=== PATIENT | female | born 1990 | race Caucasian/White ===

== ENCOUNTER → 2017-03-27 16:26 | Outpatient (CLI) | payer OTHER, SELFPAY ==
[2017-03-27] MEDS: Lactated Ringers 1,000 ML 1000 ML IV (16:25)
[2017-03-27 16:32] VITALS: BP 133/79; PULSE 86; RESP 18; TEMP 36.8; O2SAT 95; BMI 36.8
== END ==
PROVIDERS: Family Provider Family Medicine; PCP Family Medicine; Visit Provider Obstetrics & Gynecology
DX: O26.899 Other specified pregnancy related conditions, unspecified trimester (principal); R11.0 Nausea; R19.7 Diarrhea, unspecified; Z3A.00 Weeks of gestation of pregnancy not specified
CPT/HCPCS: 96360; J7120; A4216

== ENCOUNTER → 2017-04-29 11:11 | Outpatient (CLI) | payer OTHER, SELFPAY ==
[2017-04-29 11:36] LABS: ROM Internal Control Test YES-OK TO RESULT pt. (Internal QC); ROM Patient Test Negative (Negative)
== END ==
PROVIDERS: Family Provider Family Medicine; PCP Family Medicine; Visit Provider Nurse Practitioner Women's Health
DX: O42.90 Premature rupture of membranes, unspecified as to length of time between rupture and onset of labor, unspecified weeks of gestation (principal)
CPT/HCPCS: 84112

== ENCOUNTER → 2017-05-04 08:39 | Outpatient (CLI) | payer OTHER, SELFPAY ==
[2017-05-04 09:40] LABS: Absolute Lymphocyte Count 1.62 X10^3/ul (0.83-4.51); Absolute Neutrophil Count 6.4 X10^3/uL (2.0-7.7); Basophil# 0.02 X10^3/uL; Basophil% 0.2 % (0-1); Eosinophil# 0.06 X10^3/uL; Eosinophils% 0.7 % (0-5); Hematocrit 32.1 % (37-47); Hemoglobin 10.4 g/dl (12.0-15.0); Lymphocyte # 1.62 X10^3/ul (4.0); Lymphocyte % 18.4 % (19-41); Mean Corp Hgb Conc 32.4 g/gl (32-36); Mean Corpuscular Hgb 28.3 pg (27.0-32.0); Mean Corpuscular Volume 87.2 fL (81-99); Mean Platelet Vol. 12.2 fl (6.2-12.0); Monocyte# 0.69 X10^3/uL; Monocyte% 7.8 % (0-10); Neutrophil # 6.39 X10^3/uL (2.7-7.7); Neutrophil % 72.4 % (47-70); Platelet Count 175 K/mm3 (150-450); RBC Distribution Width CV 14.7 % (11.6-14.6); RBC Distribution Width SD 45.2 fl (35.1-43.9); Red Blood Count 3.68 M/mm3 (4.2-5.4); White Blood Count 8.8 K/mm3 (4.4-11.0)
[2017-05-04 09:41] LABS: POSITIVE COUNT NO; POSITIVE DIFFERENTIAL NO; POSITIVE MORPHOLOGY NO
[2017-05-04 10:04] LABS: Glucose Challenge Gest 1H 50g 93 mg/dL (70-140)
== END ==
PROVIDERS: Family Provider Family Medicine; PCP Family Medicine; Visit Provider Obstetrics & Gynecology
DX: Z34.01 Encounter for supervision of normal first pregnancy, first trimester (principal)
CPT/HCPCS: 36415; 82950; 85025

== ENCOUNTER → 2017-06-15 09:05 | Outpatient (CLI) | payer OTHER, SELFPAY ==
[2017-06-15 13:39] LABS: Absolute Lymphocyte Count 1.38 X10^3/ul (0.83-4.51); Absolute Neutrophil Count 6.6 X10^3/uL (2.0-7.7); Basophil# 0.01 X10^3/uL; Basophil% 0.1 % (0-1); Eosinophil# 0.08 X10^3/uL; Eosinophils% 0.9 % (0-5); Hematocrit 33.7 % (37-47); Hemoglobin 10.8 g/dl (12.0-15.0); Lymphocyte # 1.38 X10^3/ul (4.0); Lymphocyte % 15.9 % (19-41); Mean Corpuscular Hgb 27.7 pg (27.0-32.0); Mean Corpuscular Volume 86.4 fL (81-99); Monocyte% 6.9 % (0-10); Neutrophil # 6.56 X10^3/uL (2.7-7.7); Neutrophil % 75.5 % (47-70); Platelet Count 147 K/mm3 (150-450); RBC Distribution Width CV 15.9 % (11.6-14.6); RBC Distribution Width SD 49.3 fl (35.1-43.9); White Blood Count 8.7 K/mm3 (4.4-11.0)
[2017-06-15 14:03] LABS: Differential Indicated SCAN CRITERIA MET; POSITIVE COUNT NO; POSITIVE DIFFERENTIAL NO; POSITIVE MORPHOLOGY YES
== END ==
PROVIDERS: Nurse Practitioner Women's Health; Family Provider Family Medicine; PCP Family Medicine; Visit Provider Obstetrics & Gynecology
DX: O99.013 Anemia complicating pregnancy, third trimester (principal); Z3A.00 Weeks of gestation of pregnancy not specified
CPT/HCPCS: 36415; 85025

== ENCOUNTER → 2017-06-30 14:19 | Outpatient (CLI) | payer OTHER, SELFPAY ==
[2017-06-30 16:03] LABS: Group B Strep DNA By PCR POSITIVE (Negative); Probe Check PASS
== END ==
PROVIDERS: Visit Provider Obstetrics & Gynecology
DX: Z34.01 Encounter for supervision of normal first pregnancy, first trimester (principal)
CPT/HCPCS: 87653

== ENCOUNTER 2017-07-15 09:47 | Outpatient (CLI) | payer OTHER, SELFPAY ==
--- NOTE | 2017-07-15 10:00 | US_ITS ---
STUDY: OBSTETRICAL ULTRASOUND - BIOPHYSICAL PROFILE REASON FOR EXAM: Female, 27 years old. Decreased movement. LMP: October 21, 2016. PRIOR ULTRASOUND: Comparison is made with prior study dated March 09, 2017. TECHNIQUE: Transabdominal ultrasound evaluation was performed. FINDINGS: There is a single intrauterine fetus. The fetus is in a cephalic presentation. There is demonstrated cardiac activity with a heart rate of 123 bpm. There is a normal amniotic fluid volume. The largest amniotic fluid pocket measures 4.3 cm. The amniotic fluid index (RADHA) is 15.1 cm. The placenta is posterior in location and is not low lying. There are Grade 1 placental changes. Age by LMP: 38 weeks, 1 days. EDUARDO by LMP: July 28, 2017. age by prior US: 37 weeks, 6 days. EDUARDO by prior US: July 30, 2017. age by current US: 38 weeks, 1 days. EDUARDO by current US: July 28, 2017. Gender: Female BIOPHYSICAL PROFILE: Breathing Movements (FBM): 2 Gross Body Movements (GBM): 2 Tone (FT): 2 Amniotic Fluid Volume (AFV): 2 TOTAL SCORE: 8 / 8 US/Biophysical Profile IMPRESSION: Normal biophysical profile of 8/8. Electronically Signed: Moises Owens MD at 12:33 EDT Tel [phone], Service support ,
--- NOTE | 2017-07-15 14:59 | OB.TRI.NOTE ---
- Problem List (1) Decreased movement Status: Acute (2) Variable deceleration Status: Acute History of Present Illness Reason For Visit: DECREASED MOVEMENT Allergies No Known Allergies Allergy (Verified 07/15/17 09:17) - Pertinent Past Medical History Medical History: Past Medical History (Last Reviewed 07/15/17 @ 09:16 by Keysha Deal) PCOS (polycystic ovarian syndrome) NST - FHR Rate Baby A Baseline: 130 Variability:: Moderate Accelerations:: 15 x 15 Decelerations:: None NST Reactive:: Yes FHR Category:: Category I Uterine Activity:: no regular Impression/Plan decreased movement and variable decel in the office bpp 8/ reactive nst no decels reassuring dc home kick counts
== END 2017-07-15 12:00 | disposition home or self-care (01) ==
LOC: WPOUT 09:51 → WP 09:52
PROVIDERS: Family Provider Family Medicine; PCP Family Medicine; Visit Provider Obstetrics & Gynecology
DX: O36.8190 Decreased fetal movements, unspecified trimester, not applicable or unspecified (principal); Z3A.00 Weeks of gestation of pregnancy not specified
CPT/HCPCS: 59025; 59050; 76818; 99218; G0378

== ENCOUNTER 2017-08-03 18:45 | Inpatient (IN) | payer OTHER, SELFPAY ==
[2017-08-03 19:44] VITALS: BMI 42.0
[2017-08-03] MEDS: miSOPROStol 25 MCG TABLET VAGINAL ×2 (19:47→23:54)
[2017-08-03 20:37] LABS: Hematocrit 31.5 % (37-47); Mean Corp Hgb Conc 31.7 g/gl (32-36); Mean Corpuscular Hgb 26.5 pg (27.0-32.0); Mean Corpuscular Volume 83.6 fL (81-99); Platelet Count 131 K/mm3 (150-450); RBC Distribution Width CV 17.1 % (11.6-14.6); Red Blood Count 3.77 M/mm3 (4.2-5.4); White Blood Count 9.1 K/mm3 (4.4-11.0)
[2017-08-03 20:46] LABS: Scan Indicated on CBC? Y/N YES- FLAGS NOTED
[2017-08-03 20:58] LABS: Differential Comment SCANNED
--- NOTE | 2017-08-03 21:07 | HP.PCM_ITS ---
- Problem List (1) Post-dates Status: Acute (2) GBS (group B Streptococcus carrier), +RV culture, currently Status: Acute Comment: pcn in labor (3) Anemia during in third trimester Status: Acute Comment: iron, cbc monthly (4) Supervision of normal Status: Acute Qualifiers: Comment: PRR EDUARDO girl jono 07/28/17 Spencer History Date of Admission: 08/03/17 Final EDUARDO: 07/28/17 Gestational age: 40 Weeks and 6 Days History of this : This is a 27 year-old, at 40 weeks 6 days gestational age prsents for IOL secondary to postdates Medical History: Medical History (Last Reviewed 08/03/17 @ 08:15 by Carin Del Rosario) PCOS (polycystic ovarian syndrome) E28.2 Allergies No Known Allergies Allergy (Verified 07/15/17 09:17) Home Medications: Home Medications vitamin,calcium,fzmkccum-nyzt-aoybm acid tablet 1 tab PO QDAY 01/22/17 Smoking Status: Never smoker Alcohol: None Number of Fetus(es): 1 Heart Tracin moderate variability reactive cat I TOCO Analysis: irregular History Past Pregnancies: Past Pregnancies Delivery Date Name GA/Weeks Outcome Route Weight Gender Labor Length Anesthesia Delivery Location Provider FOB Labs: All Active Problems (Last Reviewed 08/03/17 @ 08:15 by Carin Del Rosario) GBS (group B Streptococcus carrier), +RV culture, currently (Acute) Anemia during in third trimester (Acute) Supervision of normal (Acute) screening encounter (Resolved) Decreased movement (Resolved) Segmental and somatic dysfunction of lumbar region (Resolved) Segmental and somatic dysfunction of pelvic region (Resolved) Segmental and somatic dysfunction of sacral region (Resolved) Variable deceleration (Resolved) Mom's Labs & Results 08/03/17 08/03/17 19:35 19:35 WBC 9.1 RBC 3.77 L Hgb 10.0 L Hct 31.5 L MCV 83.6 MCH 26.5 L MCHC 31.7 L RDW 17.1 H RDW Differential 52.0 H Plt Count 131 L MPV TNP Differential Comment SCANNED Blood Type A POSITIVE Antibody Screen NEGATIVE Course Did the patient receive Yes care? Labs RPR/VDRL/Syphilis Nonreactive Rubella status Immune HbSAg Negative Date Done: 02/23/17 Chlamydia Negative Gonorrhea Negative HIV/AIDS Non-Reactive Group B Strep: Positive Current Obstetrical History Gestational Diabetes No Incompetent Cervix No Infertility Yes: had IUI but not for this , pt with PCOS IUGR No Macrosomia No Hypertension/Pre-eclampsia No Placenta Previa/Abruption No PTL/PROM No Uterine anomaly No Oligohydramnios No Polyhydramnios No Multiple gestation No Past Medical History Asthma No Diabetes No Hypertension No Heart disease No Mitral valve prolapse No Neurologic/Seizure disorder/ No Migraines Kidney disease No Liver disease No Varicosities No Clotting disorders/Hx of DVT No Thyroid Dysfunction No Other medical diseases No Psychiatric disorders No Major trauma No Abnormal PAP smear No Sleep apnea No Mammogram in the last 2 years No Social History Marital Status: Alleged father Spencer Cesar Hx Smoking No Smoking Status Never smoker How long have you used pt denies substances (years)? Expected Delivery Method: Spontaneous Vaginal Review of Systems Constitutional: Denies: Fever, Malaise Eyes: Denies: Blurred vision, Vision Change HEENT: Denies: Head Aches, Visual Changes Cardiovascular: Denies: Chest Pain, Palpitations Respiratory: Denies: Cough, Shortness of Breath, Wheezing Gastrointestinal: Denies: Abdominal Pain, Diarrhea, Nausea, Vomiting Genitourinary: Denies: Dysuria, Hematuria Musculoskeletal: Denies: Joint Pain, Muscle pain Skin: Denies: Lesions, Rash Neurological: Denies: Blurred vision, Focal weakness, Headaches Psychiatric: Denies: Anxiety, Depression Endocrine: Denies: Heat/ Cold Intolerance Hematologic/ Lymphatic: Denies: Easy Bruising, Easy Bleeding Physical Exam General: Alert, Cooperative, No apparent distress HEENT: Atraumatic, Normocephalic. Negative for: Thyromegaly, Lymphadenopathy Cardiovascular: Regular rate Lungs: Normal air movement Abdomen: Soft, Non Tender, Gravid Neurological: Deep Tendon Reflexes 2+/4 and Symmetrical, Neuro grossly intact. Negative for: Clonus [employer]OR: Normal external genitalia. Negative for: Vulvar lesions Estimated gestational size: Appropriate for gestational size Presentation: Cephalic Assessment/Plan All Active Problems (Last Reviewed 08/03/17 @ 08:15 by Carin Del Rosario) Post-dates (Acute) GBS (group B Streptococcus carrier), +RV culture, currently (Acute) Anemia during in third trimester (Acute) Supervision of normal (Acute) screening encounter (Resolved) Decreased movement (Resolved) Segmental and somatic dysfunction of lumbar region (Resolved) Segmental and somatic dysfunction of pelvic region (Resolved) Segmental and somatic dysfunction of sacral region (Resolved) Variable deceleration (Resolved) This is a 27 year-old, at 40 weeks 6d gestational age prsents for IOL due to postdates plan cytotec then pitocin gbs positive give pcn epi PRN
[2017-08-03] MEDS: DiphenhydrAMINE 25 MG Capsule 50 MG PO (21:22)
[2017-08-04] VITALS (14 sets, daily range): BP systolic 99–138; BP diastolic 56–86; PULSE 67–94; RESP 16–18; TEMP 36–37.2; O2SAT 96–100
[2017-08-04] MEDS: Nalbuphine 10 MG/ML Ampul IV ×3 (00:10→12:46)
[2017-08-04] MEDS: 0.9% Saline Lock 10 ML Syringe IV ×2 (00:10→04:55)
[2017-08-04] MEDS: miSOPROStol 25 MCG TABLET VAGINAL ×2 (03:48→08:31)
--- NOTE | 2017-08-04 10:59 | PCM.PN.BLA ---
Progress Note patient doing wel overnight cytotec, category I tracing. epi PRN.
[2017-08-04] MEDS: Lactated Ringers 1,000 ML 50 ML IV (13:00)
[2017-08-04] MEDS: fentaNYL-bupivacaine (epidural) 100 ML BAG EPIDURAL (14:05)
[2017-08-04] MEDS: Ondansetron 4 MG/2 ML Vial IV (14:18)
[2017-08-04] MEDS: Amnioinfusion- 0.9% NS 1,000 ML IV.SOLN. 500 ML INTRA-UTER (14:30)
[2017-08-04] MEDS: Terbutaline 1 MG/ML Vial 0.25 MG SC (14:43)
[2017-08-04] MEDS: Oxytocin 30 units/NS 500 ml 30 UNITS/500 ML IV.SOLN 167 UNITS IV (15:03)
[2017-08-04] MEDS: Lactated Ringers 1,000 ML 100 ML IV (20:20)
[2017-08-04] MEDS: Ketorolac 30 MG/ML Syringe IV (21:32)
[2017-08-04] MEDS: Cefazolin 1 GM/50 ML BAG IV (22:31)
[2017-08-05] VITALS (13 sets, daily range): BP systolic 120–139; BP diastolic 73–83; PULSE 81–102; RESP 16–18; TEMP 36.6–37.4; O2SAT 94–98
[2017-08-05] MEDS: Ketorolac 30 MG/ML Syringe IV ×4 (04:17→22:10)
[2017-08-05 04:51] LABS: Hematocrit 28.4 % (37-47); Hemoglobin 8.9 g/dl (12.0-15.0); Mean Corp Hgb Conc 31.3 g/gl (32-36); Mean Corpuscular Hgb 26.3 pg (27.0-32.0); Platelet Count 115 K/mm3 (150-450); RBC Distribution Width CV 17.4 % (11.6-14.6); RBC Distribution Width SD 53.4 fl (35.1-43.9); Red Blood Count 3.38 M/mm3 (4.2-5.4); White Blood Count 11.4 K/mm3 (4.4-11.0)
[2017-08-05 05:10] LABS: Differential Comment SCAN; Scan Indicated on CBC? Y/N YES- FLAGS NOTED
--- NOTE | 2017-08-05 05:29 | NURSING ---
At 0430 Patient up to bathroom with assistance from this RN and Felipe RN, performed giovanna care and changed pads. Pt tolerated this activity well and went back to bed.
[2017-08-05] MEDS: Cefazolin 1 GM/50 ML BAG IV (06:49)
--- NOTE | 2017-08-05 06:56 | PCM.OPRPT ---
Problem List (1) Post-dates Status: Acute (2) GBS (group B Streptococcus carrier), +RV culture, currently Status: Acute Comment: pcn in labor (3) Anemia during in third trimester Status: Acute Comment: iron, cbc monthly (4) Supervision of normal Status: Acute Qualifiers: Comment: PRR EDUARDO girl jono 07/28/17 Spencer (5) bradycardia Status: Acute (6) Failed vacuum extraction delivery Status: Acute Report of Operation Date of Procedure: 08/04/17 Pre-Operative Diagnosis: bradycardia, failed vacuum delivery Post-Operative Diagnosis: same Surgery/Procedure Performed:: ltcs stat Description of Surgical Findings:: vertex female Type of Anesthesia:: Epidural Special Medications: terbutaline Specimen's removed: vertex female Estimated Blood Loss (mL): 900 Fluids Replaced: crystalloid Description of Procedure: Patient presented for induction of labor secondary to postdates. Patient underwent Cytotec induction of labor and made change to 2 cm 80% effaced and -2 station. Patient proceeded to make dilation on her own and therefore Pitocin was not started. Patient developed mild recurrent periodic variables and resuscitative maneuvers were employed with IV fluids, oxygen, position changes, and an amnioinfusion was started. She then developed a prolonged deceleration and was transported to the OR for possible immediate . Terbutaline was given during this time. Patient was rechecked and noted to be completely dilated and +2 station. Lovelace catheter was in place. Anesthesia was present and back up was in place for an emergent if necessary. Epidural anesthesia was in place. It was felt that there was an adequate pelvis and the size was approximately 8 pounds. heart rate initially recovered for a minute to a normal baseline with marked variability but then again showed showed minimal to moderate variability but persistent bradycardia into the 70s-80s was noted pulls were made the patient was placed in the dorsal supine position with leftward tilt. Patient was prepped and draped the splash Betadine prep. Patient was checked and noted to have an adequate epidural anesthesia so anesthesia dosed her IV with medication and prepared for general anesthesia if needed. The patient was again checked and was communicated with anesthesia that they would continue giving her anesthesia and the initial incision was made and the patient checked and gave permission to proceed. Incision was carried through to the underlying layer of fascia with the scalpel. Fascia was nicked in the midline and the incision extended laterally and the peritoneum was entered digitally. The incision was stretched and a low transverse uterine incision was made with the scalpel. With aid from a hand from below the infant's head was delivered atraumatically followed by the anterior and posterior shoulders without complication the rest of the infant delivered. The cord was clamped and cut and the infant was handed off to awaiting nurse. The placenta was delivered spontaneously immediately following and was noted to be intact and have a three-vessel cord. The uterus was exteriorized cleared of all clots and debris, and the incision was closed in a double layer closure using #1 Monocryl. The uterus was returned to the maternal abdomen and gutters were cleared of all clots and debris. The ovaries and fallopian tubes were noted to be within normal limits. The peritoneum was closed with 3-0 Monocryl in a running fashion. Fascia was closed with 0 PDS in a running fashion. Subcutaneous tissue was copiously irrigated and the subcutaneous space and the skin was closed with 3-0 Monocryl. Mepilex dressing applied. Patient was taken to recovery in stable condition. Grafts/Implants Used: none - Complications none
--- NOTE | 2017-08-05 07:11 | OP.PCM_ITS ---
Problem List (1) Post-dates Status: Acute (2) GBS (group B Streptococcus carrier), +RV culture, currently Status: Acute Comment: pcn in labor (3) Anemia during in third trimester Status: Acute Comment: iron, cbc monthly (4) Supervision of normal Status: Acute Qualifiers: Comment: PRR EDUARDO girl jono 07/28/17 Spencer (5) bradycardia Status: Acute (6) Failed vacuum extraction delivery Status: Acute Report of Operation Date of Procedure: 08/04/17 Pre-Operative Diagnosis: bradycardia, failed vacuum delivery Post-Operative Diagnosis: same Surgery/Procedure Performed:: ltcs stat Description of Surgical Findings:: vertex female Type of Anesthesia:: Epidural Special Medications: terbutaline Specimen's removed: vertex female Estimated Blood Loss (mL): 900 Fluids Replaced: crystalloid Description of Procedure: Patient presented for induction of labor secondary to postdates. Patient underwent Cytotec induction of labor and made change to 2 cm 80% effaced and -2 station. Patient proceeded to make dilation on her own and therefore Pitocin was not started. Patient developed mild recurrent periodic variables and resuscitative maneuvers were employed with IV fluids, oxygen, position changes, and an amnioinfusion was started. She then developed a prolonged deceleration and was transported to the OR for possible immediate . Terbutaline was given during this time. Patient was rechecked and noted to be completely dilated and +2 station. Lovelace catheter was in place. Anesthesia was present and back up was in place for an emergent if necessary. Epidural anesthesia was in place. It was felt that there was an adequate pelvis and the size was approximately 8 pounds. heart rate initially recovered for a minute to a normal baseline with marked variability but then again showed showed minimal to moderate variability but persistent bradycardia into the 70s- 80s was noted pulls were made the patient was placed in the dorsal supine position with leftward tilt. Patient was prepped and draped the splash Betadine prep. Patient was checked and noted to have an adequate epidural anesthesia so anesthesia dosed her IV with medication and prepared for general anesthesia if needed. The patient was again checked and was communicated with anesthesia that they would continue giving her anesthesia and the initial incision was made and the patient checked and gave permission to proceed. Incision was carried through to the underlying layer of fascia with the scalpel. Fascia was nicked in the midline and the incision extended laterally and the peritoneum was entered digitally. The incision was stretched and a low transverse uterine incision was made with the scalpel. With aid from a hand from below the 's head was delivered atraumatically followed by the anterior and posterior shoulders without complication the rest of the delivered. The cord was clamped and cut and the was handed off to awaiting nurse. The placenta was delivered spontaneously immediately following and was noted to be intact and have a three-vessel cord. The uterus was exteriorized cleared of all clots and debris, and the incision was closed in a double layer closure using #1 Monocryl. The uterus was returned to the maternal abdomen and gutters were cleared of all clots and debris. The ovaries and fallopian tubes were noted to be within normal limits. The peritoneum was closed with 3-0 Monocryl in a running fashion. Fascia was closed with 0 PDS in a running fashion. Subcutaneous tissue was copiously irrigated and the subcutaneous space and the skin was closed with 3-0 Monocryl. Mepilex dressing applied. Patient was taken to recovery in stable condition. Grafts/Implants Used: none - Complications none
[2017-08-05] MEDS: Lactated Ringers 1,000 ML 100 ML IV (07:43)
[2017-08-05] MEDS: Acetaminophen 500 MG Tablet 1000 MG PO (07:47)
[2017-08-05] MEDS: Senna/Docusate Sodium 1 Tablet PO (07:47)
[2017-08-05] MEDS: Prenatal Vits Tablet 1 TABLET PO (09:29)
[2017-08-05] MEDS: 0.9% Saline Lock 10 ML Syringe IV ×2 (09:30→22:10)
[2017-08-05] MEDS: oxyCODONE 5 MG Tablet PO ×2 (15:10→19:47)
[2017-08-05] MEDS: Albuterol 2.5 MG/3 ML VIAL.NEB. INHALATION (17:32)
--- NOTE | 2017-08-05 20:22 | PCM.PN.OB ---
Patient Problems: Active and Suspected Problems (Last Reviewed 08/03/17 @ 08:15 by Carin Del Rosario) Post-dates (Acute) bradycardia (Acute) Failed vacuum extraction delivery (Acute) Subjective: late entry- patient seen at 7:45 am no cp sob n v doing well ambulating - Physical Exam General: Alert, Oriented x3 Vital Signs Temp Pulse Resp BP Pulse Ox 99.1 F 102 H 18 139/82 H 94 08/05/17 19:45 08/05/17 19:45 08/05/17 19:45 08/05/17 19:45 08/05/17 16:16 Oxygen Delivery Method Room Air Weight: 260 lb 2.327 oz Body Mass Index (BMI) 42.0 Intake and Output for Last 24 Hours 08/03/17 08/04/17 08/05/17 23:59 23:59 23:59 Intake Total 2800 / 2800 1556 / 1556 Output Total 150 / 150 1600 / 1600 Balance 2650 / 2650 -44 / -44 Laboratory Tests Past 24 Hrs 08/05/17 04:25 WBC 11.4 H RBC 3.38 L Hgb 8.9 L Hct 28.4 L MCV 84.0 MCH 26.3 L MCHC 31.3 L RDW 17.4 H RDW Differential 53.4 H Plt Count 115 L Differential Comment SCAN Medical Necessity - Tobacco Use Smoking Status: Never smoker Assessment/Plan All Active Problems (Last Reviewed 08/03/17 @ 08:15 by Carin Del Rosario) Post-dates (Acute) bradycardia (Acute) Failed vacuum extraction delivery (Acute) GBS (group B Streptococcus carrier), +RV culture, currently (Acute) Anemia during in third trimester (Acute) Supervision of normal (Acute) screening encounter (Resolved) Decreased movement (Resolved) Segmental and somatic dysfunction of lumbar region (Resolved) Segmental and somatic dysfunction of pelvic region (Resolved) Segmental and somatic dysfunction of sacral region (Resolved) Variable deceleration (Resolved) s/p LTCS routine care bam sumner
[2017-08-06 02:50] VITALS: BP 137/83; PULSE 94; RESP 17; TEMP 36.1
[2017-08-06] MEDS: Albuterol 2.5 MG/3 ML VIAL.NEB. INHALATION ×2 (03:09→23:00)
[2017-08-06 03:10] VITALS: PULSE 94; RESP 18
[2017-08-06] MEDS: 0.9% Saline Lock 10 ML Syringe IV (04:03)
[2017-08-06] MEDS: Ketorolac 30 MG/ML Syringe IV (04:03)
[2017-08-06] MEDS: oxyCODONE 5 MG Tablet PO ×6 (04:03→23:22)
[2017-08-06 08:00] VITALS: BP 133/80; PULSE 96; RESP 16; TEMP 37.1
[2017-08-06] MEDS: Senna/Docusate Sodium 1 Tablet PO (08:34)
[2017-08-06] MEDS: Prenatal Vits Tablet 1 TABLET PO (08:35)
[2017-08-06] MEDS: Naproxen 250 MG Tablet PO ×2 (10:06→20:52)
[2017-08-06 13:30] VITALS: BP 148/86; PULSE 98; RESP 18; TEMP 37.2
[2017-08-06] MEDS: Pantoprazole Sodium 20 MG Tablet PO ×2 (13:36→23:22)
[2017-08-06 20:20] VITALS: BP 134/77; PULSE 94; RESP 16; TEMP 37.3
[2017-08-06 23:00] VITALS: PULSE 86; RESP 16
[2017-08-07 02:00] VITALS: BP 137/89; PULSE 99; RESP 16; TEMP 37.1
[2017-08-07 08:30] VITALS: BP 133/73; PULSE 89; RESP 18; TEMP 36.7; O2SAT 97
[2017-08-07] MEDS: oxyCODONE 5 MG Tablet PO ×3 (08:39→20:31)
[2017-08-07] MEDS: Prenatal Vits Tablet 1 TABLET PO (08:41)
[2017-08-07] MEDS: Pantoprazole Sodium 20 MG Tablet PO ×2 (09:40→22:02)
--- NOTE | 2017-08-07 12:52 | PCM.PN.OB ---
Patient Problems: Active and Suspected Problems (Last Reviewed 08/03/17 @ 08:15 by Carin Del Rosario) Post-dates (Acute) bradycardia (Acute) Failed vacuum extraction delivery (Acute) Subjective: doing well but having some pain control issues, some SOB at times, better with breathing treatments - Physical Exam General: Alert, Oriented x3 Lungs: Clear to auscultation Cardiovascular: Regular rate Abdomen: Soft, Non Tender Vital Signs Temp Pulse Resp BP Pulse Ox 98.1 F 89 18 133/73 H 97 08/07/17 08:30 08/07/17 08:30 08/07/17 08:30 08/07/17 08:30 08/07/17 08:30 Oxygen Delivery Method Room Air Weight: 260 lb 2.327 oz Body Mass Index (BMI) 42.0 Intake and Output for Last 24 Hours 08/05/17 08/06/17 08/07/17 23:59 23:59 23:59 Intake Total 1556 / 1556 Output Total 1600 / 1600 Balance -44 / -44 Medical Necessity - Tobacco Use Smoking Status: Never smoker Assessment/Plan All Active Problems (Last Reviewed 08/03/17 @ 08:15 by Carin Del Rosario) Post-dates (Acute) bradycardia (Acute) Failed vacuum extraction delivery (Acute) GBS (group B Streptococcus carrier), +RV culture, currently (Acute) Anemia during in third trimester (Acute) Supervision of normal (Acute) screening encounter (Resolved) Decreased movement (Resolved) Segmental and somatic dysfunction of lumbar region (Resolved) Segmental and somatic dysfunction of pelvic region (Resolved) Segmental and somatic dysfunction of sacral region (Resolved) Variable deceleration (Resolved) s/p LTCS routine care dc home tomorrow
[2017-08-07] MEDS: Naproxen 250 MG Tablet PO (13:19)
[2017-08-07 13:22] VITALS: PULSE 88; RESP 16
[2017-08-07] MEDS: Albuterol 2.5 MG/3 ML VIAL.NEB. INHALATION (13:22)
[2017-08-07 14:30] VITALS: BP 148/85; PULSE 109; RESP 18; TEMP 36.9; O2SAT 95
[2017-08-07 20:20] VITALS: BP 130/73; PULSE 100; RESP 18; TEMP 36.7
[2017-08-07] MEDS: Senna/Docusate Sodium 1 Tablet PO (20:30)
[2017-08-08] MEDS: Naproxen 250 MG Tablet PO (03:17)
[2017-08-08] MEDS: oxyCODONE 5 MG Tablet PO ×2 (03:18→11:01)
[2017-08-08 03:35] VITALS: BP 140/92; PULSE 78; RESP 18; TEMP 36.8
[2017-08-08] MEDS: Albuterol 2.5 MG/3 ML VIAL.NEB. INHALATION (04:34)
[2017-08-08 04:35] VITALS: PULSE 89; RESP 18
--- NOTE | 2017-08-08 05:25 | PCM.DC.SUM ---
Discharge Date and Diagnosis - Problem List Patient Problems: Active and Suspected Problems (Last Reviewed 08/03/17 @ 08:15 by Carin Del Rosario) Post-dates (Acute) bradycardia (Acute) Failed vacuum extraction delivery (Acute) Date of Admission: 08/03/17 Date of Discharge: 08/08/17 - Primary Discharge Diagnosis Active and Suspected Problems (Last Reviewed 08/03/17 @ 08:15 by Carin Del Rosario) Post-dates (Acute) bradycardia (Acute) Failed vacuum extraction delivery (Acute) Hospital Course and Treatment Consultations 08/03/17 18:55 Consult: Anesthesia Routine Comment: Reason For Exam: labor Operations: - - LTCS Summary of Care Provided: The patient is a 27 year old F presents IOL postdates and then proceeded to dilate and developed a bradycardia and she underwent a failed vacuum delivery followed by a primary csection. she had a routine recovery with a return of bowel and bladder function, stable for dc to home on pod 4 Discharge Diet: No Restrictions Discharge Activity: Return to Normal Activity Home Medications: Medications to take at Discharge vitamin,calcium,xcdqzdzh-yicf-rjkzf acid tablet 1 tab PO QDAY 01/22/17 Primary Care Physician: Care Physician,No Primary [Primary Care Provider] - Medical Necessity - Tobacco Use Smoking Status: Never smoker Meaningful Use Info Meaningful Use Diagnoses (Choose all that apply): None applicable
--- NOTE | 2017-08-08 05:30 | DCINST_ITS ---
Discharge Diet: No Restrictions Discharge Activity: Return to Normal Activity May resume sexual activity in: 4-6 weeks Lifting Restrictions: 20 pounds Additional Activity Instructions:: Nothing in the vagina for 4-6 weeks. You may return to work/school in 6 weeks. Call your doctor if your incision/area has: Continuous Slow Oozing, Sudden Increased Bleeding, Increased Pain/ Swelling, Increased Redness, Foul Smelling Discharge Call your doctor if you observe: Fever of 101 or Higher, Using more than one pad per hour - for 2 hours Suture Line Care: Avoid Pulling/Pushing, Avoid Pinching/Bending Cleanse incision/area with: Keep Dressing Clean & Dry Additional Instructions: If you experience any of the following, contact your healthcare provider. * Bleeding that soaks a pad every hour for 2 hours * Fever 100.4 or higher * Unrelieved incision or abdominal pain * Swelling, redness, discharge or bleeding from your incision or episiotomy site * Your incision begins to separate * Problems urinating (including inability to urinate or burning while urinating) . * Visual changes * Severe headache * Flu-like symptoms * Pain or redness in one of both of your breasts * Pain, warmth, tenderness or swelling in your legs, especially the calf area * Frequent nausea and vomiting * Symptoms of depression or anxiety If you experience any of the following, call 911 or go to the nearest Emergency Room. * Chest pain * Problems breathing * Seizure activity * Partial or complete paralysis of a body part, slurred speech, weakness or drooping of the face, or a sudden inability to walk or hold your balance Allergies/Adverse Reactions: Allergies No Known Allergies Allergy (Verified 07/15/17 09:17) Medications to take at Discharge vitamin,calcium,kvhoyuxw-ywuk-vfrwz acid tablet 1 tab PO QDAY 01/22/17 Naproxen [Naprosyn] 250 - 500 mg PO Q8H PRN PRN #30 tab 08/08/17 Oxycodone HCl/Acetaminophen [Percocet 5-325] 1 - 2 tablet PO Q4H PRN PRN 7 Days #28 tablet 08/08/17 The following prescriptions were given: Oxycodone HCl/Acetaminophen [Percocet 5-325] 1 - 2 tablet PO Q4H PRN PRN 7 Days #28 tablet PRN Reason: Moderate-Severe pain Naproxen [Naprosyn] 250 - 500 mg PO Q8H PRN PRN #30 tab PRN Reason: MILD PAIN Follow-Up: Call to make an appointment with your doctor for an incision check in 1-2 weeks. You will also need a 6 week post- follow up appointment. Please Follow Up With: Viki Lopez MD - Call to make an appointment for an incision check in 1-2 [phone] When: You will need a post- check in 6 weeks. Primary Care Physician: Care Physician,No Primary [Primary Care Provider] -
[2017-08-08 08:10] VITALS: BP 140/60; PULSE 78; RESP 16; TEMP 36.8; O2SAT 98
--- NOTE | 2017-08-08 10:12 | NURSING ---
This nurse went into to do 2 hour check on patient. Patient showed this nurse a cup with mucus that was blood tinged. This nurse contacted Dr. Lopez and is awaiting orders.
[2017-08-08] MEDS: Pantoprazole Sodium 20 MG Tablet PO (10:34)
[2017-08-08] MEDS: Prenatal Vits Tablet 1 TABLET PO (10:34)
--- NOTE | 2017-08-08 10:55 | RAD_ITS ---
STUDY: X-RAY CHEST REASON FOR EXAM: Female, 27 years old. Productive cough, bloody sputum TECHNIQUE: PA and lateral views of the chest. COMPARISON: None. FINDINGS: The lungs are clear and expanded. There is no demonstrated pleural abnormality. Normal size heart. Normal mediastinum and toribio. Normal visualized pulmonary arteries. Normal visualized aortic arch and descending thoracic aorta. Normal visualized thoracic spine. Normal visualized ribs, clavicles, and shoulders. There is no demonstrated abnormality of the visualized soft tissue structures of the upper abdomen. RAD/Chest PA and Lateral IMPRESSION: Normal x-ray examination of the chest. Electronically Signed: Juanpablo Puentes DO at 11:40 EDT Tel , Service support ,
[2017-08-08 11:32] LABS: Absolute Lymphocyte Count 1.26 X10^3/ul (0.83-4.51); Absolute Neutrophil Count 5.1 X10^3/uL (2.0-7.7); Basophil# 0.02 X10^3/uL; Basophil% 0.3 % (0-1); Eosinophil# 0.17 X10^3/uL; Eosinophils% 2.4 % (0-5); Hematocrit 25.6 % (37-47); Hemoglobin 8.1 g/dl (12.0-15.0); Lymphocyte # 1.26 X10^3/ul (4.0); Lymphocyte % 18.1 % (19-41); Mean Corp Hgb Conc 31.6 g/gl (32-36); Mean Corpuscular Hgb 27.5 pg (27.0-32.0); Mean Corpuscular Volume 86.8 fL (81-99); Mean Platelet Vol. 11.7 fl (6.2-12.0); Monocyte# 0.35 X10^3/uL; Neutrophil # 5.11 X10^3/uL (2.7-7.7); Neutrophil % 73.5 % (47-70); Platelet Count 190 K/mm3 (150-450); RBC Distribution Width CV 17.1 % (11.6-14.6); RBC Distribution Width SD 53.2 fl (35.1-43.9); Red Blood Count 2.95 M/mm3 (4.2-5.4)
[2017-08-08 11:33] LABS: POSITIVE COUNT NO; POSITIVE DIFFERENTIAL NO; POSITIVE MORPHOLOGY NO
[2017-08-08 14:00] VITALS: BP 125/80; PULSE 78; RESP 16; TEMP 36.8; O2SAT 99
== END 2017-08-08 15:35 | disposition home or self-care (01) | DRG 765 ==
PROVIDERS: Admitting Provider Obstetrics & Gynecology; Visit Provider Obstetrics & Gynecology
DX: O76 Abnormality in fetal heart rate and rhythm complicating labor and delivery (principal); O98.82 Other maternal infectious and parasitic diseases complicating childbirth; O48.0 Post-term pregnancy; Z3A.40 40 weeks gestation of pregnancy; O66.5 Attempted application of vacuum extractor and forceps; O99.02 Anemia complicating childbirth; B95.1 Streptococcus, group B, as the cause of diseases classified elsewhere; Z37.0 Single live birth
CPT/HCPCS: 59025; 59050; 71046; 85025; 85027; 86850; 86900; 94640; 99218; J7030; J7120; A4216; G0378; J2405

== ENCOUNTER 2017-08-09 14:00 | Outpatient (CLI) | payer OTHER, SELFPAY | END 2017-08-09 15:35 | disposition home or self-care (01) | LOC: WPOUT 14:09 → WP 14:10 | PROVIDERS: Visit Provider Obstetrics & Gynecology | DX: O92.79 Other disorders of lactation (principal) | CPT/HCPCS: 96152 ==

== ENCOUNTER 2017-08-11 18:30 | Outpatient (CLI) | payer OTHER, SELFPAY | END 2017-08-11 19:20 | disposition home or self-care (01) | LOC: WPOUT 19:00 → WP 19:01 | PROVIDERS: Visit Provider Obstetrics & Gynecology | DX: Z39.1 Encounter for care and examination of lactating mother (principal) | CPT/HCPCS: 96152 ==

== ENCOUNTER 2017-08-27 09:04 | Outpatient (CLI) | payer OTHER, SELFPAY | END 2017-08-27 10:05 | disposition home or self-care (01) | LOC: WPOUT 09:05 → WP 09:06 | PROVIDERS: Visit Provider Obstetrics & Gynecology | DX: O92.70 Unspecified disorders of lactation (principal) | CPT/HCPCS: 96152 ==

== ENCOUNTER 2017-09-28 15:15 | Outpatient (CLI) | payer OTHER, SELFPAY | END 2017-09-28 15:45 | disposition home or self-care (01) | LOC: WPOUT 15:15 → WP 15:17 | PROVIDERS: Visit Provider Obstetrics & Gynecology | DX: O92.79 Other disorders of lactation (principal) | CPT/HCPCS: 96152 ==

== ENCOUNTER → 2018-02-03 08:34 | Outpatient (CLI) | payer OTHER, SELFPAY ==
[2018-01-28 14:45] VITALS: BMI 37.5
[2018-02-03 12:50] LABS: Absolute Lymphocyte Count 1.25 X10^3/ul (0.83-4.51); Absolute Neutrophil Count 2.9 X10^3/uL (2.0-7.7); Basophil# 0.03 X10^3/uL; Basophil% 0.6 % (0-1); Eosinophil# 0.07 X10^3/uL; Eosinophils% 1.5 % (0-5); Hematocrit 36.2 % (37-47); Lymphocyte # 1.25 X10^3/ul (4.0); Lymphocyte % 26.8 % (19-41); Mean Corp Hgb Conc 30.4 g/gl (32-36); Mean Corpuscular Hgb 23.7 pg (27.0-32.0); Monocyte# 0.36 X10^3/uL; Monocyte% 7.7 % (0-10); Neutrophil # 2.94 X10^3/uL (2.7-7.7); Neutrophil % 63.2 % (47-70); Platelet Count 186 K/mm3 (150-450); RBC Distribution Width CV 16.2 % (11.6-14.6); RBC Distribution Width SD 46.3 fl (35.1-43.9); Red Blood Count 4.64 M/mm3 (4.2-5.4); White Blood Count 4.7 K/mm3 (4.4-11.0)
[2018-02-03 12:51] LABS: Differential Indicated SCAN CRITERIA MET; POSITIVE COUNT NO; POSITIVE DIFFERENTIAL NO; POSITIVE MORPHOLOGY YES
[2018-02-03 13:06] LABS: ALB/GLOB Ratio 0.9 RATIO (0.9-2.4); AST(SGOT) 14 U/L (15-37); Alanine Aminotransfer ALT/SGPT 27 U/L (13-56); Albumin, Serum 3.4 g/dL (3.2-5.0); Alkaline Phosphatase 43 U/L (45-117); Anion Gap 11 (5-15); BUN 12 mg/dL (7-18); BUN/Creat Ratio 13.5 RATIO (10-20); Calcium,Total 8.6 mg/dL (8.5-10.1); Chloride 108 mmol/L (98-107); Cholesterol 140 mg/dL (200); Creatinine, Serum 0.89 mg/dL (0.55-1.02); EST Glomerular Filtration Rate 80 mL/min (>60); Est Glom Filt Rate - Afr Amer 97 mL/min (>60); Globulin 3.8 g/dL (2.2-4.2); Glucose 81 mg/dL (74-106); High Density Lipoprotein 61 mg/dL; Potassium 4.2 mmol/L (3.5-5.1); Protein, Total 7.2 g/dL (6.4-8.2); Sodium Level 140 mmol/L (136-145); T4 Free Direct 1.17 ng/dL (0.76-1.46); Thyroid Stim Hormone (TSH) 1.53 uIU/mL (0.358-3.74); Triglycerides 83 mg/dL; Very Low Density Lipoprotein 17 mg/dL (5-40)
--- OUTSIDE RECORDS SUMMARY | 2018-05-07 09:09 | XMS RPT_ITS ---
:1990 Author Organization OHIP Support Name Relationship Address Phone JANAY SPENCER Unavailable [address] + [place] [address] UE Unavailable Unavailable Unavailable HAY, SPENCER Unavailable [address] + [place] [address] UE Unavailable Unavailable Unavailable HAY, SPENCER Unavailable [address] + [place] [address] UE Unavailable Unavailable Unavailable HAY, SPENCER Unavailable [address] + [place] [address] UE Unavailable Unavailable Unavailable HAY, SPENCER Unavailable [address] + [place] [address] UE Unavailable Unavailable Unavailable HAY, SPENCER Unavailable [address] + [place] [address] UE Unavailable Unavailable Unavailable HAY, SPENCER Unavailable [address] + [place] [address] UE Unavailable Unavailable Unavailable HAY, SPENCER Unavailable [address] + [place] [address] UE Unavailable Unavailable Unavailable HAY, SPENCER Unavailable [address] + [place] [address] UE Unavailable Unavailable Unavailable HAY, SPENCER Unavailable [address] + [place] [address] UE Unavailable Unavailable Unavailable HAY, SPENCER Unavailable [address] + [place] [address] UE Unavailable Unavailable Unavailable HAY, SPENCER Unavailable [address] + [place] [address] UE Unavailable Unavailable Unavailable HAY, SPENCER Unavailable [address] + [place] [address] UE Unavailable Unavailable Unavailable HAY, SPENCRE Unavailable [address] + [place] [address] UE Unavailable Unavailable Unavailable HAY, SPENCER Unavailable [address] + [place] [address] UE Unavailable Unavailable Unavailable HAY, SPENCER Unavailable [address] + [place] [address] UE Unavailable Unavailable Unavailable HAY, SPENCER Unavailable [address] + [place] [address] UE Unavailable Unavailable Unavailable HAY, SPENCER Unavailable [address] + [place] [address] UE Unavailable Unavailable Unavailable HAY, SPENCER Unavailable [address] + [place] [address] UE Unavailable Unavailable Unavailable HAY, SPENCER Unavailable [address] + [place] [address] UE Unavailable Unavailable Unavailable HAY, SPENCER Unavailable [address] + [place] [address] UE Unavailable Unavailable Unavailable HAY, SPENCER Unavailable [address] + [place] [address] UE Unavailable Unavailable Unavailable HAY, SPENCER Unavailable [address] + [place] [address] UE Unavailable Unavailable Unavailable HAY, SPENCER Unavailable [address] + [place] [address] UE Unavailable Unavailable Unavailable HAY, SPENCER Unavailable [address] + [place] [address] UE Unavailable Unavailable Unavailable HAY, SPENCER Unavailable [address] + [place] [address] UE Unavailable Unavailable Unavailable HAY, SPENCER Unavailable [address] + [place] [address] UE Unavailable Unavailable Unavailable HAY, SPENCER Unavailable [address] + [place] [address] UE Unavailable Unavailable Unavailable HAY, SPENCER Unavailable [address] + [place] [address] UE Unavailable Unavailable Unavailable HAY, SPENCER Unavailable [address] + [place] [address] UE Unavailable Unavailable Unavailable HAY, SPENCER Unavailable [address] + [place] [address] UE Unavailable Unavailable Unavailable HAY, SPENCER Unavailable [address] + [place] [address] UE Unavailable Unavailable Unavailable HAY, SPENCER Unavailable [address] + [place] [address] UE Unavailable Unavailable Unavailable HAY, SPENCER Unavailable [address] + [place] [address] UE Unavailable Unavailable Unavailable HAY, SPENCER Unavailable [address] + [place] [address] UE Unavailable Unavailable Unavailable HAY, SPENCER Unavailable [address] + [place] [address] UE Unavailable Unavailable Unavailable HAY, SPENCER Unavailable [address] + [place] [address] UE Unavailable Unavailable Unavailable HAY, SPENCER Unavailable [address] + [place] [address] UE Unavailable Unavailable Unavailable HAY, SPENCER Unavailable [address] + [place] [address] UE Unavailable Unavailable Unavailable HAY, SPENCER Unavailable [address] + [place] [address] UE Unavailable Unavailable Unavailable HAY, SPENCER Unavailable [address] + [place] [address] UE Unavailable Unavailable Unavailable HAY, SPENCER Unavailable [address] + [place] [address] UE Unavailable Unavailable Unavailable HAY, SPENCER Unavailable [address] + [place] [address] UE Unavailable Unavailable Unavailable HAY, SPENCER Unavailable [address] + [place] [address] UE Unavailable Unavailable Unavailable HAY, SPENCER Unavailable [address] + [place] [address] UE Unavailable Unavailable Unavailable HAY, SPENCER Unavailable [address] + [place] [address] UE Unavailable Unavailable Unavailable HAY, SPENCER Unavailable [address] + [place] [address] UE Unavailable Unavailable Unavailable HAY, SPENCER Unavailable [address] + [place] [address] UE Unavailable Unavailable Unavailable HAY, SPENCER Unavailable [address] + [place] [address] UE Unavailable Unavailable Unavailable HAY, SPENCER Unavailable [address] + [place] [address] UE Unavailable Unavailable Unavailable HAY, SPENCER Unavailable [address] + [place] [address] UE Unavailable Unavailable Unavailable HAY, SPENCER Unavailable [address] + [place] [address] UE Unavailable Unavailable Unavailable HAY, SPENCER Unavailable [address] + [place] [address] UE Unavailable Unavailable Unavailable Care Team Providers Name Role Phone Viki Lopez Attending Unavailable Brendon, Meng Referring Unavailable Brendon, Meng Primary Care Unavailable Viki Lopez Attending Unavailable Brendon, Meng Referring Unavailable Brendon, Meng Primary Care Unavailable Abebe Squires Attending Unavailable Shaw, Abebe Primary Care Unavailable Viik Lopez Attending Unavailable AmyonyViki Referring Unavailable Brendon, Meng Primary Care Unavailable Brendon, Meng Primary Care Unavailable Referred, Self Attending Unavailable Viki Lopez Attending Unavailable Brendon, Meng Referring Unavailable Brendon, Meng Primary Care Unavailable DossieTerriCJacob Attending Unavailable Brendon, Meng Referring Unavailable Brendon, Meng Primary Care Unavailable RobinPattiey Attending Unavailable Brendon, Meng Referring Unavailable Brendon, Meng Primary Care Unavailable Jordan Fior Attending Unavailable Brendon, Meng Primary Care Unavailable Robin Fior Referring Unavailable Dossie, Terri MaC. Attending Unavailable Brenodn, Meng Referring Unavailable Brendon, Meng Primary Care Unavailable Viki Lopez Attending Unavailable Santyanthony Viki Referring Unavailable Brendon, Meng Primary Care Unavailable Robin, Fior Attending Unavailable Brendon, Meng Referring Unavailable Brendon, Meng Primary Care Unavailable DossieTerriC. Attending Unavailable Brendon, Meng Referring Unavailable Brendon, Meng Primary Care Unavailable Dossie, Terri MaC. Attending Unavailable Brendon, Meng Referring Unavailable Brendon, Meng Primary Care Unavailable Dossie, Terri Menendez Attending Unavailable Brendon, Meng Referring Unavailable Brendon, Meng Primary Care Unavailable DossieTerriC. Attending Unavailable Brendon, Meng Referring Unavailable Brendon, Meng Primary Care Unavailable Dossie, Terri MaCJacob Attending Unavailable Brendon, Meng Referring Unavailable Brendon, Meng Primary Care Unavailable Marcanthony Viki Attending Unavailable Brendon, Meng Referring Unavailable Brendon, Meng Primary Care Unavailable Dossie, Terri Wolf.CJacob Attending Unavailable Brendon, Meng Referring Unavailable Brendon, Meng Primary Care Unavailable Fior Kelly Attending Unavailable Brendon, Meng Referring Unavailable Marcanthony, Viki Attending Unavailable Brendon, Meng Referring Unavailable Brendon, Meng Primary Care Unavailable Dossie, Terri Wolf.CJacob Attending Unavailable Brendon, Meng Referring Unavailable Brendon, Meng Primary Care Unavailable JordanFior Attending Unavailable Brendon, Meng Referring Unavailable Brendon, Meng Primary Care Unavailable Marcanthony Viki Attending Unavailable Brendon, Meng Primary Care Unavailable Dossie, Terri Wolf.CJacob Attending Unavailable Brendon, Meng Referring Unavailable Marcanthony, Viki Attending Unavailable Brendon, Meng Referring Unavailable Brendon, Meng Primary Care Unavailable Dossie, Terri Wolf.CJacob Attending Unavailable Brendon, Meng Referring Unavailable Dossie, Terri Wolf.CJacob Attending Unavailable Brendon, Meng Referring Unavailable Brendon, Meng Primary Care Unavailable Marcanthony, Viki Attending Unavailable Marcanthony, Viki Attending Unavailable Brendon, Meng Referring Unavailable Brendon, Meng Primary Care Unavailable Dossie, Terri Wolf.C. Attending Unavailable Brendon, Meng Referring Unavailable Brendon, Meng Primary Care Unavailable Marcanthony Viki Attending Unavailable Brendon, Meng Referring Unavailable Brendon, Meng Primary Care Unavailable Marcanthony, Viki Attending Unavailable Marcanthony, Viki Referring Unavailable Brendon, Meng Primary Care Unavailable Dossie, Terri D.C. Attending Unavailable Brendon, Meng Referring Unavailable Marcanthony, Viki Admitting Unavailable Marcanthony Viki Attending Unavailable Primay Care Physicia, No Primary Care Unavailable Marcanthony, Viki Referring Unavailable Marcanthony, Viki Attending Unavailable Marcanthony, Viki Referring Unavailable Brendon, Meng Primary Care Unavailable AmyonyAlexon Consulting Unavailable Dossie, Terri D.C. Attending Unavailable Brendon, Meng Referring Unavailable Primay Care Physicia, No Primary Care Unavailable Marcanthony, Viki Attending Unavailable BrendonMeng banda Referring Unavailable Primay Care Physicia, No Primary Care Unavailable Terri Su D.C. Attending Unavailable Brendon, Meng Referring Unavailable Primay Care Physicia, No Primary Care Unavailable Marcanthony, Viki Attending Unavailable Primay Care Physicia, No Referring Unavailable Primay Care Physicia, No Primary Care Unavailable Marcanthony, Viki Attending Unavailable BrendonMeng banda Referring Unavailable Primay Care Physicia, No Primary Care Unavailable Marcanthony, Viki Admitting Unavailable Marcanthony, Viki Attending Unavailable Marcanthony, Viki Referring Unavailable Primay Care Physicia, No Primary Care Unavailable Marcanthony, Viki Consulting Unavailable Marcanthony, Viki Admitting Unavailable Marcanthony, Viki Attending Unavailable Marcanthony, Viki Referring Unavailable Primay Care Physicia, No Primary Care Unavailable Marcanthony, Viki Consulting Unavailable Marcanthony, Viki Admitting Unavailable Marcanthony, Viki Attending Unavailable Marcanthony, Viki Referring Unavailable Primay Care Physicia, No Primary Care Unavailable Marcanthony, Viki Consulting Unavailable Marcanthony, Viki Admitting Unavailable Marcanthony, Viki Attending Unavailable Marcanthony, Viki Referring Unavailable Primay Care Physicia, No Primary Care Unavailable Marcanthony, Viki Consulting Unavailable Marcanthony, Viki Admitting Unavailable Marcanthony, Viki Attending Unavailable Marcanthony, Viki Referring Unavailable Primay Care Physicia, No Primary Care Unavailable Marcanthony, Viki Consulting Unavailable Marcanthony, Viki Attending Unavailable Primay Care Physicia, No Primary Care Unavailable Marcanthony, Viki Attending Unavailable Primay Care Physicia, No Referring Unavailable Marcanthony, Viki Attending Unavailable Primay Care Physicia, No Primary Care Unavailable Marcanthony, Viki Attending Unavailable Primay Care Physicia, No Referring Unavailable Marcanthony, Viki Attending Unavailable Marcanthony, Viki Referring Unavailable Primay Care Physicia, No Primary Care Unavailable Marcanthony, Viki Attending Unavailable Primay Care Physicia, No Referring Unavailable Primay Care Physicia, No Primary Care Unavailable Marcanthony, Viki Attending Unavailable Marcanthony, Viki Referring Unavailable Primay Care Physicia, No Primary Care Unavailable AHMEDALEISHAED Attending Unavailable AHMED, ALEISHA QUIJANOED Referring Unavailable AHMED, SHAMEEM MOHAMMED Referring Unavailable ALEISHA FLOWERS M Referring Unavailable IMCA Primary Care Unavailable TIGRE FLOWERSM M Referring Unavailable IMCA Primary Care Unavailable PROBLEMS PROBLEMS DATE TYPE CONDITION / CODE ATTENDING STATUS SOURCE 02/03/2018 Unknown Z00.01 - Encounter Abebe Squires Active [facility] for general adult Community medical examination Hospital with abnormal Repository findings / Z00.01(ICD-10) 02/03/2018 Unknown 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 / Repository E01.0(ICD-10) 11/14/2016 Active Dysphagia, NA Active [place] oroph[facility] Other / R13.12(ICD-10) [place] Repository 11/14/2016 Admitting Unknown / NA Active [place] General diagnosis [facility](Unknown[facility] Health System Repository 09/21/2017 Unknown Z39.1 - Encounter John, Active [facility] for care and [facility] examination of [facility] lactating mother / Repository Z39.1(ICD-10) 08/13/2017 Unknown O92.79 - Other Marcanthony, Active [facility] disorders of [facility] / Hospital O92.79(ICD-10) Repository 08/08/2017 Unknown G89.18 - Other acute Marcanthony, Active [facility] postprocedural pain [facility] / G89.18(ICD-10) Hospital Repository 07/10/2017 Unknown M99.05 - Segmental Dossie, Terri Active [facility] [place] and somatic [facility] Community dysfunction of Hospital pelvic region / Repository M99.05(ICD-10) 07/10/2017 Unknown M99.03 - Segmental Dossie, Terri Active [place] and somatic [facility] Community dysfunction of Hospital lumbar region / Repository M99.03(ICD-10) 07/10/2017 Unknown M99.04 - Segmental Dossie, Terri Active [facility] and somatic [facility] Community dysfunction of Hospital sacral region / Repository M99.04(ICD-10) 07/01/2017 Unknown Z34.01 - Encounter John, Active [facility] for supervision of [facility] normal first Hospital , first Repository trimester / Z34.01(ICD-10) 06/30/2017 Unknown O99.013 - Anemia Marcsergo, Active [facility] complicating [facility] , third Hospital trimester / Repository O99.013(ICD-10) 06/30/2017 Unknown Z3A.36 - 36 weeks Marcanthony, Active [facility] [place] gestation of [facility] / Hospital Z3A.36(ICD-10) Repository 05/18/2017 Unknown Z3A.29 - 29 weeks [facility] gestation of [facility] / Hospital Z3A.29(ICD-10) Repository 05/05/2017 Unknown Z34.90 - Encounter Terri Su Active [facility] for supervision of [facility] normal , [facility] unspecified, Repository unspecified trimester / Z34.90(ICD-10) 05/05/2017 Unknown Z23 - Encounter for Jordan, Active [facility] immunization / [facility] Z23(ICD-10) Hospital Repository 05/05/2017 Unknown Z3A.27 - 27 weeks Jordan, Active [facility] gestation of [facility] / Hospital Z3A.27(ICD-10) Repository 05/05/2017 Unknown O42.90 - Premature Jordan, Active [facility] rupture of [facility] membranes, Hospital unspecified as to Repository length of time between rupture and onset of labor, unspecified weeks of gestation / O42.90(ICD-10) 05/05/2017 Unknown O26.892 - Other Robin, Active [facility] specified [facility] related conditions, Hospital second trimester / Repository O26.892(ICD-10) 05/05/2017 Unknown N89.8 - Other Robin, Active [facility] specified [facility] noninflammatory Hospital disorders of vagina Repository / N89.8(ICD-10) 04/20/2017 Unknown Z3A.25 - [facility] gestation of [facility] / Hospital Z3A.25(ICD-10) Repository 03/23/2017 Unknown Z3A.21 - 21 weeks Mar[place], Active [facility] gestation of [facility] / Hospital Z3A.21(ICD-10) Repository PROCEDURES PROCEDURES No Procedure Records FoundRESULTS RESULTS CBC W/DIFF, AUTOMATED Collected: 02/03/2018 Status: F Source: [place] 8:35 AM [facility] REPOSITORY TYPE CODE TESTS RESULT OUT OF RANGE REFERENCE UNITS LAB L100.1000 4.4-11.0 K/mm3 Normal WBC 4.7 LAB L100.1200 4.2-5.4 M/mm3 Normal RBC 4.64 LAB L100.1300 12.0-15.0 g/dl Low HGB 11.0 LAB L100.1400 37-47 % Low HCT 36.2 LAB L100.1500 81-99 fL Low MCV 78.0 LAB L100.1600 27.0-32.0 pg Low MCH 23.7 LAB L100.1700 32-36 g/gl Low MCHC 30.4 LAB L100.1810 11.6-14.6 % High RDW CV 16.2 LAB L100.1820 35.1-43.9 fl High RDW SD 46.3 LAB L100.1900 150-450 K/mm3 Normal PLT 186 LAB L100.2100 47-70 % Normal NEUT% 63.2 LAB L100.2200 19-41 % Normal LY% 26.8 LAB L100.2300 0-10 % Normal MONO% 7.7 LAB L100.2400 0-5 % Normal EO% 1.5 LAB L100.2500 0-1 % Normal BASO% 0.6 LAB L100.2550 0.0-0.9 % Normal IM GRAN % 0.200 Result Comment: IG% - Immature Granulocytes (promyelocytes, myelocytes and metamyelocytes) > 1% indicates that a LEFT SHIFT is Present. LAB L100.2620 2.0-7.7 X10 3/uL Normal Absolute Neut 2.9 LAB L100.2720 0.83-4.51 X10 3/ul Normal Absolute Lymph 1.25 LAB L100.4500 Normal SMEAR COMMENT COMMENT Result Comment: SLIDE SCANNED - 1+ LARGE PLT. Performed By: #### L100.0100 #### [facility] [address] [place], [address] COMPREHENSIVE METABOLIC Collected: 02/03/2018 Status: F Source: [facility] 8:35 AM [facility] REPOSITORY TYPE CODE TESTS RESULT OUT OF RANGE REFERENCE UNITS LAB L501.0100 74-106 mg/dL Normal GLU 81 Result Comment: Please note revised GLUCOSE reference range effective 2017. LAB L501.1000 7-18 mg/dL Normal BUN 12 LAB L501.1100 0.55-1.02 mg/dL Normal CREAT,SERUM 0.89 Result Comment: The validity of the calculated GFR AND GFRAA in patients over 70 years has not been determined. Clinical correlation is essential. LAB L501.1110 >60 mL/min Normal EST GFR 80 Result Comment: Non- GFR Calc LAB L501.1115 >60 mL/min Normal EST GFR - AA 97 Result Comment: GFR Calc LAB L501.1300 10-20 RATIO Normal BUN/CRE 13.5 LAB L501.1500 6.4-8.2 g/dL T Normal PROT 7.2 LAB L501.1800 3.2-5.0 g/dL Normal ALB 3.4 LAB L501.1950 2.2-4.2 g/dL Normal GLOB 3.8 LAB L501.2000 0.9-2.4 RATIO Normal A/G 0.9 LAB L501.2200 8.5-10.1 mg/dL CA Normal 8.6 LAB L501.4100 15-37 U/L Low AST 14 LAB L501.4305 45-117 U/L Low ALK P 43 LAB L501.4405 13-56 U/L Normal ALT 27 LAB L501.4600 0.20-1.00 mg/dL T Normal BILI 0.30 LAB L501.5300 136-145 mmol/L NA Normal 140 LAB L501.5600 3.5-5.1 mmol/L K Normal 4.2 LAB L501.5900 98-107 mmol/L High CL 108 LAB L501.6100 21.0-32.0 mmol/L Normal CO2 21.0 LAB L501.6200 5-15 Normal GAP 11 Performed By: #### L500.4050, L500.4100, L501.9520, L506.0400 #### [facility] [address] [place], [place], [address] LIPID PROFILE Collected: 02/03/2018 Status: F Source: [place] 8:35 AM [facility] REPOSITORY TYPE CODE TESTS RESULT OUT OF RANGE REFERENCE UNITS LAB L501.4900 200 mg/dL Normal CHOL 140 Result Comment: <200 mg/dL Desirable 200-240 mg/dL Borderline >240 mg/dL High Risk LAB L501.5000 mg/dL Normal TRIG 83 Result Comment: The drugs N-Acetylcysteine and Metamizole may falsely depress this assay. Serum Triglycerides Reference Interval Normal <150 mg/dL Borderline high 150 - 199 mg/dL High 200 - 499 mg/dL Very High > or = 500 mg/dL LAB L501.6400 mg/dL Normal HDL 61 Result Comment: The drugs N-Acetylcysteine and Metamizole may falsely depress this assay. Reference Range HDL <40 mg/dL Low HDL Cholesterol HDL >or= 60 mg/dL High HDL Cholesterol LAB L501.6500 0-130 mg/dL Normal LDL 62 LAB L501.6600 5-40 mg/dL Normal VLDL 17 Performed By: #### L500.4050, L500.4100, L501.9520, L506.0400 #### [facility] [address] [place], [address] THYROID STIM HORMONE Collected: 02/03/2018 Status: F Source: [facility] [facility]) 8:35 AM [facility] REPOSITORY TYPE CODE TESTS RESULT OUT OF RANGE REFERENCE UNITS LAB L501.9520 0.358-3.74 uIU/mL Normal TSH 1.53 Performed By: #### L500.4050, L500.4100, L501.9520, L506.0400 #### [facility] [address] [place], [place], [address] T4 FREE DIRECT Collected: 02/03/2018 Status: F Source: [place] 8:35 AM [facility] REPOSITORY TYPE CODE TESTS RESULT OUT OF RANGE REFERENCE UNITS LAB L506.0400 0.76-1.46 ng/dL Normal T4 FREE 1.17 DIRECT Performed By: #### L500.4050, L500.4100, L501.9520, L506.0400 #### [facility] [address] [place], [address] ESOPHAGUS [id number] Observed: 12/17/2017 Status: F Source: [facility] 2:02 PM HEALTH SYSTEM REPOSITORY Performed at [facility] APPROVED BY: Ramiro Lindsay MD EXAM TITLE: ESOPHAGUS [id number] DATE: 12/17/2017 13:08 COMPARISON: None. CLINICAL INDICATION/HISTORY: Dysphagia, achalasia TECHNIQUE: Single contrast esophagram was performed by a orthodontic assistant. 80 images are submitted for interpretation. 2 minutes and 54 seconds of fluoroscopy time was utilized. FINDINGS: There is severe dilatation of the mid and distal segments of the esophagus with gradually tapered, smooth conical narrowing distally giving a parrot-beak appearance, compatible with the given clinical history of achalasia. There is retained ingested material within the distal esophagus. There is also retention of the contrast material within the esophagus over an extended period. No obvious mass or extrinsic mass effect. No ulceration is present. IMPRESSION: Findings compatible with achalasia. HISTORY PHYSICAL Observed: 11/25/2017 Status: COMPLETED Source: [place] 10:08 AM [facility] REPOSITORY HNO ID: [id number] Author: Aleisha Flowers Service: (none) Author Type: Physician Type: HANDP Filed: 11/25/2017 10:42 AM Note Text: HISTORY AND PHYSICAL Carin Gustafson, 27 year old female here for EGD to evaluate GERD and dysphagia Current history and physical on file: Yes Is a new History and Physical required for today's visit? No Indication for procedure: GERD PROCEDURE(S) SCHEDULED FOR: EGD (Esophagogastroduodenoscopy) with or without biopsies, removal of polyps or lesions, dilation ( any means), treatment of bleeding ( any means), Barrx treatment of Jairo's Esophagus, image tube placement or cryo therapy treatment based on clinical findings. BASELINE BEHAVIOR: Calm BASELINE ORIENTATION: A AND O x3 All medications and allergies reviewed: Yes Skin Assessment: Warm dry muscus membranes pink Airway/Respiratory Assessment: Airway: visualization of the uvula- Yes Mouth: opening greater than 2 fingerbreadths- Yes Neck: full range of motion- Yes Breath sounds clear/equal- Yes Cardiac Assessment: Regular rate and rhythm without murmur Abdominal Assessment: Abdomen soft, non-tender, no masses or organomegaly. Sedation Plan: Deep Additional Comments: None Aleisha Flowers MD [facility] Observed: 11/05/2017 Status: COMPLETED Source: [place] 12:00 AM [facility] REPOSITORY Letter Text UPPER ENDOSCOPY (EGD) You are scheduled at: [place] [address] You are scheduled for an EGD on 11/25/17 at 9:30 AM. YOU MUST have a responsible adult to drive you home and to assist you at home while you finish recovering from your sedation. Please limit the number of people that come with you to 1-2 people due to the limited waiting area. Bring your [employer] Tester's license, insurance card(s) and a list of your medications with you. Arrive 45 minutes before your scheduled exam time at 8:45 AM Do not eat or drink anything after midnight the night before, including gum and hard candy. If you take any heart, blood pressure or breathing medications, you can take these before 6:00am on the day of your exam with a little sip of water. 5 DAYS BEFORE THE EXAM STOP TAKING ASPIRIN OR ASPIRIN CONTAINING PRODUCTS, VITAMIN E, BLOOD THINNERS SUCH COUMADIN, WARFARIN, PLAVIX, AGGRENOX (Please consult with the prescribing doctor of your blood thinner). DAY OF THE EXAM Diabetics: Please do not take any of your diabetic medications on the morning of the procedure; you may take them after the procedure. Any questions, please call our office at [phone]. There will be a $50.00 charge for any no show appointments or same day cancels. [employer] OFFICE VISIT Observed: 09/21/2017 Status: F Source: [place] REPORT 2:44 PM [facility] [address] [place] [address] OFFICE VISIT Date of Service: 09/21/17 MR#: [id number] Acct: [id number] Name: CARIN GUSTAFSON Rep #: [id number] : 1990 Provider: Viki Lopez MD Age/Sex: 27/F Location: [facility] Status: Signed Intake Vital Signs09/21/17 Height 5 ft 6 in 09/21/17 Weight: 227 lb 4 oz 09/21/17 Body Mass Index (BMI) 36.6 09/21/17 Blood Pressure 131/78 Intake Visit Reasons: 6w PP Delivered 08/04/2018 Candle Wrapper Required: No Is patient in pain?: No Allergies No Known Allergies Allergy (Verified 09/21/17 14:16) Medications NK [NK] 09/21/17 [History Confirmed 09/21/17] : Yes PFSH Medical History PCOS (polycystic ovarian syndrome) (Acute) Family History Father Diabetes Mother Cancer skin Social History Smoking Status: Never smoker alcohol intake: never substance use type: does not use caffeine: Yes Type: carbonated beverages Number of servings: 2 seatbelt use: always additional social history: [employer] Pregancy History 2 Elective abortions Hx Para 1 Spontaneous abortions Past Pregnancies Del. DateName GA/Weeks Outcome Route Bth WeighInfant GeLabor LgtAnesthesiDel LocatProvider FOB t n h a n Delivery Date: 08/03/17 On 09/21/17 @ 14:18 Keysha Deal bradycardia- failed vacuum- can consider TOLAC next MANAGER ANALYTICAL assisted Depression Screen PHQ-2/9 PHQ-2 Over the last 2 weeks, how often have you been bothered by any of the following problems? 1. Little interest or pleasure in doing things: not at all 2. Feeling down, depressed, or hopeless: not at all Total score: 0 If score is 2 or greater, continue Source: Developed by Drs. Steve Lara, Cynthia Enriquez, Mohit Eller and colleagues, with an educational leigha from [employer]. Scoring: Total Score Depression Severity Action 1-4 Minimal depression No action needed 5-9 Mild depression Repeat PHQ-9 at follow up 10-14 Moderate depression Make tx plan,consider counseling, fup, prescription Post HPI 6w PP Delivered 08/04/2018: Details: CARIN GUSTAFSON is a 27 year old who presents for her post visit. Infant Feeding: Breast Menses resumed: No [place] since delivery: Yes Emotional Support: Yes Last Pap:: 2017 ROS Const Reports system reviewed and no additional complaints, except as docu GI Reports system reviewed and no additional complaints, except as docu, Denies bloating, Denies nausea, Denies vomiting, Denies constipation Reports system reviewed and no additional complaints, except as docu, Denies abnormal vaginal bleeding, Denies pelvic pain, Denies sexual problems, Denies urinary urgency, Denies vaginal discharge, Denies urinary hesitancy, Denies urinary incontinence Skin/Breast Reports system reviewed and no additional complaints, except as docu, Reports as per HPI Psych Reports as per HPI Exam Const General: cooperative, healthy appearing, comfortable, no acute distress HENMT Head: normal to inspection Neck Neck: normal visual inspection, no lymphadenopathy Thyroid: thyroid normal Chest Breast inspection: normal inspection of the breasts, normal inspection of the axillae Breast palpation: normal palpation of the breasts, normal palpation of the axillae Resp Effort AND Inspection: normal respiratory effort GI Inspection: normal to inspection Palpation: soft, no hepatosplenomegaly, nontender Other: Incision: C/D/I General: bladder normal to palpation External Female Exam: normal external appearance, normal appearance of the urethra Urethra: normal appearance of the urethra Speculum Exam - Vagina: normal appearance of the vagina, normal vaginal discharge Speculum Exam - Cervix: normal appearance of the cervix Bimanual Exam- Vagina AND Uterus: bladder normal to palpation, normal bimanual exam, uterine shape normal, uterine size normal, uterus non-tender Bimanual Exam- Adnexa, other: normal adnexae, pelvic support normal Pelvic Support: normal Skin General: no rashes or lesions noted Assessment AND Plan Problems 1. care and examination of lactating mother Z39.1 Plan Cervical cancer screenin Contraceptive plans: discussed and plan iud Complications: none Follow up for annual exams or sooner if indicated. Plan Detail Goals Decrease pain in PS and low back Increase ability to stand and walk Barriers Coding Level of Care Code No Charge Diagnoses care and examination of lactating mother Z39.1 09/21/17 1444 <Electronically signed by Viki Lopez MD> Date Viki Lopez MD Cosigner Signature: Date (if applicable) CC: [employer] OFFICE VISIT Observed: 08/10/2017 Status: F Source: [place] REPORT 10:35 AM [facility] [address] [place] [place] [address] OFFICE VISIT Date of Service: 08/10/17 MR#: [id number] Acct: [id number] Name: CARIN GUSTAFSON Rep #: [id number] : 1990 Provider: Viki Lopez MD Age/Sex: 27/F Location: [facility] Status: Signed Intake Vital Signs08/10/17 Height 5 ft 6 in 08/10/17 Weight: 246 lb 08/10/17 Body Mass Index (BMI) 39.6 08/10/17 Blood Pressure 135/86 Intake Visit Reasons: MASTITIS? CRACKED NIPPLES Chief Complaint: Possible Mastitis Candle Wrapper Required: No Is patient in pain?: Yes Allergies No Known Allergies Allergy (Verified 08/10/17 10:03) Medications vitamin,calcium,ejsskhgi-cndj-kkxfo acid tablet 1 tab PO QDAY 01/22/17 [History Confirmed 08/03/17] Naproxen [Naprosyn] 250 - 500 mg PO Q8H PRN PRN #30 tab 08/08/17 [Rx] Oxycodone HCl/Acetaminophen [Percocet 5-325] 1 - 2 tab PO Q4H PRN PRN 7 Days #28 tab 08/08/17 [Rx] Is last menstrual period known: No Post menopausal: No Patient : No : No PFSH Medical History PCOS (polycystic ovarian syndrome) (Acute) Family History Father Diabetes Mother Cancer skin Social History Smoking Status: Never smoker alcohol intake: never substance use type: does not use caffeine: Yes Type: carbonated beverages Number of servings: 2 seatbelt use: always additional social history: [employer] HPI MASTITIS? CRACKED NIPPLES: Details: CARIN GUSTAFSON is a 27 year old who presents for suspected mastitis. she was seen over the weekend by and having left sided redness. she has nipple pain and scabs but she is starting to get better with a shield. she deneis any fevers and the redness has resolved. Pregancy History 2 Elective abortions Hx Para 1 Spontaneous abortions Past Pregnancies Del. DatName GA/WeeksOut[facility] live birC-[id number] 4ozFemale epiduralWCH FELIPE th - fuln l term Delivery Date: 08/03/17 On 08/06/17 @ 16:58 Petra Zarate bradycardia- failed vacuum- can consider TOLAC next MANAGER ANALYT[employer] assisted Exam Const General: cooperative, healthy appearing, comfortable, no acute distress, well developed Nutritional Appearance: average body habitus Orientation: alert HENMT Head: normal to inspection, normocephalic Ears: hearing grossly normal bilaterally, external ears normal Nose: external nose normal, nares normal Face and sinus: normal facial exam Neck Neck: normal visual inspection, trachea midline, no lymphadenopathy Thyroid: thyroid normal Chest Chest palpation AND inspection: normal inspection of the chest Breast inspection: normal inspection of the breasts, normal inspection of the axillae, abnormal inspection of the breast (cracked nipples bilaterally) Breast palpation: normal palpation of the axillae, normal palpation of the breasts, no axillary lymphadenopathy Resp Effort AND Inspection: normal respiratory effort GI Inspection: normal to inspection, non-distended Palpation: soft, no hepatosplenomegaly Musc Other: gross motor intact no deficits, full bilateral strength Skin General: no rashes or lesions noted Neuro General: alert, awake, no focal motor deficits, moves all extremities Motor: muscle tone normal throughout Extrem General: normal to inspection, no pedal edema Psych Appearance: grossly normal Mental Status: mental status grossly normal Affect: normal affect Speech and Movement: speech and movement normal Assessment AND Plan Problems 1. care and examination of lactating mother Z39.1 Plan follow up, supportive measures no antibiotics unless febrile Plan Detail Goals Decrease pain in PS and low back Increase ability to stand and walk Barriers Coding Level of Care Code No Charge Diagnoses care and examination of lactating mother Z39.1 08/10/17 1035 <Electronically signed by Viki Lopez MD> Date Viki Lopez MD Cosigner Signature: Date (if applicable) CC: CBC W/DIFF, AUTOMATED Collected: 08/08/2017 Status: F Source: [place] 11:20 AM [facility] REPOSITORY TYPE CODE TESTS RESULT OUT OF RANGE REFERENCE UNITS LAB L100.1000 4.4-11.0 K/mm3 Normal WBC 7.0 LAB L100.1200 4.2-5.4 M/mm3 Low RBC 2.95 LAB L100.1300 12.0-15.0 g/dl Low HGB 8.1 LAB L100.1400 37-47 % Low HCT 25.6 LAB L100.1500 81-99 fL Normal MCV 86.8 LAB L100.1600 27.0-32.0 pg Normal MCH 27.5 LAB L100.1700 32-36 g/gl Low MCHC 31.6 LAB L100.1810 11.6-14.6 % High RDW CV 17.1 LAB L100.1820 35.1-43.9 fl High RDW SD 53.2 LAB L100.1900 150-450 K/mm3 Normal PLT 190 LAB L100.2000 6.2-12.0 fl Normal MPV 11.7 LAB L100.2100 47-70 % High NEUT% 73.5 LAB L100.2200 19-41 % Low LY% 18.1 LAB L100.2300 0-10 % Normal MONO% 5.0 LAB L100.2400 0-5 % Normal EO% 2.4 LAB L100.2500 0-1 % Normal BASO% 0.3 LAB L100.2550 0.0-0.9 % Normal IM GRAN % 0.700 Result Comment: IG% - Immature Granulocytes (promyelocytes, myelocytes and metamyelocytes) > 1% indicates that a LEFT SHIFT is Present. LAB L100.2620 2.0-7.7 X10 3/uL Normal Absolute Neut 5.1 LAB L100.2720 0.83-4.51 X10 3/ul Normal Absolute Lymph 1.26 Performed By: #### L100.0100 #### [place] [facility] [address] [place], [address] CHEST PA AND LATERAL Observed: 08/08/2017 Status: F Source: [place] 10:56 AM [facility] REPOSITORY [facility] Imaging Services [address] [place] [address] Chest PA and Lateral MR#: [id number] Acct: [id number] Name: CARIN GUSTAFSON Rep #: [id number] : 1990 F 27 From: Juanpablo Puentes DO PCP: Care Physician, No Primary Status: ADM IN Study: Chest PA and Lateral Date of Exam: 08/08/17 Exam# [id number] Ordering Dr: Viki Lopez MD STUDY: X-RAY CHEST REASON FOR EXAM: Female, 27 years old. Productive cough, bloody sputum TECHNIQUE: PA and lateral views of the chest. COMPARISON: None. FINDINGS: The lungs are clear and expanded. There is no demonstrated pleural abnormality. Normal size heart. Normal mediastinum and toribio. Normal visualized pulmonary arteries. Normal visualized aortic arch and descending thoracic aorta. Normal visualized thoracic spine. Normal visualized ribs, clavicles, and shoulders. There is no demonstrated abnormality of the visualized soft tissue structures of the upper abdomen. RAD/Chest PA and Lateral IMPRESSION: Normal x-ray examination of the chest. Electronically Signed: Juanpablo Puentes DO at 11:40 EDT Tel , Service support , CC: No Primary Care Physician; Viki Lopez MD Student Records Coordinator: Signed DISCHARGE INSTRUCTION Observed: 08/08/2017 Status: F Source: [place] 5:30 AM [facility] REPOSITORY [facility] Medical Records Department [address] [place] [address] Instructions for Home/Discharge Instructions 08/08/17 0530 MR#: [id number] Acct: [id number] Name: JANAYNYDIACARIN M Rep #: [id number] : 1990 27 From: Viki Lopez MD PCP: Care Physician, No Primary Status: ADM IN Discharge Diet: No Restrictions Discharge Activity: Return to Normal Activity May resume sexual activity in: 4-6 weeks Lifting Restrictions: 20 pounds Additional Activity Instructions:: Nothing in the vagina for 4-6 weeks. You may return to work/school in 6 weeks. Call your doctor if your incision/area has: Continuous Slow Oozing, Sudden Increased Bleeding, Increased Pain/ Swelling, Increased Redness, Foul Smelling Discharge Call your doctor if you observe: Fever of 101 or Higher, Using more than one pad per hour - for 2 hours Suture Line Care: Avoid Pulling/Pushing, Avoid Pinching/Bending Cleanse incision/area with: Keep Dressing Clean AND Dry Additional Instructions: If you experience any of the following, contact your healthcare provider. * Bleeding that soaks a pad every hour for 2 hours * Fever 100.4 or higher * Unrelieved incision or abdominal pain * Swelling, redness, discharge or bleeding from your incision or episiotomy site * Your incision begins to separate * Problems urinating (including inability to urinate or burning while urinating). * Visual changes * Severe headache * Flu-like symptoms * Pain or redness in one of both of your breasts * Pain, warmth, tenderness or swelling in your legs, especially the calf area * Frequent nausea and vomiting * Symptoms of depression or anxiety If you experience any of the following, call 911 or go to the nearest Emergency Room. * Chest pain * Problems breathing * Seizure activity * Partial or complete paralysis of a body part, slurred speech, weakness or drooping of the face, or a sudden inability to walk or hold your balance Allergies/Adverse Reactions: Allergies No Known Allergies Allergy (Verified 07/15/17 09:17) Medications to take at Discharge vitamin,calcium,ufsjxhcu-vsjq-rqwbu acid tablet 1 tab PO QDAY 01/22/17 Naproxen [Naprosyn] 250 - 500 mg PO Q8H PRN PRN #30 tab 08/08/17 Oxycodone HCl/Acetaminophen [Percocet 5-325] 1 - 2 tablet PO Q4H PRN PRN 7 Days #28 tablet 08/08/17 The following prescriptions were given: Oxycodone HCl/Acetaminophen [Percocet 5-325] 1 - 2 tablet PO Q4H PRN PRN 7 Days #28 tablet PRN Reason: Moderate-Severe pain Naproxen [Naprosyn] 250 - 500 mg PO Q8H PRN PRN #30 tab PRN Reason: MILD PAIN Follow-Up: Call to make an appointment with your doctor for an incision check in 1-2 weeks. You will also need a 6 week post- follow up appointment. Please Follow Up With: Viki Lopez MD - Call to make an appointment for an incision check in 1-2 [phone] When: You will need a post- check in 6 weeks. Primary Care Physician: Care Physician,No Primary [Primary Care Provider] - 08/08/17 0530 <Electronically signed by Viki Lopez MD> Date Viki Lopez MD CC: No Primary Care Physician DISCHARGE SUMMARY Observed: 08/08/2017 Status: F Source: [place] 5:27 AM [facility] REPOSITORY [facility] Medical Records Department [address] [place] [address] Discharge Summary 08/08/17 0525 MR#: [id number] Acct: [id number] Name: CARIN GUSTAFSON Rep #: [id number] : 1990 27 From: Viki Lopez MD PCP: Care Physician, No Primary Status: ADM IN Location: [place] [address] Discharge Date and Diagnosis - Problem List Patient Problems: Active and Suspected Problems (Last Reviewed 08/03/17 @ 08:15 by Carin Del Rosario) Post-dates (Acute) bradycardia (Acute) Failed vacuum extraction delivery (Acute) Date of Admission: 08/03/17 Date of Discharge: 08/08/17 - Primary Discharge Diagnosis Active and Suspected Problems (Last Reviewed 08/03/17 @ 08:15 by Carin Del Rosario) Post-dates (Acute) bradycardia (Acute) Failed vacuum extraction delivery (Acute) Hospital Course and Treatment Consultations 08/03/17 18:55 Consult: Anesthesia Routine Comment: Reason For Exam: labor Operations: - - LTCS Summary of Care Provided: The patient is a 27 year old F presents IOL postdates and then proceeded to dilate and developed a bradycardia and she underwent a failed vacuum delivery followed by a primary csection. she had a routine recovery with a return of bowel and bladder function, stable for dc to home on pod 4 Discharge Diet: No Restrictions Discharge Activity: Return to Normal Activity Home Medications: Medications to take at Discharge vitamin,calcium,pqeviiku-odew-wkteg acid tablet 1 tab PO QDAY 01/22/17 Primary Care Physician: Care Physician,No Primary [Primary Care Provider] - Medical Necessity - Tobacco Use Smoking Status: Never smoker Meaningful Use Info Meaningful Use Diagnoses (Choose all that apply): None applicable 08/08/17526 <Electronically signed by Viki Lopez MD> Date Viki Lopez MD Cosigner Signature (if applicable): Date CC: No Primary Care Physician; Viki Lopez MD Signed OPERATIVE REPORT Observed: 08/05/2017 Status: F Source: [place] 7:12 AM [facility] REPOSITORY [facility] Medical Records Department [address] [place] [address] Operative Report 08/05/17 0656 MR#: [id number] Acct: [id number] Name: JANAYCARIN M Rep #: [id number] : 1990 27 From: Viki Lopez MD PCP: Michelle Physician, No Primary Status: ADM IN Y Location: DP013-1 Problem List (1) Post-dates Status: Acute (2) GBS (group B Streptococcus carrier), +RV culture, currently Status: Acute Comment: pcn in labor (3) Anemia during in third trimester Status: Acute Comment: iron, cbc monthly (4) Supervision of normal Status: Acute Qualifiers: Comment: PRR EDAURDO girl jono 07/28/17 [place] (5) bradycardia Status: Acute (6) Failed vacuum extraction delivery Status: Acute Report of Operation Date of Procedure: 08/04/17 Pre-Operative Diagnosis: bradycardia, failed vacuum delivery Post-Operative Diagnosis: same Surgery/Procedure Performed:: lt stat Description of Surgical Findings:: vertex female Type of Anesthesia:: Epidural Special Medications: terbutaline Specimen's removed: vertex female Estimated Blood Loss (mL): 900 Fluids Replaced: crystalloid Description of Procedure: Patient presented for induction of labor secondary to postdates. Patient underwent Cytotec induction of labor and made change to 2 cm 80% effaced and -2 station. Patient proceeded to make dilation on her own and therefore Pitocin was not started. Patient developed mild recurrent periodic variables and resuscitative maneuvers were employed with IV fluids, oxygen, position changes, and an amnioinfusion was started. She then developed a prolonged deceleration and was transported to the OR for possible immediate . Terbutaline was given during this time. Patient was rechecked and noted to be completely dilated and +2 station. Lovelace catheter was in place. Anesthesia was present and back up was in place for an emergent if necessary. Epidural anesthesia was in place. It was felt that there was an adequate pelvis and the size was approximately 8 pounds. heart rate initially recovered for a minute to a normal baseline with marked variability but then again showed showed minimal to moderate variability but persistent bradycardia into the 70s-80s was noted pulls were made the patient was placed in the dorsal supine position with leftward tilt. Patient was prepped and draped the splash Betadine prep. Patient was checked and noted to have an adequate epidural anesthesia so anesthesia dosed her IV with medication and prepared for general anesthesia if needed. The patient was again checked and was communicated with anesthesia that they would continue giving her anesthesia and the initial incision was made and the patient checked and gave permission to proceed. Incision was carried through to the underlying layer of fascia with the scalpel. Fascia was nicked in the midline and the incision extended laterally and the peritoneum was entered digitally. The incision was stretched and a low transverse uterine incision was made with the scalpel. With aid from a hand from below the infant's head was delivered atraumatically followed by the anterior and posterior shoulders without complication the rest of the infant delivered. The cord was clamped and cut and the infant was handed off to awaiting nurse. The placenta was delivered spontaneously immediately following and was noted to be intact and have a three-vessel cord. The uterus was exteriorized cleared of all clots and debris, and the incision was closed in a double layer closure using #1 Monocryl. The uterus was returned to the maternal abdomen and gutters were cleared of all clots and debris. The ovaries and fallopian tubes were noted to be within normal limits. The peritoneum was closed with 3-0 Monocryl in a running fashion. Fascia was closed with 0 PDS in a running fashion. Subcutaneous tissue was copiously irrigated and the subcutaneous space and the skin was closed with 3-0 Monocryl. Mepilex dressing applied. Patient was taken to recovery in stable condition. Grafts/Implants Used: none - Complications none 08/05/1712 <Electronically signed by Viki Lopez MD> Date Viki Lopez MD CC: No Primary Care Physician; Viki Lopez MD Signed CBC-COMPLETE BLOOD CNT Collected: 08/05/2017 Status: F Source: [place] NO DIFF 4:25 AM [facility] REPOSITORY Order Comment: Comments: Day #1 Reason for Laboratory Test TYPE CODE TESTS RESULT OUT OF RANGE REFERENCE UNITS LAB L100.1000 4.4-11.0 K/mm3 High WBC 11.4 LAB L100.1200 4.2-5.4 M/mm3 Low RBC 3.38 LAB L100.1300 12.0-15.0 g/dl Low HGB 8.9 LAB L100.1400 37-47 % Low HCT 28.4 LAB L100.1500 81-99 fL Normal MCV 84.0 LAB L100.1600 27.0-32.0 pg Low MCH 26.3 LAB L100.1700 32-36 g/gl Low MCHC 31.3 LAB L100.1810 11.6-14.6 % High RDW CV 17.4 LAB L100.1820 35.1-43.9 fl High RDW SD 53.4 LAB L100.1900 150-450 K/mm3 Low PLT 115 Performed By: #### L100.0500, L100.4500 #### [facility] [address] [place], [address] DIFFERENTIAL COMMENT Collected: 08/05/2017 Status: F Source: [place] 4:25 AM [facility] REPOSITORY Order Comment: Comments: Day #1 Reason for Laboratory Test TYPE CODE TESTS RESULT OUT OF RANGE REFERENCE UNITS LAB L100.4500 Normal SMEAR COMMENT SCAN Result Comment: LARGE PLATELETS OBSERVED. Performed By: #### L100.0500, L100.4500 #### [facility] [address] [place], [address] HISTORY AND PHYSICAL Observed: 08/03/2017 Status: F Source: [place] EXAM 9:07 PM [facility] REPOSITORY [facility] Medical Records Department [address] [place] [address] History and Physical 08/03/172103 MR#: [id number] Acct: [id number] Name: CARIN GUSTAFSON Rep #: [id number] : 1990 27 From: Viki Lopez MD PCP: Care Physician, No Primary Status: ADM IN Location: [place] 388216-1 - Problem List (1) Post-dates Status: Acute (2) GBS (group B Streptococcus carrier), +RV culture, currently Status: Acute Comment: pcn in labor (3) Anemia during in third trimester Status: Acute Comment: iron, cbc monthly (4) Supervision of normal Status: Acute Qualifiers: Comment: PRR EDUARDO girl jono 07/28/17 [place] History Date of Admission: 08/03/17 Final EDUARDO: 07/28/17 Gestational age: 40 Weeks and 6 Days History of this : This is a 27 year-old, at 40 weeks 6 days gestational age prsents for IOL secondary to postdates Medical History: Medical History (Last Reviewed 08/03/17 @ 08:15 by Carin Del Rosario) PCOS (polycystic ovarian syndrome) E28.2 Allergies No Known Allergies Allergy (Verified 07/15/17 09:17) Home Medications: Home Medications vitamin,calcium,olqkcnvy-bpcv-rolwd acid tablet 1 tab PO QDAY 01/22/17 Smoking Status: Never smoker Alcohol: None Number of Fetus(es): 1 Heart Tracin moderate variability reactive cat I TOCO Analysis: irregular History Past Pregnancies: Past Pregnancies Delivery Name GA/Weeks Outcome Route WeiInfant GeLrayo LenAnesthesiDelivery Provider FOB Date ght [facility] Location Labs: All Active Problems (Last Reviewed 08/03/17 @ 08:15 by Carin Del Rosario) GBS (group B Streptococcus carrier), +RV culture, currently (Acute) Anemia during in third trimester (Acute) Supervision of normal (Acute) screening encounter (Resolved) Decreased movement (Resolved) Segmental and somatic dysfunction of lumbar region (Resolved) Segmental and somatic dysfunction of pelvic region (Resolved) Segmental and somatic dysfunction of sacral region (Resolved) Variable deceleration (Resolved) Mom's Labs AND Results WBC 9.1 RBC 3.77 L Hgb 10.0 L Hct 31.5 L MCV 83.6 Course Did the patient receive Yes care? Labs RPR/VDRL/Syphilis Nonreactive Rubella status Immune HbSAg Negative Date Done: 02/23/17 Current Obstetrical History Gestational Diabetes No Incompetent Cervix No Infertility Yes: had IUI but not for this , pt with PCOS IUGR No Macrosomia No Hypertension/Pre-eclampsia No Placenta Previa/Abruption No PTL/PROM No Uterine anomaly No Oligohydramnios No Polyhydramnios No Multiple gestation No Past Medical History Asthma No Diabetes No Hypertension No Heart disease No Mitral valve prolapse No Neurologic/Seizure disorder/ No Migraines Kidney disease No Liver disease No Varicosities No Clotting disorders/Hx of DVT No Thyroid Dysfunction No Other medical diseases No Psychiatric disorders No Major trauma No Abnormal PAP smear No Sleep apnea No Mammogram in the last 2 years No Social History Marital Status: Alleged father Spencer Gustafson Hx Smoking No Smoking Status Never smoker How long have you used pt denies substances (years)? Expected Delivery Method: Spontaneous Vaginal Review of Systems Constitutional: Denies: Fever, Malaise Eyes: Denies: Blurred vision, Vision Change HEENT: Denies: Head Aches, Visual Changes Cardiovascular: Denies: Chest Pain, Palpitations Respiratory: Denies: Cough, Shortness of Breath, Wheezing Gastrointestinal: Denies: Abdominal Pain, Diarrhea, Nausea, Vomiting Genitourinary: Denies: Dysuria, Hematuria Musculoskeletal: Denies: Joint Pain, Muscle pain Skin: Denies: Lesions, Rash Neurological: Denies: Blurred vision, Focal weakness, Headaches Psychiatric: Denies: Anxiety, Depression Endocrine: Denies: Heat/ Cold Intolerance Hematologic/ Lymphatic: Denies: Easy Bruising, Easy Bleeding Physical Exam General: Alert, Cooperative, No apparent distress HEENT: Atraumatic, Normocephalic. Negative for: Thyromegaly, Lymphadenopathy Cardiovascular: Regular rate Lungs: Normal air movement Abdomen: Soft, Non Tender, Gravid Neurological: Deep Tendon Reflexes 2+/4 and Symmetrical, Neuro grossly intact. 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 Negative for: Vulvar lesions Estimated gestational size: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 11:03) Medications vitamin,calcium,zhhtqpmf-vywk-hurvw acid tablet 1 tab PO QDAY 01/22/17 [History Confirmed 04/29/17] PFSH Medical History PCOS (polycystic ovarian syndrome) (Acute) Family History Father Diabetes Mother Cancer skin Social History Smoking Status: Never smoker alcohol intake: never substance use type: does not use caffeine: Yes Type: carbonated beverages Number of servings: 2 seatbelt use: always additional social history: [employer] HPI pelvic pain : Chief Complaint: Pelvic pain Visit Number: 4 Details: CARIN GUSTAFSON is a 27 year old F who presents with decreased pelvic pain. She states that on Thursday she was on her feet all day with no increased pain. On Thursday the patient did a lot of prolonged waking with no increased pain. Today Carin rates her pain a 3/10 and describes it as a dull ache that comes and goes. but is still worse on the L side. Frequent bending is the only thing that seems to cause increased pain, although Carin denies any numbness or tingling. Location: pelvic area Duration: occasional Aggravating or associated factors: frequent bending, standing Relieving factors: chiro Pain Quality: aching, dull Exam Musc General: Yes normal posture, normal gait and joint tenderness (L4, L5, bilateral PS) Thoracic/Lumbar Spine: thor and lumb spine abnorm to inspection (L short leg (.25in)), thoraco-lumbar ROM normal, Lasegue's sign positive (L>R), thoraco-lumbar spasm (slightly improved) bilaterally in the lower lumbar, paraspinal tenderness (L4, L5 (slightly improved)) Sacroiliac joints: on the left tender to palpation Sacrum: tenderness (and restriction on R) on the right Other: L>R PS tenderness. R superior PS. Office Procedures Chiropractic Treatments Procedures Manipulation: 1-2 regions (L4, LIL) Assessment AND Plan 1. Segmental and somatic dysfunction of lumbar region M99.03 Orders Orders: 2. Segmental and somatic dysfunction of pelvic region M99.05 Orders Orders: Plan Detail Additional Comments Patient is showing positive improvement. Goals Decrease pain in PS and low back Increase ability to stand and walk Barriers Follow Up 1 x week Coding Level of Care Code No Charge Diagnoses Segmental and somatic dysfunction of lumbar region M99.03 Segmental and somatic dysfunction of pelvic region M99.05 Additional Codes Procedures - Manipulation: 1-2 regions ([id number]) 05/12/17 0842 <Electronically signed by Terri Thomson D.C.> Date Terri Thomson D.C. Cosigner Signature: Date (if applicable) CC: CHIROPRACTIC REPORT Observed: 05/07/2017 Status: F Source: [place]URL[place] 4:40 PM [facility] [address] [place] [address] OFFICE VISIT Date of Service: 05/07/17 MR#: [id number] Acct: [id number] Name: CARIN GUSTAFSON Rep #: [id number] : 1990 Provider: Terri Thomson D.C. Age/Sex: 27/F Location: [facility] Status: Signed Intake Intake Visit Reasons: back pain Chief Complaint: est ob Allergies No Known Allergies Allergy (Verified 04/29/17 11:03) Medications vitamin,calcium,qxreqnpy-fqlb-qgrta acid tablet 1 tab PO QDAY 01/22/17 [History Confirmed 04/29/17] [facility] Medical History PCOS (polycystic ovarian syndrome) (Acute) Family History Father Diabetes Mother Cancer skin Social History Smoking Status: Never smoker alcohol intake: never substance use type: does not use caffeine: Yes Type: carbonated beverages Number of servings: 2 seatbelt use: always additional social history: [employer] HPI back pain : Chief Complaint: back pain Visit Number: 4 Details: CARIN GUSTAFSON is a 27 year old F who presents with decreased pelvic pain, mainly L sided. after her treatment the pain decreases for the rest of the day, but returns after prolonged standing and walking. Today she rates her pain a 4/10 and describes it as a tight and sharp ache that is constant. Bending, lifting and prolonged sitting/standing greatly increases the pain, Carin denies any numbness, or tingling the pain is staying localized to the pelvic region. Location: pelvic Duration: intermittant Aggravating or associated factors: bending, lifting and prolonged sitting/standing Relieving factors: adjustment and pool Pain Quality: aching, dull, sharp Exam Musc General: Yes normal posture, normal gait and joint tenderness (L4, L5, bilateral PS) Thoracic/Lumbar Spine: thor and lumb spine abnorm to inspection (L short leg (.25in)), thoraco-lumbar ROM normal, Lasegue's sign positive (L>R), thoraco-lumbar spasm bilaterally in the lower lumbar, paraspinal tenderness (L4, L5) Sacroiliac joints: on the left tender to palpation Sacrum: tenderness (and restriction on R) on the right Other: L>R PS tenderness. R superior PS. Office Procedures Chiropractic Treatments Procedures Manipulation: 1-2 regions (L4, L Sacrum) Assessment AND Plan Problems 1. Segmental and somatic dysfunction of lumbar region M99.03 2. Segmental and somatic dysfunction of pelvic region M99.05 Plan Continue with acute treatment plan and recommend continued swimming. Orders Orders: Plan Detail Goals Decrease pain in PS and low back Increase ability to stand and walk Barriers Follow Up 2x/wk Coding Level of Care Code No Charge Diagnoses Segmental and somatic dysfunction of lumbar region M99.03 Segmental and somatic dysfunction of pelvic region M99.05 Additional Codes Procedures - Manipulation: 1-2 regions ([id number]) 05/07/17 1640 <Electronically signed by eTrri Thomson D.C.> Date Terri Thomson D.C. Cosigner Signature: Date (if applicable) CC: CHIROPRACTIC REPORT Observed: 05/04/2017 Status: F Source: FURLONG 2:01 PM [facility] [address] [place] [address] OFFICE VISIT Date of Service: 05/04/17 MR#: [id number] Acct: [id number] Name: CARIN GUSTAFSON Rep #: [id number] : 1990 Provider: Terri Thomson D.C. Age/Sex: 27/F Location: [facility] Status: Signed Intake Vital Signs05/04/17 Height 5 ft 6 in 05/04/17 Weight: 240 lb 05/04/17 Body Mass Index (BMI) 38.7 Intake Visit Reasons: pelvic pain Chief Complaint: est ob Is patient in pain?: Yes Allergies No Known Allergies Allergy (Verified 04/29/17 11:03) Medications vitamin,calcium,rucsuokw-cjsu-xaaaz acid tablet 1 tab PO QDAY 01/22/17 [History Confirmed 04/29/17] [facility] Medical History PCOS (polycystic ovarian syndrome) (Acute) Family History Father Diabetes Mother Cancer skin Social History Smoking Status: Never smoker alcohol intake: never substance use type: does not use caffeine: Yes Type: carbonated beverages Number of servings: 2 seatbelt use: always additional social history: [employer] HPI pelvic pain : Chief Complaint: pelvic pain Visit Number: 3 Details: CARIN GUSTAFSON is a 27 year old F who presents with slightly decreased pelvic pain. Carin states that over the weekend she did a lot of walking causing increased pain, specifically on the L side. While at the hotel the patient did get in the pool which relieved all her pain and pressure in the pelvic area, this lasted for roughly 24 hours. Today the pain has returned on the L side and is described as a tight and sharp prickling sensation that is constant. Prolonged walking, bending, and lifting causes increased pain although she denies any numbness or tingling. Location: bilateral pelvic area Duration: constant to intermittant Aggravating or associated factors: bending, lifting, and prolonged walking and bending Relieving factors: chiro, pool Pain Quality: aching, dull, sharp, radiating Exam Musc General: Yes normal posture, normal gait and joint tenderness (L4, L5, bilateral PS) Thoracic/Lumbar Spine: thor and lumb spine abnorm to inspection (L short leg (.25in)), thoraco-lumbar ROM normal, Lasegue's sign positive (L>R), thoraco-lumbar spasm bilaterally in the lower lumbar, paraspinal tenderness (L4, L5) Sacroiliac joints: on the left tender to palpation Sacrum: tenderness (and restriction on R) on the right Other: L>R PS tenderness. R superior PS. Office Procedures Chiropractic Treatments Procedures Manipulation: 1-2 regions (L4, RIL, LIL) Assessment AND Plan 1. Segmental and somatic dysfunction of lumbar region M99.03 Orders Orders: 2. Segmental and somatic dysfunction of pelvic region M99.05 Orders Orders: Plan Detail Other Orders Orders: Additional Comments Provided patient with referral for aquatic PT to assist in stengthening her pelvic floor and decreasing discomfort from . Goals Decrease pain in PS and low back Increase ability to stand and walk Barriers Follow Up 2 x week Coding Level of Care Code No Charge Diagnoses Segmental and somatic dysfunction of lumbar region M99.03 Segmental and somatic dysfunction of pelvic region M99.05 Additional Codes Procedures - Manipulation: 1-2 regions ([id number]) 05/04/17 1401 <Electronically signed by Terri Thomson D.C.> Date Terri Ohara Signature: Date (if applicable) CC: [employer] OFFICE VISIT Observed: 05/04/2017 Status: F Source: [place] REPORT 10:28 AM [facility] [place] [address] [place] [address] OFFICE VISIT Date of Service: 05/04/17 MR#: [id number] Acct: [id number] Name: CARIN GUSTAFSON Rep #: [id number] : 1990 Provider: NATA Kelly Age/Sex: 27/F Location: [facility] Status: Signed with Addenda ADDENDUM by Carin Del Rosario on 05/04/17 at 1028 OFFICE PROCEDURES Office Procedure Documentation entered by Carin Del Rosario 05/04/17 10:28: Immunizations Boostrix Tdap Performing Provider: KIMBERLY Alvarado Administered by: Carin Del Rosario on 05/04/17 10:27 Dose Route Admin Location Lot Number Expiration Date [facility] Airplane Tube [employer] 0.5 mL IM Left Arm (SQ) [id number] 10/08/18 [id number] [employer] VIS Given Date VIS Publication Date 05/04/17 04/11/14 Eligibility Eligibility Date 05/04/17 1028 <Electronically signed by Carin Del Rosario > Date Carin Del Rosario cc: * Signed Intake Vital Signs05/04/17 Weight: 240 lb 05/04/17 Blood Pressure 121/79 Intake Visit Reasons: 27 WEEKS Allergies No Known Allergies Allergy (Verified 04/29/17 11:03) Medications vitamin,calcium,lpvpnbcs-vvit-uezym acid tablet 1 tab PO QDAY 01/22/17 [History Confirmed 04/29/17] Last Menstral Period: 10/21/16 PFSH PFSH Medical History PCOS (polycystic ovarian syndrome) (Acute) Family History Father Diabetes Mother Cancer skin Social History Smoking Status: Never smoker alcohol intake: never substance use type: does not use caffeine: Yes Type: carbonated beverages Number of servings: 2 seatbelt use: always additional social history: [employer] Pregancy History 1 Elective abortions Hx Para Spontaneous abortions HPI 27 WEEKS: Details: CARIN GUSTAFSON is a 27 year old who presents for routine OB visit. OB Visit EDUARDO Calculator Estimated Delivery Date 07/28/17 Based on LMP (certain) 10/21/16 Current WG 27w 6d Number 1 Expected Delivery Route/Plan Specific Issue/Plans MC given flu vaccine declined Initial Weight: Not Recorded Date Weight BP Urine PFHR FuHt Pres MCTX DilatioFetal SVisit NProvideComment rot ov n t ote r s EGA Ef Gluco faced se 01/22/1222 lb 114/76 150 12 doing wSM FACEBOO 7 6 oz ell no K 13 complai w 2d nts Visit Notes Visit Date: 05/04/17 routine OB, doing well. Denies CTX, LOF, VB MAKAYLA AlvaradoC on 05/04/17 Work in for loss of fluid last pm. None today. States did have intercourse a couple hours previous to it but was more watery. Denies CTX, VB. Good FM KIMBERLY Alvarado on 04/29/17 Work in for loss of fluid last pm. None today. States did have intercourse a couple hours previous to it but was more watery. Denies CTX, VB. Good FM MAKAYLA AlvaradoC on 04/29/17 no vb lof good fm no regualr ctx. Viki Lopez MD on 04/20/17 Visit Date: 04/29/17 Work in for loss of fluid last pm. None today. States did have intercourse a couple hours previous to it but was more watery. Denies CTX, VB. Good FM KIMBERLY Alvarado on 04/29/17 no vb lof good fm no regualr ctx. Viki Lopez MD on 04/20/17 no vb lof good fm no regualr ctx. Viki Lopez MD on 04/20/17 Visit Date: 04/20/17 no vb lof good fm no regualr ctx. Viki Lopez MD on 04/20/17 no vb cramping, co diarrhea and dehydration for several days,feeling drained and exhausted, no fevers Viki Lopez MD on 03/31/17 nov b cramping Viki Lopez MD on 03/23/17 nov b cramping Viki Lopez MD on 03/23/17 Visit Date: 03/27/17 no vb cramping, co diarrhea and dehydration for several days,feeling drained and exhausted, no fevers Viki Lopez MD on 03/31/17 nov b cramping Viki Lopez MD on 03/23/17 nov b cramping Viki Lopez MD on 03/23/17 Visit Date: 03/23/17 nov b deemping Viki Lopez MD on 03/23/17 Doing well. Has cold sx. Denies VB, LOF Fior Kelly [employer] on 02/20/17 Doing well. Has cold sx. Denies VB, LOF Fior Kelly [employer] on 02/20/17 Visit Date: 02/20/17 Doing well. Has cold sx. Denies VB, LOF Fior Kelly [employer] on 02/20/17 D Fior Kelly [employer] on 02/20/17 Visit Date: 01/22/17 doing well no complaints Viki Lopez MD on 01/25/17 ACOG First Trimester First Trimester: Discussed Diagnostics Diagnostics Labs Hct 32.1 % (37-47) L 05/04/17 Hgb 10.4 g/dl (12.0-15.0) L 05/04/17 Obstetrics Ultrasound 03/09/17 Rubella IgG Antibody 144.6 IU/mL 02/23/17 RPR NONREACTIVE (NONREACTIVE) 02/23/17 Hep Bs Antigen 02/23/17 Glucose 1 Hr 50 gm Pending 05/04/17 Miscellaneous Test 02/23/17 Blood Type A POSITIVE 12/06/16 Chlam trachomat DNA PCR Negative (Negative) 12/08/16 N.gonorrhoeae DNA (PCR) Negative (Negative) 12/08/16 Details: HIV: Urine Culture: Sequential Screen: NIPT Screen: Assessment AND Plan Problems 1. Encounter for supervision of normal first in first trimester Z34.01 PRR EDUARDO girl jono 07/28/17 [place] 2. 27 weeks gestation of Z3A.27 Plan Orders placed: tdap Reviewed of labor precautions, movement/kick counts ACOG trimester education reviewed and updated See problem list details for updated plan of care Gestational age appropriate handout given RTO: 2 weeks Orders Orders: Medications New: Plan Detail Goals Decrease pain in PS and low back Increase ability to stand and walk Barriers Coding Level of Care Code OB Routine Diagnoses Encounter for supervision of normal first in first trimester Z34.01 Normal : normal first Trimester: first trimester 27 weeks gestation of Z3A.27 05/04/17 1004 <Electronically signed by Fior BENAVIDESC> Date Fior Kelly NP-C Cosigner Signature: Date (if applicable) CC: CBC W/DIFF, AUTOMATED Collected: 05/04/2017 Status: F Source: MEGAN 9:02 AM [facility] REPOSITORY TYPE CODE TESTS RESULT OUT OF RANGE REFERENCE UNITS LAB L100.1000 4.4-11.0 K/mm3 Normal WBC 8.8 LAB L100.1200 4.2-5.4 M/mm3 Low RBC 3.68 LAB L100.1300 12.0-15.0 g/dl Low HGB 10.4 LAB L100.1400 37-47 % Low HCT 32.1 LAB L100.1500 81-99 fL Normal MCV 87.2 LAB L100.1600 27.0-32.0 pg Normal MCH 28.3 LAB L100.1700 32-36 g/gl Normal MCHC 32.4 LAB L100.1810 11.6-14.6 % High RDW CV 14.7 LAB L100.1820 35.1-43.9 fl High RDW SD 45.2 LAB L100.1900 150-450 K/mm3 Normal PLT 175 LAB L100.2000 6.2-12.0 fl High MPV 12.2 LAB L100.2100 47-70 % High NEUT% 72.4 LAB L100.2200 19-41 % Low LY% 18.4 LAB L100.2300 0-10 % Normal MONO% 7.8 LAB L100.2400 0-5 % Normal EO% 0.7 LAB L100.2500 0-1 % Normal BASO% 0.2 LAB L100.2550 0.0-0.9 % Normal IM GRAN % 0.500 Result Comment: IG% - Immature Granulocytes (promyelocytes, myelocytes and metamyelocytes) > 1% indicates that a LEFT SHIFT is Present. LAB L100.2620 2.0-7.7 X10 3/uL Normal Absolute Neut 6.4 LAB L100.2720 0.83-4.51 X10 3/ul Normal Absolute Lymph 1.62 Performed By: #### L100.0100 #### [facility] [address] [place], [place], [id number] GLUCOSE CHALLENGE GEST Collected: 05/04/2017 Status: F Source: MEGAN 1H 50G 9:02 AM [facility] REPOSITORY TYPE CODE TESTS RESULT OUT OF RANGE REFERENCE UNITS LAB L501.0250 70-140 mg/dL Normal GLU GEST 93 50g 1H Performed By: #### L501.0250 #### [facility] [address] [place], [address] CHIROPRACTIC REPORT Observed: 04/30/2017 Status: F Source: FURLONG 11:05 AM [facility] REPOSITORY [facility] [address] [place] [address] [id number] OFFICE VISIT Date of Service: 04/30/17 MR#: [id number] Acct: [id number] Name: CARIN GUSTAFSON Rep #: [id number] : 1990 Provider: Terri Thomson D.C. Age/Sex: 27/F Location: [facility] Status: Signed Intake Vital Signs04/30/17 Height 5 ft 6 in 04/30/17 Weight: 239 lb 8 oz 04/30/17 Body Mass Index (BMI) 38.6 Intake Visit Reasons: pelvic pain Chief Complaint: est ob Is patient in pain?: Yes Allergies No Known Allergies Allergy (Verified 04/29/17 11:03) Medications vitamin,calcium,odbhfxss-kcis-breto acid tablet 1 tab PO QDAY 01/22/17 [History Confirmed 04/29/17] [facility] Medical History PCOS (polycystic ovarian syndrome) (Acute) Family History Father Diabetes Mother Cancer skin Social History Smoking Status: Never smoker alcohol intake: never substance use type: does not use caffeine: Yes Type: carbonated beverages Number of servings: 2 seatbelt use: always additional social history: [employer] HPI pelvic pain : Chief Complaint: bilateral pelvic pain Visit Number: 2 Details: CARIN GUSTAFSON is a 27 year old F who presents with bilateral pelvic pain. She states that after her treatment the pain instantly subsided, although by the evening her pain did return. Today the patient rates her pain a 5/10 and describes it as a sharp weakness the radiates on both sided if the pelvis, prolonged walking, bending, and walking on uneven ground all increase the patients pain , she denies any numbness or tingling. Onset: 04/07/17 Location: bilateral pelvis Duration: constant Aggravating or associated factors: bending, walking on uneven ground and prolonged walking Relieving factors: adjustment Pain Quality: aching, dull, cramping, sharp Exam Musc General: Yes normal posture, normal gait and joint tenderness (L4, L5, bilateral PS) Thoracic/Lumbar Spine: thor and lumb spine abnorm to inspection (L short leg (.25in)), thoraco-lumbar ROM normal, Lasegue's sign positive (L>R), thoraco-lumbar spasm bilaterally in the lower lumbar, paraspinal tenderness (L4, L5) Sacroiliac joints: on the left tender to palpation Sacrum: tenderness (and restriction on R) on the right Other: L>R PS tenderness. R superior PS. Office Procedures Chiropractic Treatments Procedures Manipulation: 1-2 regions (L4, bilateral PS) Assessment AND Plan 1. Segmental and somatic dysfunction of pelvic region M99.05 Orders Orders: 2. Segmental and somatic dysfunction of lumbar region M99.03 Plan Continue acute care treatment plan. Plan Detail Goals Decrease pain in PS and low back Increase ability to stand and walk Barriers Follow Up 2 x week Coding Level of Care Code No Charge Diagnoses Segmental and somatic dysfunction of pelvic region M99.05 Segmental and somatic dysfunction of lumbar region M99.03 Additional Codes Procedures - Manipulation: 1-2 regions ([id number]) 04/30/17 1105 <Electronically signed by Terri Thomson D.C.> Date Terri Thomson D.C. Cosigner Signature: Date (if applicable) CC: [employer] OFFICE VISIT Observed: 04/29/2017 Status: F Source: [place] REPORT 11:54 AM [facility] [address] [place] [address] OFFICE VISIT Date of Service: 04/29/17 MR#: [id number] Acct: [id number] Name: JANAYCARIN PEDRO LUIS Rep #: [id number] : 1990 Provider: NATA Kelly Age/Sex: 27/F Location: [facility] Status: Signed Intake Vital Signs04/29/17 Height 5 ft 6 in 04/29/17 Weight: 239 lb 8 oz 04/29/17 Body Mass Index (BMI) 38.6 04/29/17 Blood Pressure 108/77 Intake Visit Reasons: R/O SROM Chief Complaint: est ob Candle Wrapper Required: No Is patient in pain?: No Allergies No Known Allergies Allergy (Verified 04/29/17 11:03) Medications vitamin,calcium,vmcsqwef-qvth-qyfed acid tablet 1 tab PO QDAY 01/22/17 [History Confirmed 04/29/17] Last Menstral Period: 10/21/16 Zika: Zika virus screening: Negative : No PFSH PFSH Medical History PCOS (polycystic ovarian syndrome) (Acute) Family History Father Diabetes Mother Cancer skin Social History Smoking Status: Never smoker alcohol intake: never substance use type: does not use caffeine: Yes Type: carbonated beverages Number of servings: 2 seatbelt use: always additional social history: [employer] Pregancy History 1 Elective abortions Hx Para Spontaneous abortions HPI R/O SROM: Details: CARIN GUSTAFSON is a 27 year old who presents for routine OB visit. OB Visit EDUARDO Calculator Estimated Delivery Date 07/28/17 Based on LMP (certain) 10/21/16 Current WG 27w 1d Number 1 Expected Delivery Route/Plan Specific Issue/Plans MC given flu vaccine declined Initial Weight: Not Recorded Date Weight BP Urine PrFHR FuHt Pres MoCTX DilationFetal StVisit NoProviderComments E ot v te GA G Effac lucose ed Visit Notes Visit Date: 04/29/17 Work in for loss of fluid last pm. None today. States did have intercourse a couple hours previous to it but was more watery. Denies CTX, VB. Good FM KIMBERLY Alvarado on 04/29/17 no vb lof good fm no regualr ctx. Viki Lopez MD on 04/20/17 no vb lof good fm no regualr ctx. Viki Lopez MD on 04/20/17 Visit Date: 04/20/17 no vb lof good fm no regualr ctx. Viki Lopez MD on 04/20/17 no vb cramping, co diarrhea and dehydration for several days,feeling drained and exhausted, no fevers Viki Lopez MD on 03/31/17 nov b cramping Viki Lopez MD on 03/23/17 nov b cramping Viki Lopez MD on 03/23/17 Visit Date: 03/27/17 no vb cramping, co diarrhea and dehydration for several days,feeling drained and exhausted, no fevers Viki Lopez MD on 03/31/17 nov b eling Viki Lopez MD on 03/23/17 nov b eling Viki Lopez MD on 03/23/17 Visit Date: 03/23/17 nov b eling Viki Lopez MD on 03/23/17 Doing well. Has cold sx. Denies VB, LOF Fior Kelly, INTELLECTUAL PROPERTY COUNSEL-C on 02/20/17 Doing well. Has cold sx. Denies VB, LOF Fiorandrey Kelly, INTELLECTUAL PROPERTY COUNSEL-C on 02/20/17 Visit Date: 02/20/17 Doing well. Has cold sx. Denies VB, LOF Fior Kelly, INTELLECTUAL PROPERTY COUNSEL-C on 02/20/17 D Fior Kelly, INTELLECTUAL PROPERTY COUNSEL-C on 02/20/17 Visit Date: 01/22/17 doing well no complaints Viki Lopez MD on 01/25/17 ACOG First Trimester First Trimester: Discussed Diagnostics Diagnostics Labs Hct 34.0 % (37-47) L 02/23/17 Hgb 11.6 g/dl (12.0-15.0) L 02/23/17 Obstetrics Ultrasound 03/09/17 Rubella IgG Antibody 144.6 IU/mL 02/23/17 RPR NONREACTIVE (NONREACTIVE) 02/23/17 Hep Bs Antigen 02/23/17 Chlam trachomat DNA PCR Negative (Negative) 12/08/16 N.gonorrhoeae DNA (PCR) Negative (Negative) 12/08/16 Glucose 1 Hr 50 gm 103 mg/dL (70-140) 01/19/17 Miscellaneous Test 02/23/17 Details: HIV: Urine Culture: Sequential Screen: NIPT Screen: Results [id number] Office Urine Glucose Negative Last Edit by Carin Del Rosario on 04/29/17 11:06 Office Urine Protein Positive Last Edit by Carin Del Rosario on 04/29/17 11:06 trace Assessment AND Plan Problems 1. Encounter for supervision of normal first in first trimester Z34.01 PRR EDUARDO girl jono 07/28/17 [place] 2. Vaginal discharge during in second trimester O26.892; N89.8 Plan ROM plus: negative. Patient notified. PTL reviewed RTO routine OB appt. Orders Orders: Plan Detail Goals Decrease pain in PS and low back Increase ability to stand and walk Barriers Coding Level of Care Code OB Routine Diagnoses Encounter for supervision of normal first in first trimester Z34.01 Normal : normal first Trimester: first trimester Vaginal discharge during in second trimester O26.892; N89.8 Trimester: second trimester 04/29/17 1154 <Electronically signed by Fior HARRIS> Date Fior HARRIS Cosigner Signature: Date (if applicable) CC: (ROM) RUPTURE OF Collected: 04/29/2017 Status: F Source: [facility] 11:12 AM [facility] REPOSITORY TYPE CODE TESTS RESULT OUT OF RANGE REFERENCE UNITS LAB L205.1310 Negative Normal ROM Negative Result Comment: Amniotic fluid not present indicates No Rupture of Membranes at time of specimen collection. Performed By: #### L205.1000 #### [facility] [address] [place], [place], [address] CHIROPRACTIC REPORT Observed: 04/28/2017 Status: F Source: [place] 9:43 AM [facility] REPOSITORY [facility] [place] [address] OFFICE VISIT Date of Service: 04/28/17 MR#: [id number] Acct: [id number] Name: CARIN GUSTAFSON Rep #: [id number] : 1990 Provider: Terri Thomson D.C. Age/Sex: 27/F Location: [facility] Status: Signed Intake Vital Signs04/28/17 Height 5 ft 6 in 04/28/17 Weight: 235 lb 04/28/17 Body Mass Index (BMI) 37.9 Intake Visit Reasons: pelvic pain Chief Complaint: est ob Is patient in pain?: Yes Allergies No Known Allergies Allergy (Verified 04/20/17 09:29) Medications vitamin,calcium,mirvhbmj-vtbx-dlypy acid tablet 1 tab PO QDAY 01/22/17 [History Confirmed 04/20/17] PFS Medical History PCOS (polycystic ovarian syndrome) (Acute) Family History Father Diabetes Mother Cancer skin Social History Smoking Status: Never smoker alcohol intake: never substance use type: does not use caffeine: Yes Type: carbonated beverages Number of servings: 2 seatbelt use: always additional social history: [place] HPI pelvic pain : Chief Complaint: pubic symphysis pain/LBP Visit Number: 1 Referral source: Details: CARIN GUSTAFSON is a 27 year old F who presents with bilateral pubic symphysis pain. She states that her OBGYN diagnosed her with SPD, the pain has been present for 3 weeks. Carin describes the pain as a sharp breaking sensation , standing on uneven daniel and walking up stairs increases the pain. At its worst the patient rates her pain a 8/10, currently her pain is a 3/10. When her pain is at its worst she does have her push on her hips which does decrease the pain, along with laying down. The patient denies any numbness, tingling,radiculopathy, or burning although she does occasionally have a dull ache in the center of the low back. Onset: 04/07/17 Location: pelvis/PS Duration: constant Aggravating or associated factors: uneven ground, prolonged standing, walking up stairs Relieving factors: pushing on the hips, laying flat Pain Quality: sharp, dull Current Sensation: snapping/popping Exam Musc General: Yes normal posture, normal gait and joint tenderness (L4, L5, bilateral PS) Thoracic/Lumbar Spine: thor and lumb spine abnorm to inspection (L short leg (.25in)), thoraco-lumbar ROM normal, Lasegue's sign positive (L>R), thoraco-lumbar spasm bilaterally in the lower lumbar, paraspinal tenderness (L4, L5) Sacroiliac joints: on the left tender to palpation Sacrum: tenderness (and restriction on R) on the right Other: L>R PS tenderness. R superior PS. Neuro General: alert, awake, oriented x3, normal light touch, pain and propioception Motor: strength abnormal (L hip flexor) Sensory Exam: no sensory deficits noted Ortho Test CERVICAL THORACIC LUMBAR Kemps: Negative Valsalvas: Negative SLR: Left (pain in L hip flexor) Iliac Compression: Left Lumbar Series: Fabere: pos, L>R Office Procedures Chiropractic Treatments Procedures Manipulation: 3-4 regions (L4, R sacrum, LIL) Assessment AND Plan 1. Segmental and somatic dysfunction of pelvic region M99.05 Orders Orders: 2. Segmental and somatic dysfunction of lumbar region M99.03 Orders Orders: 3. Segmental and somatic dysfunction of sacral region M99.04 Plan Detail Additional Comments Begin acute care treatment plan. Utilizing combo of Larios and Pearce techniques with psoas stretching. Goals Decrease pain in PS and low back Increase ability to stand and walk Barriers Follow Up 2-3x/wk Coding Level of Care Code Off vis,new,level 3 Diagnoses Segmental and somatic dysfunction of pelvic region M99.05 Segmental and somatic dysfunction of lumbar region M99.03 Segmental and somatic dysfunction of sacral region M99.04 Additional Codes Procedures - Manipulation: 3-4 regions (24034) 04/28/17 0943 <Electronically signed by Terri Thomson D.C.> Date Terri Thomson D.C. Cosignshahana Signature: Date (if applicable) CC: [employer] OFFICE VISIT Observed: 04/20/2017 Status: F Source: [place] RE[place] 10:03 AM [facility] [place] [address] [place] [address] OFFICE VISIT Date of Service: 04/20/17 MR#: [id number] Acct: [id number] Name: CARIN GUSTAFSON Rep #: [id number] : 1990 Provider: Viki Lopez MD Age/Sex: 27/F Location: [facility] Status: Signed Intake Vital Signs04/20/17 Body Mass Index (BMI) 37.5 04/20/17 Blood Pressure 115/71 04/20/17 Height 5 ft 6 in 04/20/17 Weight: 235 lb 04/20/17 Body Mass Index (BMI) 37.9 04/20/17 Blood Pressure 132/77 Intake Visit Reasons: 26 WEEKS Chief Complaint: est ob Candle Wrapper Required: No Is patient in pain?: No Allergies No Known Allergies Allergy (Verified 04/20/17 09:29) Medications vitamin,calcium,fihyblej-sbcb-vpkpd acid tablet 1 tab PO QDAY 01/22/17 [History Confirmed 04/20/17] Last Menstral Period: 10/21/16 Zika: Zika virus screening: Negative : No PFSH PFSH Medical History PCOS (polycystic ovarian syndrome) (Acute) Family History Father Diabetes Mother Cancer skin Social History Smoking Status: Never smoker alcohol intake: never substance use type: does not use caffeine: Yes Type: carbonated beverages Number of servings: 2 seatbelt use: always additional social history: [place] Pregancy History 1 Elective abortions Hx Para Spontaneous abortions HPI 26 WEEKS: Details: CARIN GUSTAFSON is a 27 year old who presents for routine OB visit. OB Visit EDUARDO Calculator Estimated Delivery Date 07/28/17 Based on LMP (certain) 10/21/16 Current WG 25w 6d Number 1 Expected Delivery Route/Plan Specific Issue/Plans MC given flu vaccine declined Initial Weight: Not Recorded Date Weight BP Urine PrFHR FuHt Pres MoCTX DilationFetal StVisit NoProviderComments E ot v te GA G Effac lucose ed Visit Notes Visit Date: 04/20/17 no vb lof good fm no regualr ctx. Viki Lopez MD on 04/20/17 no vb cramping, co diarrhea and dehydration for several days,feeling drained and exhausted, no fevers Viki Lopez MD on 03/31/17Dec b alvarez Lopez MD on 03/23/17 nov b alvarez Lopez MD on 03/23/17 Visit Date: 03/27/17 no vb cramping, co diarrhea and dehydration for several days,feeling drained and exhausted, no fevers Viki Lopez MD on 03/31/17 nov b alvarez Lopez MD on 03/23/17 nov b alvarez Lopez MD on 03/23/17 Visit Date: 03/23/17 nov b alvarez Lopez MD on 03/23/17 Doing well. Has cold sx. Denies VBJENNIFERF Fior Kelly INTELLECTUAL PROPERTY COUNSEL-C on 02/20/17 Doing well. Has cold sx. Denies VBJENNIFERF Fior Kelly INTELLECTUAL PROPERTY COUNSEL-C on 02/20/17 Visit Date: 02/20/17 Doing well. Has cold sx. Denies VB, JENNIFERF Fior Kelly INTELLECTUAL PROPERTY COUNSEL-C on 02/20/17 D Fior Kelly NP-C on 02/20/17 Visit Date: 01/22/17 doing well no complaints Viki Lopez MD on 01/25/17 ACOG First Trimester First Trimester: Discussed Diagnostics Diagnostics Labs Blood Type A POSITIVE 12/06/16 Hct 34.0 % (37-47) L 02/23/17 Hgb 11.6 g/dl (12.0-15.0) L 02/23/17 Obstetrics Ultrasound 03/09/17 Rubella IgG Antibody 144.6 IU/mL 02/23/17 RPR NONREACTIVE (NONREACTIVE) 02/23/17 Hep Bs Antigen 02/23/17 Chlam trachomat DNA PCR Negative (Negative) 12/08/16 N.gonorrhoeae DNA (PCR) Negative (Negative) 12/08/16 Glucose 1 Hr 50 gm 103 mg/dL (70-140) 01/19/17 Miscellaneous Test 02/23/17 Details: HIV:negative hep b negative cf screening negative Urine Culture: negative Sequential Screen: NIPT Screen: Results [id number] Office Urine Glucose Negative Last Edit by Carin Del Rosario on 04/20/17 9:30 am Office Urine Protein Negative Last Edit by Carin Del Rosario on 04/20/17 9:30 am Assessment AND Plan Problems 1. Encounter for supervision of normal first in first trimester Z34.01 PRR EDUARDO girl jono 07/28/17 [place] 2. 25 weeks gestation of Z3A.25 Plan Orders placed: cbc glucola ordered ACOG trimester education reviewed and updated. see problem list details for updated plan management information. [place] appropriate handout given. Orders Orders: Coding Level of Care Code OB Routine Diagnoses Encounter for supervision of normal first in first trimester Z34.01 25 weeks gestation of Z3A.25 04/20/17 1003 <Electronically signed by Viki Lopez MD> Date Viki Lopez MD Cosign Signature: Date (if applicable) CC: [employer] OFFICE VISIT Observed: 03/31/2017 Status: F Source: [place] RE[place] 11:02 PM [facility] [address] [place] [address] OFFICE VISIT Date of Service: 03/27/17 MR#: [id number] Acct: [id number] Name: CARIN GUSTAFSON Rep #: [id number] : 1990 Provider: Viki Lopez MD Age/Sex: 27/F Location: [facility] Status: Signed Intake Vital Signs03/27/17 Body Mass Index (BMI) 37.5 Intake Visit Reasons: (OB) Chief Complaint: est ob Candle Wrapper Required: No Is patient in pain?: No Allergies No Known Allergies Allergy (Verified 03/23/17 09:57) Medications vitamin,calcium,mywtjlqt-jbfb-erpli acid tablet 1 tab PO QDAY 01/22/17 [History Confirmed 03/27/17] Last Menstral Period: 10/21/16 Zika: Zika virus screening: Negative : No PFSH PFSH Medical History PCOS (polycystic ovarian syndrome) (Acute) Family History Father Diabetes Mother Cancer skin Social History Smoking Status: Never smoker alcohol intake: never substance use type: does not use caffeine: Yes Type: carbonated beverages Number of servings: 2 seatbelt use: always additional social history: [place] Pregancy History 1 Elective abortions Hx Para Spontaneous abortions HPI (OB): Details: CARIN GUSTAFSON is a 27 year old who presents for routine OB visit. OB Visit EDUARDO Calculator Estimated Delivery Date 07/28/17 Based on LMP (certain) 10/21/16 Current WG 23w 0d Number 1 Expected Delivery Route/Plan Specific Issue/Plans MC given flu vaccine declined Initial Weight: Not Recorded Date Weight BP Urine PrFHR FuHt Pres MoCTX DilationFetal StVisit NoProviderComments E ot v te GA G Effac lucose ed Visit Notes Visit Date: 03/27/17 no vb cramping, co diarrhea and dehydration for several days,feeling drained and exhausted, no fevers Viki Lopez MD on 03/31/17 nov b cramping Viki Lopez MD on 03/23/17 nov b cramping Viki Lopez MD on 03/23/17 Visit Date: 03/23/17 nov b cramping Viki Lopez MD on 03/23/17 Doing well. Has cold sx. Denies VBJENNIFERF MAKAYLA AlvaradoC on 02/20/17 Doing well. Has cold sx. Denies VB, JENNIFERF KIMBERLY Alvarado on 02/20/17 Visit Date: 02/20/17 Doing well. Has cold sx. Denies VB, LOF MAKAYLA AlvaradoC on 02/20/17 D KIMBERLY Alvarado on 02/20/17 Visit Date: 01/22/17 doing well no complaints Viki Lopez MD on 01/25/17 Assessment AND Plan Problems 1. Encounter for supervision of normal first in first trimester Z34.01 EDUARDO girl jono 07/28/17 [place] 2. Acute diarrhea R19.7 Plan recommend ivfs- to infusion suite Coding Level of Care Code OB Routine Diagnoses Encounter for supervision of normal first in first trimester Z34.01 Normal : normal first Trimester: first trimester Acute diarrhea R19.7 03/31/17 2302 <Electronically signed by Viki Lopez MD> Date Viki Lopez MD Cosigner Signature: Date (if applicable) CC: [employer] OFFICE VISIT Observed: 03/23/2017 Status: F Source: [place] 10:04 AM [facility] [address] [place] [address] OFFICE VISIT Date of Service: 03/23/17 MR#: [id number] Acct: [id number] Name: CARIN GUSTAFSON Rep #: [id number] : 1990 Provider: Viki Lopez MD Age/Sex: 27/F Location: [facility] Status: Signed Intake Vital Signs03/23/17 Height 5 ft 6 in 03/23/17 Weight: 233 lb 03/23/17 Body Mass Index (BMI) 37.5 03/23/17 Blood Pressure 115/71 Intake Visit Reasons: 1 MO FU Chief Complaint: est ob Candle Wrapper Required: No Is patient in pain?: No Allergies No Known Allergies Allergy (Verified 03/23/17 09:57) Medications vitamin,calcium,rymmwkom-kngv-rnmse acid tablet 1 tab PO QDAY 01/22/17 [History Confirmed 03/23/17] azithromycin 250 mg tablet 250 mg PO .COMPLEX #6 tab 02/20/17 [Rx Confirmed 03/23/17] Last Menstral Period: 10/21/16 Zika: Zika virus screening: Negative : No PFSH PFSH Medical History PCOS (polycystic ovarian syndrome) (Acute) Family History Father Diabetes Mother Cancer skin Social History Smoking Status: Never smoker alcohol intake: never substance use type: does not use caffeine: Yes Type: carbonated beverages Number of servings: 2 seatbelt use: always additional social history: [place] Pregancy History 1 Elective abortions Hx Para Spontaneous abortions HPI 1 MO FU: Details: CARIN GUSTAFSON is a 27 year old who presents for routine OB visit. OB Visit EDUARDO Calculator Estimated Delivery Date 07/28/17 Based on LMP (certain) 10/21/16 Current WG 21w 6d Number 1 Expected Delivery Route/Plan Specific Issue/Plans MC given flu vaccine declined Initial Weight: Not Recorded Date Weight BP Urine PFHR FuHt Pres MCTX DilatioFetal SVisit NProvideComment rot ov n t ote r s EGA Ef Gluco faced se 01/22/1222 lb 114/76 150 12 doing wSM FACEBOO 7 6 oz ell no K 13 complai w 2d nts Visit Notes Visit Date: 03/23/17 nov b cramping Viki Lopez MD on 03/23/17 Doing well. Has cold sx. Denies VB, JENNIFERF Fior Kelly NP-C on 02/20/17 Doing well. Has cold sx. Denies VB, JENNIFERF Fior Kelly NP-C on 02/20/17 Visit Date: 02/20/17 Doing well. Has cold sx. Denies VB, DUTCH Kelly NP-C on 02/20/17 D Fior Kelly NP-Tripp on 02/20/17 Visit Date: 01/22/17 doing well no complaints Viki Lopez MD on 01/25/17 Assessment AND Plan Problems 1. Encounter for supervision of normal first in first trimester Z34.01 EDUARDO girl jono 07/28/17 [place] 2. 21 weeks gestation of Z3A.21 Plan Orders placed: none ACOG trimester education reviewed and updated. see problem list details for updated plan management information. [place] appropriate handout given. Coding Level of Care Code OB Routine Diagnoses Encounter for supervision of normal first in first trimester Z34.01 Normal : normal first Trimester: first trimester 21 weeks gestation of Z3A.21 03/23/17 1004 <Electronically signed by Viki Lopez MD> Date Viki Lopez MD Cosigner Signature: Date (if applicable) CC: ALLERGIES ALLERGIES DATE TYPE / CODE NAME / CODE REACTION SEVERITY SOURCE 09/21/2017 Drug No Known Unknown [facility] Allergy/416 Allergies/G07514 Hospital 864995(SNOM 0388(RXNORM) Repository ED CT) NG/[id number] NO KNOWN [facility] 6(SNOMED ALLERGIES [facility]) Repository Drug NO KNOWN [facility] Class/16363 ALLERGIES [facility] 1003(SNOMED Repository CT) ENCOUNTERS ENCOUNTERS ADMIT/DISCHARGE ACCOUNT NUMBER ADMITTING ENCOUNTER LOCATION SOURCE CLASS 02/03/2018 [id number] [facility] ding:LAB.FUT Repository URE 12/17/2017/12/18/19 [id number] Ambulatory [address] Other [place] Repository 12/17/2017/12/18/19 [id number] Ambulatory [address] MEDICAL Repository CENTERBuildi ng:AKGUB 12/10/2017 [id number] Ambulatory [facility] MEDICAL Repository CENTERBuildi ng:AKGUB 11/25/2017/11/26/19 [id number] Ambulatory [address] Main [place] Repository 09/28/2017/09/29/19 [id number] Ambulatory [address] ding:WPOUT Repository 09/21/2017/09/22/19 [id number] Ambulatory BMSBuilding: [place] [address] BMS.[facility] Repository 08/27/2017/08/28/19 [id number] Ambulatory [place] [address] ding:WPOUT Repository 08/18/2017 [id number] Ambulatory BMSBuilding: [place] BMS.[facility] Repository 08/11/2017/08/12/19 [id number] Ambulatory [place] [address] ding:WPOUT Repository 08/10/2017/08/11/19 [id number] Ambulatory BMSBuilding: [place] BMS.[facility] Repository 08/09/2017/08/10/19 [id number] Ambulatory [place] [address] ding:WPOUT Repository 08/03/2017/08/09/19 [id number] John, Inpatient [place] [facility] ding:WPRoom: Repository [id number]: 1 08/03/2017 [id number] John, Ambulatory BMSBuilding: [place] Viki BMS..[facility] Repository 08/03/2017 [id number] John, Ambulatory BMSBuilding: [place] Viki BMS..[facility] Repository 08/03/2017 [id number] John, Ambulatory BMSBuilding: [place] BMS.CF.[facility] Repository 08/03/2017 [id number] John, Ambulatory BMSBuilding: [place] Viki BMS..[facility] Repository 08/03/2017 [id number] John, Ambulatory BMSBuilding: [place] BMS..[facility] Repository 08/03/2017/08/04/19 [id number] Ambulatory BMSBuilding: [place] BMS.[facility] Repository 07/28/2017/07/29/19 [id number] Ambulatory BMSBuilding: [place] 18 BMS.[facility] Repository 07/28/2017/07/29/19 [id number] Ambulatory BMSBuilding: [place] 18 BMS.[facility] Repository 07/21/2017/07/22/19 [id number] Ambulatory BMSBuilding: [place] BMS.[facility] Repository 07/21/2017/07/22/19 [id number] Ambulatory BMSBuilding: [place] BMS.[facility] Repository 07/15/2017 [id number] Ambulatory BMSBuilding: [place] BMS.[facility] Repository 07/15/2017/07/16/19 [id number] Ambulatory [address] ding:WPOUT Repository 07/15/2017 [id number] Ambulatory BMSBuilding: [place] BMS.CF.[facility] Repository 07/15/2017/07/16/19 [id number] Ambulatory BMSBuilding: [place] BMS.[facility] Repository 07/09/2017/07/10/19 [id number] Ambulatory BMSBuilding: [place] BMS.[facility] Repository 07/07/2017/07/08/19 [id number] Ambulatory BMSBuilding: [place] BMS.[facility] Repository 06/30/[id number] [facility] ding:LABSPEC Repository 06/30/2017/07/01/19 [id number] Ambulatory BMSBuilding: [place] BMS.[facility] Repository 06/30/2017 [id number] Ambulatory BMSBuilding: [place] BMS.[facility] Repository 06/30/2017/07/01/19 [id number] Ambulatory BMSBuilding: [place] BMS.[facility] Repository 06/23/2017 [id number] Ambulatory BMSBuilding: [place] BMS.[facility] Repository 06/15/[id number] [facility] ding:POLAB3 Repository 06/15/2017/06/16/19 [id number] Ambulatory BMSBuilding: [place] BMS.[facility] Repository 06/08/2017/06/09/19 [id number] Ambulatory BMSBuilding: [place] BMS.[facility] Repository 06/01/2017 [id number] Ambulatory BMSBuilding: [place] BMS.[facility] Repository 06/01/2017/06/02/19 [id number] Ambulatory BMSBuilding: [place] BMS.[facility] Repository 05/25/2017/05/26/19 [id number] Ambulatory BMSBuilding: [place] 18 BMS.[facility] Repository 05/18/2017/05/19/19 [id number] Ambulatory BMSBuilding: [place] 18 BMS.[facility] Repository 05/18/2017/05/19/19 [id number] Ambulatory BMSBuilding: [place] BMS.[facility] Repository 05/12/2017/05/13/19 [id number] Ambulatory BMSBuilding: [place] 18 BMS.[facility] Repository 05/11/2017/05/12/19 [id number] Ambulatory BMSBuilding: [place] BMS.[facility] Repository 05/07/2017/05/08/19 [id number] Ambulatory BMSBuilding: [place] BMS.[facility] Repository 05/04/2017/05/05/19 [id number] Ambulatory BMSBuilding: [place] BMS.[facility] Repository 05/04/2017/05/05/19 [id number] Ambulatory BMSBuilding: [place] BMS.[facility] Repository 05/04/[id number] [facility] ding:LAB Repository 04/30/2017/05/01/19 [id number] Ambulatory BMSBuilding: [place] BMS.[facility] Repository 04/29/[id number] [facility] ding:LABSPEC Repository 04/29/2017/04/30/19 [id number] Ambulatory BMSBuilding: [place] 18 BMS.[facility] Repository 04/28/2017/04/29/19 [id number] Ambulatory BMSBuilding: [place] 18 BMS.[facility] Repository 04/20/2017/04/21/19 [id number] Ambulatory BMSBuilding: [place] 18 BMS.[facility] Repository 04/06/2017 [id number] [facility] ding:MASS Repository 03/27/[id number] [facility] ding:MEDOUTP Repository 03/27/2017/03/27/19 [id number] Ambulatory BMSBuilding: [place] 18 [facility] Repository 03/23/2017/03/23/19 [id number] Ambulatory BMSBuilding: [place] 18 BMS[facility] Repository PAYERS PAYERS ENCOUNTER GUARANTOR PAYER SUBSCRIBER SOURCE 02/03/2018 SPENCER GUSTAFSON218 Primary SPENCER HAYDOB: Megan MARSHALL, Insurance:[facility] [id number] [place] [address]Qxv: CARE [address] [place] [address] Number: Repository () [id number] Date:6578-36-85RH [address]TYSKXYH, [place] [address]GF: 02/03/2018 Secondary NOT GIVENUNK [place] Insurance:SELF PAY [facility] Number: Effective Repository Date:2018-01-28 12/17/2017 CARIN Cardona Primary Insurance:[facility] SPENCER HAYDOB: [employer] General HAYDOB[facility] [id number] Number: Repository SHARON BULLSAN ANTONIO, [id number] [place] [address]Kqo: Date: () 12/10/2017 CARIN Cardona Primary Insurance:[facility] SPENCER HAYDOB: Brady General HAYDOB: [facility] [id number] [facility] Number: Repository SHARON BULLSAN ANTONIO, [id number] [place] [address]Zvw: Date: () 09/28/2017 SPENCERCATRACHO GUSTAFSON218 Primary SPENCER HAYDOB: [facility], Insurance:[facility] [id number] [place] [address]Quq: [address] Number: Repository () [id number] Date:5257-35-38GZ [address]RRPYMSN, [place] [address]KK: 09/28/2017 Secondary NOT GIVENUNK [place] Insurance:SELF PAY [facility] Number: Effective Repository Date:2017-09-28 09/21/2017 SPENCERCATRACHO GUSTAFSON218 Primary SPENCER HAYDOB: Megan [facility], Insurance:UNITED [employer] [id number] [facility] [place] [address]Zdu: CARE [address] [place] [address] Number: Repository () [id number] Date:6273-26-76BV [facility] 060436ZLZPWCJ, [place] [address]NL: 09/21/2017 Secondary NOT GIVENUNK [place] Insurance:SELF PAY [facility] Number: Effective Repository Date:2017-09-21 08/27/2017 SPENCERCATRACHO MICHEL8 Primary SPENCER HAYDOB: Megan BULLSAN ANTONIO, Insurance:[employer] [id number] [facility] [address]Wys: CARE [address] [place] [address] Number: Repository () [id number] Date:5013-03-46FE [address]JEHSLFW, [place] [address]MP: 08/27/2017 Secondary NOT GIVENUNK [place] Insurance:SELF PAY [facility] Number: Effective Repository Date:2017-08-27 08/18/2017 SPENCER MICHEL8 Primary SPENCER HAYDOB: Megan MARSHALL, Insurance:[employer] [id number] [facility] [address]Qcw: CARE [address] [place] [address] Number: Repository () [id number] Date:3973-99-62BR [address]LIHKPDR, [place] [address]EN: 08/18/2017 Secondary NOT GIVENUNK [place] Insurance:SELF PAY [facility] Number: Effective Repository Date:2017-08-05 08/11/2017 SPENCER [id number] Primary SPENCER HAYDOB: Megan MARSHALL, Insurance:[employer] [id number] [facility] [place] [address]Jaa: CARE [address] [place] [address] Number: Repository () [id number] Date:8393-93-21YM [address]KIXFOGV, [place] [address]CR: 08/11/2017 Secondary NOT GIVENUNK [place] Insurance:SELF PAY [facility] Number: Effective Repository Date:2017-08-11 08/10/2017 SPENCER MICHEL8 Primary SPENCER HAYDOB: Megna [facility], Insurance:[employer] [id number] [facility] [address]Zou: CARE [address] [place] [address] Number: Repository () [id number] Date:6795-24-54FN [address]BXRYNQI, [place] [address]TP: 08/10/2017 Secondary NOT GIVENUNK [place] Insurance:SELF PAY [facility] Number: Effective Repository Date:2017-08-10 08/09/2017 SPENCER MICHEL8 Primary SPENCER HAYDOB: [facility], Insurance:[employer] [id number] [facility] [address]Eos: CARE [address] [place] [address] Number: Repository () [id number] Date:8319-40-69SS [facility] 753470JTNOENV, [place] [address]MI: 08/09/2017 Secondary NOT GIVENUNK [place] Insurance:SELF PAY [facility] Number: Effective Repository Date:2017-08-09 08/03/2017 SPENCER MICHEL8 Primary SPENCER HAYDOB: Megan BULLSAN ANTONIO, Insurance:[employer] [id number] [facility] [address]Izw: CARE [address] [place] [address] Number: Repository () [id number] Date:6074-29-64CI [address]BOGERNS, [place] [address]MK: 08/03/2017 Secondary NOT GIVENUNK [place] Insurance:SELF PAY [facility] Number: Effective Repository Date:2017-07-15 08/03/2017 SPENCER MICHEL8 Primary SPENCER HAYDOB: Megan BULLS[place]TONIO, Insurance:[employer] [id number] [facility] [place] [address]Ude: CARE [address] [place] [address] Number: Repository () [id number] Date:2132-82-06SW [address]TRAIXOG, [place] [address]NS: 08/03/2017 Secondary NOT GIVENUNK [place] Insurance:SELF PAY [facility] Number: Effective Repository Date:2017-08-03 08/03/2017 SPENCER [id number] Primary SPENCER HAYDOB: Megan [facility], Insurance:[employer] [id number] [facility] [address]Reg: CARE [address] [place] [address] Number: Repository () [id number] Date:3408-60-81FW [address]BIDWEUX, [place] [address]CQ: 08/03/2017 Secondary NOT GIVENUNK [place] Insurance:SELF PAY [facility] Number: Effective Repository Date:2017-08-03 08/03/2017 SPENCER [id number] Primary SPENCER HAYDOB: Megan [facility], Insurance:[employer] [id number] [facility] [address]Nta: CARE [address] [place] [address] Number: Repository () [id number] Date:6848-00-76PW [address]BRPIDOV, [place] [address]DS: 08/03/2017 Secondary NOT GIVENUNK [place] Insurance:SELF PAY [facility] Number: Effective Repository Date:2017-08-03 08/03/2017 SPENCER [id number] Primary SPENCER HAYDOB: Megan [facility], Insurance:[employer] [id number] [facility] [address]Tkr: CARE [address] [place] [address] Number: Repository () [id number] Date:8645-08-69FW [address]SRVAOKY, [place] [address]DY: 08/03/2017 Secondary NOT GIVENUNK [place] Insurance:SELF PAY [facility] Number: Effective Repository Date:2017-08-03 08/03/2017 SPENCERCATRACHO GUSTAFSON218 Primary SPENCER JANAYDOB: Megan BULLSAN ANTONIO, Insurance:[facility] [id number] [place] [address]Idi: CARE [address] [place] [address] Number: Repository () [id number] Date:7066-16-44QK [address]DUNWVFM[address] [place] [address]HO: 08/03/2017 Secondary NOT GIVENUNK [place] Insurance:SELF PAY [facility] Number: Effective Repository Date:2017-08-03 08/03/2017 SPENCERCATRACHO GUSTAFSON218 Primary SPENCER JANAYDOB: Megan BULLS[place]TONIO, Insurance:[facility] [id number] [facility] [address]Tpv: CARE [address] [place] [address] Number: Repository () [id number] Date:9219-73-86TQ [address]FNEVXKG, [place] [address]UO: 08/03/2017 Secondary NOT GIVENUNK [place] Insurance:SELF PAY [facility] Number: Effective Repository Date:2017-08-03 07/28/2017 SPENCER MICHEL8 Primary SPENCER JANAYDOB: Megan BULLS[place]TONIO, Insurance:[facility] [id number] [address]Knk: CARE [address] [place] [address] Number: Repository () [id number] Date:2224-31-46CJ [facility] 783857WWFIHAZ, [place] [address]QM: 07/28/2017 Secondary NOT GIVENUNK [place] Insurance:SELF PAY [facility] Number: Effective Repository Date:2017-07-28 07/28/2017 SPENCERCATRACHO GUSTAFSON218 Primary SPENCER JANAYDOB: Megan BULLS[place]TONIO, Insurance:[facility] [id number] Health [facility]ville Medical Center [address]Bvk: CARE [address] [place] [address] Number: Repository () [id number] Date:3785-63-75LR [address]JQUJBFI, [place] [address]RE: 07/28/2017 Secondary NOT GIVENUNK [place] Insurance:SELF PAY [facility] Number: Effective Repository Date:2017-08-03 07/21/2017 SPENCER MICHEL8 Primary SPENCER HAYDOB: Megan BULLSAN ANTONIO, Insurance:[facility] [id number] Health [facility] [address]Cbu: CARE [address] [place] [address] Number: Repository () [id number] Date:0621-09-66EE [facility] 087490FFIGEGU, [place] [address]TB: 07/21/2017 Secondary NOT GIVENUNK [place] Insurance:SELF PAY [facility] Number: Effective Repository Date:2017-07-31 07/21/2017 SPENCER MICHEL8 Primary SPENCER HAYDOB: Megan [facility], Insurance:[facility] [id number] [facility] [address]Lca: CARE [address] [place] [address] Number: Repository () [id number] Date:5568-61-85MD [facility] 865737XQNTSPB, [place] [address]UY: 07/21/2017 Secondary NOT GIVENUNK [place] Insurance:SELF PAY [facility] Number: Effective Repository Date:2017-07-30 07/15/2017 SPENCER MICHEL8 Primary SPENCER HAYDOB: Megan [facility], Insurance:[facility] [id number] Health [facility] [address]Yau: CARE [address] [place] [address] Number: Repository () [id number] Date:8194-44-80XW [address]TYBQHCG, [place] [address]SK: 07/15/2017 Secondary NOT GIVENUNK [place] Insurance:SELF PAY [facility] Number: Effective Repository Date:2017-06-30 07/15/2017 SPENCER MICHEL8 Primary SPENCER HAYDOB: [place] [facility], Insurance:[facility] [id number] [facility] [address]Pzi: CARE [address] [place] [address] Number: Repository () [id number] Date:8523-37-69PZ [address]TLANWRW, [place] [address]TY: 07/15/2017 Secondary NOT GIVENUNK [place] Insurance:SELF PAY [facility] Number: Effective Repository Date:2017-07-15 07/15/2017 SPENCER [id number] Primary SPENCER HAYDOB: Megan BULLS[place]IO, Insurance:[facility] [id number] [facility] [address]Ghs: CARE [address] [place] [address] Number: Repository () [id number] Date:5838-92-27ZT [address]QRXTJBA, [place] [address]DD: 07/15/2017 Secondary NOT GIVENUNK [place] Insurance:SELF PAY [facility] Number: Effective Repository Date:2017-07-15 07/15/2017 SPENCER [id number] Primary SPENCER HAYDOB: Megan [facility], Insurance:[facility] [id number] [facility] [address]Mua: CARE [address] [place] [address] Number: Repository () [id number] Date:5595-35-57TM [address]AJFITVH, [place] [address]TS: 07/15/2017 Secondary NOT GIVENUNK [place] Insurance:SELF PAY [facility] Number: Effective Repository Date:2017-07-15 07/09/2017 SPENCER [id number] Primary SPENCER HAYDOB: Megan BULLS[place]IO, Insurance:[facility] [id number] [facility] [address]Ycs: CARE [address] [place] [address] Number: Repository () [id number] Date:4719-94-21YU [address]EPCOUJP, [place] [address]XZ: 07/09/2017 Secondary NOT GIVENUNK [place] Insurance:SELF PAY [facility] Number: Effective Repository Date:2017-07-09 07/07/2017 SPENCERCATRACHO MICHEL8 Primary SPENCERCATRACHO GUSTAFSONDOB: Megan BULLS[place]IO, Insurance:[employer] [place] [id number] [facility] [place] [address]Jff: CARE [address] [place] [address] Number: Repository () [id number] Date:6197-04-91LO [facility] 735823NZWLRTD, [place] [address]ZJ: 07/07/2017 Secondary NOT GIVENUNK [place] Insurance:SELF PAY [facility] Number: Effective Repository Date:2017-07-07 06/30/2017 SPENCER [id number] Primary SPENCER JANAYDOB: Megan BULLS[place]IO, Insurance:[employer] [id number] Health [facility] [address]Unp: CARE [address] [place] [address] Number: Repository () [id number] Date:0944-69-79AY [facility] 401112DUKGNUF, [place] [address]UF: 06/30/2017 Secondary NOT GIVENUNK [place] Insurance:SELF PAY [facility] Number: Effective Repository Date:2017-06-30 06/30/2017 SPENCER MICHEL8 Primary SPENCERCATRACHO GUSTAFSONDOB: Megan BULLS[place]IO, Insurance:[facility] [id number] [facility] [place] [address]Qbj: CARE [address] [place] [address] Number: Repository () [id number] Date:2725-80-63MB [address]XEDOHAO, [place] [address]UU: 06/30/2017 Secondary NOT GIVENUNK [place] Insurance:SELF PAY [facility] Number: Effective Repository Date:2017-06-30 06/30/2017 SPENCER MICHEL8 Primary SPENCER JANAYDOB: Megan BULLS[place], Insurance:[facility] [id number] [facility] [place] [address]Oub: CARE [address] [place] [address] Number: Repository () [id number] Date:9479-49-61TC [address]NHBCIGR, [place] [address]NQ: 06/30/2017 Secondary NOT GIVENUNK [place] Insurance:SELF PAY [facility] Number: Effective Repository Date:2017-06-23 06/30/2017 SPENCERCATRACHO GUSTAFSON218 Primary SPENCER HAYDOB: Megan [facility], Insurance:[facility] [id number] Health [facility] [address]Toi: CARE [address] [place] [address] Number: Repository () [id number] Date:8480-62-37CU [address]WMWQWUN, [place] [address]YS: 06/30/2017 Secondary NOT GIVENUNK [place] Insurance:SELF PAY [facility] Number: Effective Repository Date:2017-06-30 06/23/2017 SPENCERCATRACHO GUSTAFSON218 Primary SPENCER HAYDOB: Megan BULL[place], Insurance:[facility] [id number] [facility] [address]Uov: CARE [address] [place] [address] Number: Repository () [id number] Date:0474-99-58RX [address]CIXWFPW, [place] [address]KP: 06/23/2017 Secondary NOT GIVENUNK [place] Insurance:SELF PAY [facility] Number: Effective Repository Date:2017-06-08 06/15/2017 SPENCER [id number] Primary SPENCER HAYDOB: Megan MARSHALL, Insurance:[facility] [id number] [facility] [address]Lpo: CARE [address] [place] [address] Number: Repository () [id number] Date:2529-48-17CX [address]ODEXOAT, [place] [address]GK: 06/15/2017 Secondary NOT GIVENUNK [place] Insurance:SELF PAY [facility] Number: Effective Repository Date:2017-06-15 06/15/2017 SPENCER [id number] Primary SPENCER HAYDOB: [place] SHARON [facility], Insurance:[employer] [place] [id number] [facility] [place] [address]Kfu: CARE [address] [place] [address] Number: Repository () [id number] Date:7161-82-36HA [address]NOQUYWB, [place] [address]BG: 06/15/2017 Secondary NOT GIVENUNK [place] Insurance:SELF PAY [facility] Number: Effective Repository Date:2017-06-15 06/08/2017 SPENCER [id number] Primary SPENCER HAYDOB: Megan BULLS[place]IO, Insurance:[employer] [place] [id number] [facility] [address]Vts: CARE [address] [place] [address] Number: Repository () [id number] Date:5981-05-24NW [address]UGVFBDV, [place] [address]ZA: 06/08/2017 Secondary NOT GIVENUNK [place] Insurance:SELF PAY [facility] Number: Effective Repository Date:2017-06-08 06/01/2017 SPENCER [id number] Primary SPENCER HAYDOB: Megan BULLS[place]IO, Insurance:[employer] [place] [id number] [facility] [address]Npr: CARE [address] [place] [address] Number: Repository () [id number] Date:1200-58-63NN [address]JOJHVZH, [place] [address]RZ: 06/01/2017 Secondary NOT GIVENUNK [place] Insurance:SELF PAY [facility] Number: Effective Repository Date:2017-05-18 06/01/2017 SPENCER [id number] Primary SPENCER HAYDOB: Megan BULLS[place]IO, Insurance:[employer] [place] [id number] [facility] [address]Eol: CARE [address] [place] [address] Number: Repository () [id number] Date:1614-88-43GP [address]NOXSMSF, [place] [address]LY: 06/01/2017 Secondary NOT GIVENUNK [place] Insurance:SELF PAY [facility] Number: Effective Repository Date:2017-06-01 05/25/2017 SPENCER [id number] Primary SPENCER HAYDOB: Megan [facility], Insurance:[place] [id number] [facility] [place] [address]Fhn: CARE [address] [place] [address] Number: Repository () [id number] Date:5582-92-35RU [address]UMRDKFM, [place] [address]ZY: 05/25/2017 Secondary NOT GIVENUNK [place] Insurance:SELF PAY [facility] Number: Effective Repository Date:2017-05-25 05/18/2017 SPENCER [id number] Primary SPENCER HAYDOB: Megan [facility], Insurance:UNITED [place] [id number] Health [facility] [address]Eno: CARE [address] [place] [address] Number: Repository () [id number] Date:6638-07-94OW [facility] 584469GLZSMIL, [place] [address]ZF: 05/18/2017 Secondary NOT GIVENUNK [place] Insurance:SELF PAY [facility] Number: Effective Repository Date:2017-05-18 05/18/2017 SPENCER [id number] Primary SPENCER HAYDOB: Megan [facility], Insurance:[facility] [id number] [facility] [place] [address]Mfq: CARE [address] [place] [address] Number: Repository () [id number] Date:0325-44-26SH [address]0000MMSHHJN, [place] [address]JG: 05/18/2017 Secondary NOT GIVENUNK [place] Insurance:SELF PAY [facility] Number: Effective Repository Date:2017-05-18 05/12/2017 SPENCER [id number] Primary SPENCER HAYDOB: Megan [facility], Insurance:[place] [id number] [facility] [place] [address]Rzz: CARE [address] [place] [address] Number: Repository () [id number] Date:0178-66-07OF [address]MJWVQQM, [place] [address]VN: 05/12/2017 Secondary NOT GIVENUNK [place] Insurance:SELF PAY [facility] Number: Effective Repository Date:2017-05-12 05/11/2017 SPENCER [id number] Primary SPENCER HAYDOB: Megan SHARON BULLS[place], Insurance:[facility] [id number] [facility] [place] [address]Cly: CARE [address] [place] [address] Number: Repository () [id number] Date:2759-45-66XE [address]HOLRSKH, [place] [address]GI: 05/11/2017 Secondary NOT GIVENUNK [place] Insurance:SELF PAY [facility] Number: Effective Repository Date:2017-05-11 05/07/2017 SPENCER [id number] Primary SPENCER HAYDOB: [place] SHARON BULLS[place]TONIO, Insurance:[facility] [id number] [facility] [address]Yct: CARE [address] [place] [address] Number: Repository () [id number] Date:9071-59-81OK [address]SQDLBEN, [place] [address]IK: 05/07/2017 Secondary NOT GIVENUNK [place] Insurance:SELF PAY [facility] Number: Effective Repository Date:2017-05-07 05/04/2017 SPENCER [id number] Primary SPENCER HAYDOB: [place] [facility], Insurance:[facility] [id number] [facility] [address]Fzl: CARE [address] [place] [address] Number: Repository () [id number] Date:2719-80-86VF [address]XTGNCZA, [place] [address]BQ: 05/04/2017 Secondary NOT GIVENUNK [place] Insurance:SELF PAY [facility] Number: Effective Repository Date:2017-04-30 05/04/2017 SPENCER [id number] Primary SPENCER HAYDOB: Megan MARSHALL, Insurance:[place] [id number] [facility] [place] [address]Toz: CARE [address] [place] [address] Number: Repository () [id number] Date:1282-85-33PB [address]FQNLANH [place] [address]SJ: 05/04/2017 Secondary NOT GIVENUNK [place] Insurance:SELF PAY [facility] Number: Effective Repository Date:2017-04-20 05/04/2017 SPENCER [id number] Primary SPENCER HAYDOB: Megan [facility], Insurance:[place] [id number] Health [facility] [address]Tyh: CARE [address] [place] [address] Number: Repository () [id number] Date:3285-05-12BM [address]NRAAPLA [place] [address]LT: 05/04/2017 Secondary NOT GIVENUNK [place] Insurance:SELF PAY [facility] Number: Effective Repository Date:2017-05-04 04/30/2017 SPENCER [id number] Primary SPENCER HAYDOB: Megan MARSHALL, Insurance:[place] [id number] [facility] [address]Sak: CARE [address] [place] [address] Number: Repository () [id number] Date:0700-77-79HA [address]TWRQUST, [place] [address]DF: 04/30/2017 Secondary NOT GIVENUNK Megan Insurance:SELF PAY [facility] Number: Effective Repository Date:2017-04-28 04/29/2017 SPENCER [id number] Primary SPENCER HAYDOB: Megan MARSHALL, Insurance:[place] [id number] [facility] [address]Emg: CARE [address] [place] [address] Number: Repository () [id number] Date:9735-14-53VG [address]XRPAAXB [place] [address]NU: 04/29/2017 Secondary NOT GIVENUNK [place] Insurance:SELF PAY [facility] Number: Effective Repository Date:2017-04-29 04/29/2017 SPENCERCATRACHO [id number] Primary SPENCER HAYDOB: Megan [place]ULL[place], Insurance:[facility] [id number] [facility] [place] [address]Hci: CARE [address] [place] [address] Number: Repository () [id number] Date:7499-08-24KA [address]ITXMJUH, [place] [address]GS: 04/29/2017 Secondary NOT GIVENUNK [place] Insurance:SELF PAY [facility] Number: Effective Repository Date:2017-04-29 04/28/2017 SPENCERCATRACHO [id number] Primary SPENCER HAYDOB: Megan [facility], Insurance:[facility] [id number] Health [facility] [address]Upo: CARE [address] [place] [address] Number: Repository () [id number] Date:8752-20-12ZS [facility] 620839HNWXPNR, [place] [address]HX: 04/28/2017 Secondary NOT GIVENUNK [place] Insurance:SELF PAY [facility] Number: Effective Repository Date:2017-04-24 04/20/2017 SPENCER [id number] Primary SPENCER HAYDOB: Megan [facility], Insurance:[facility] [id number] [facility] [place] [address]Pwn: CARE [address] [place] [address] Number: Repository () [id number] Date:6777-17-89RR [address]GMDMCWT, [place] [address]UJ: 04/20/2017 Secondary NOT GIVENUNK [place] Insurance:SELF PAY [facility] Number: Effective Repository Date:2017-03-23 04/06/2017 SPENCER [id number] Primary NOT GIVENUNK [place] [facility], Insurance:SELF PAY Formerly [facility], later [facility] [address]Man: [facility] Number: Effective Repository () Date:2017-03-23 03/27/2017 SPENCER MICHEL8 Primary SPENCER JANAYDOB: Megan BULLSAN ANTONIO, Insurance:[employer] [id number] [address]Rdm: CARE [address] [place] [address] Number: Repository () [id number] Date:[id number] [facility] [id number], [place] [address]YW: 03/27/2017 Secondary NOT GIVENUNK Megan Insurance:SELF PAY [facility] Number: Effective Repository Date:2017-03-27 03/27/2017 SPENCER MICHEL8 Primary SPENCERCATRACHO GUSTAFSONDOB: Megan BULLSAN ANTONIO, Insurance:[employer] [id number] [address]Diz: CARE [address] [place] [address] Number: Repository () [id number] Date:[id number], [place] [address]TY: 03/27/2017 Secondary NOT GIVENUNK [place] Insurance:SELF PAY [facility] Number: Effective Repository Date:2017-03-27 03/23/2017 SPENCER MICHEL8 Primary PSENCERCATRACHO GUSTAFSONDOB: Megan [facility], Insurance:[employer] [id number] Health [facility] [address]Ske: CARE [address] [place] [address] Number: Repository () [id number] Date:0978-11-70[id number], [place] [address]NE: 03/23/2017 Secondary NOT GIVENUNK Megan Insurance:SELF PAY [facility] Number: Effective Repository Date:2017-02-20
== END ==
PROVIDERS: Family Provider Family Medicine; PCP Family Medicine; Visit Provider Family Medicine
DX: Z00.01 Encounter for general adult medical examination with abnormal findings (principal); E01.0 Iodine-deficiency related diffuse (endemic) goiter
CPT/HCPCS: 36415; 80053; 80061; 84439; 84443; 85025

== ENCOUNTER 2018-05-16 23:27 | Emergency (ER) | payer OTHER, SELFPAY ==
[2018-05-06 17:27] VITALS: BMI 37.5
[2018-05-16 23:28] VITALS: BP 125/70; PULSE 110; RESP 24; TEMP 36.1; O2SAT 100; BMI 35.9
[2018-05-16 23:48] VITALS: RESP 16
--- NOTE | 2018-05-16 23:51 | ED.DCSUM_ITS ---
- ER Visit Summary Date of Service: 05/16/18 Chief Complaint: Epigastric abdominal pain with nausea and vomiting History of Present Illness: The patient is a 28 F past medical history of anemia and achalasia. She has a pending surgical evaluation for her achalasia. States 2 weeks ago she had epigastric abdominal pain which resolved and was never evaluated for it. Tonight around 8 PM she had sudden onset of epigastric abdominal pain associated with nausea and vomiting. No hematemesis. No fever. No melena. No diarrhea. No dysuria. No prior abdominal surgery other than C- section. Physical Examination: Young female actively vomiting in the room. Vital signs. H EENT exam unremarkable. Moist weeks membranes. Neck nontender no lymphadenopathy. Lungs clear to auscultation bilaterally. Heart regular rhythm rate about. Abdomen soft. Nondistended. Normal bowel sounds. Epigastric tenderness. Also in the right upper quadrant. No Garcia sign. No peritoneal signs. No hernias or masses. No signs of obstruction. Abdomen soft. Positive bowel sounds. She is moving all 4 extremities. No edema. Neurologically she is awake and alert. Back is nontender. Test Results: CBC shows a white count of 7. Hemoglobin 10.9 which is her baseline anemia. Electrolytes unremarkable normal creatinine and gap. Liver enzymes normal. Lipase 179 and normal. IV contrast only showed dilated esophagus consistent with her known history of achalasia. Incidental finding of gallstones but no signs of gallbladder infection or biliary obstruction. Also some constipation. Repeat exam at patient is doing well. She denied discussed all of her salvatore t results and CAT scan results. They are comfortable being discharged home and follow-up with her [facility] physicians she has a scheduled appointment the fourth week of May. Emergency Department Course and Treatment: Patient treated with IV fluids, IV Phenergan for nausea and morphine for pain. On repeat exam she was still having discomfort. Laboratory workup is essentially unremarkable. She was given a GI cocktail and p.o. Pepcid. On repeat exam patient states that she is still having pain. She is concerned that something is being missed with the laboratory work. She is requesting imaging. CT abdomen and pelvis with IV contrast will be obtained. Treatment Plan: [] Disposition: dc Impression: Acute epigastric abdominal pain of uncertain etiology with nausea and vomiting History of achalasia Incidental finding on CAT scan of gallstones This note was generated with [employer] dictation software. It may contain incorrect words, spelling, and punctuation that were not noted in review of the chart prior to signing ED Disposition - Plan for ED Patient: Disposition: Home or Assisted Living Instructions: ED Abdominal Pain Unkn Cause Prescriptions: Pantoprazole Sodium [Protonix] 40 mg PO DAILY #20 tab Referrals: Abebe Squires DO [Primary Care Provider] - As Needed Additional Instructions: Follow-up with your physicians at the [facility] as scheduled. Protonix 40 mg a day this may help you with epigastric pain if it is from reflux or gastritis.
[2018-05-16] MEDS: proMETHazine 25 MG/ML Syringe 12.5 MG IV (23:59)
[2018-05-16] MEDS: 0.9% Normal Saline 1,000 ML 1000 ML IV (23:59)
[2018-05-17] MEDS: Morphine 4 MG/ML Syringe 6 MG IV (00:02)
[2018-05-17 00:18] LABS: Absolute Lymphocyte Count 2.08 X10^3/ul (0.83-4.51); Absolute Neutrophil Count 4.8 X10^3/uL (2.0-7.7); Basophil# 0.02 X10^3/uL; Basophil% 0.3 % (0-1); Eosinophil# 0.09 X10^3/uL; Eosinophils% 1.2 % (0-5); Hemoglobin 10.9 g/dl (12.0-15.0); Lymphocyte # 2.08 X10^3/ul (4.0); Lymphocyte % 27.2 % (19-41); Mean Corp Hgb Conc 31.1 g/gl (32-36); Mean Corpuscular Volume 76.9 fL (81-99); Mean Platelet Vol. 12.3 fl (6.2-12.0); Monocyte# 0.62 X10^3/uL; Monocyte% 8.1 % (0-10); Neutrophil # 4.83 X10^3/uL (2.7-7.7); Neutrophil % 63.1 % (47-70); POSITIVE COUNT NO; POSITIVE DIFFERENTIAL NO; POSITIVE MORPHOLOGY NO; Platelet Count 162 K/mm3 (150-450); RBC Distribution Width SD 43.2 fl (35.1-43.9); Red Blood Count 4.55 M/mm3 (4.2-5.4); White Blood Count 7.7 K/mm3 (4.4-11.0)
[2018-05-17 00:29] LABS: AST(SGOT) 14 U/L (15-37); Alanine Aminotransfer ALT/SGPT 24 U/L (13-56); Albumin, Serum 3.3 g/dL (3.2-5.0); Alkaline Phosphatase 43 U/L (45-117); Anion Gap 6 (5-15); BUN 14 mg/dL (7-18); BUN/Creat Ratio 15.7 RATIO (10-20); Calcium,Total 8.4 mg/dL (8.5-10.1); Chloride 108 mmol/L (98-107); Creatinine, Serum 0.89 mg/dL (0.55-1.02); EST Glomerular Filtration Rate 80 mL/min (>60); Est Glom Filt Rate - Afr Amer 96 mL/min (>60); Globulin 3.7 g/dL (2.2-4.2); Glucose 106 mg/dL (74-106); Lipase 179 U/L (73-393); Potassium 3.9 mmol/L (3.5-5.1); Sodium Level 140 mmol/L (136-145)
--- NOTE | 2018-05-17 00:51 | CT_ITS ---
HISTORY: MID ABD PAIN WITH, N/V, HX ACHALASIA EXAMINATION: CT Abdomen And Pelvis W/ Contrast TECHNIQUE: Helically acquired images were obtained of the abdomen and pelvis following IV contrast. A radiation dose optimization technique was used for this scan. IV Contrast dosage and agent: 100ML Isovue 300 Oral contrast: None. COMPARISON: None FINDINGS: Lower thorax: Dilated fluid-filled esophagus extending to the GE junction and this correlates with the known history of achalasia. No pleural effusion. The gallbladder is well distended and shows small dependent stones. No intrahepatic or extrahepatic biliary dilatation. Normal liver. Borderline splenomegaly. Normal pancreas. No pancreatic ductal dilatation. Both kidneys are normal in position. Bilateral renal excretion of contrast without evidence of hydronephrosis, pyelonephritis, or suspicious renal lesion. Adrenal glands are not enlarged. Normal abdominal aorta and IVC. No ascites or retroperitoneal lymph enlargement. GI tract: Prominent constipation. Normal appendix. No pericolonic inflammatory changes. Pelvis: Normal uterine size. Mildly enlarged left ovary secondary to multiple cysts with the largest cyst measuring approximately 2.6 cm in diameter. Additional tiny right ovarian cyst. Small free fluid within the posterior cul-de-sac. Bones: No acute osseous abnormality. CT/Abdomen/Pelvis W IV Cont ONLY IMPRESSION: 1. Constipation pattern. No bowel obstruction. 2. Dilated fluid-filled esophagus which correlates with known history of achalasia. 3. Cholelithiasis. No biliary dilatation. 4. Bilateral ovarian cysts with secondary mild enlargement of the left ovary. Small free fluid within the posterior cul-de-sac Individualized dose optimization techniques were used for this CT. at 0139 Reported and signed by: Eloy Hare MD Electronically Signed: Eloy Hare, at 1:38 EDT Tel , Service support ,
--- NOTE | 2018-05-17 01:18 | DCINST.ED_ITS ---
ED Disposition - Plan for ED Patient: Disposition: Home or Assisted Living Instructions: ED Abdominal Pain Unkn Cause Prescriptions: Pantoprazole Sodium [Protonix] 40 mg PO DAILY #20 tab Referrals: Abebe Squires DO [Primary Care Provider] - As Needed Additional Instructions: Follow-up with your physicians at the [facility] as scheduled. Protonix 40 mg a day this may help you with epigastric pain if it is from reflux or gastritis.
[2018-05-17] MEDS: Famotidine 20 MG Tablet 40 MG PO (01:33)
[2018-05-17] MEDS: Mag Hydrox/Al Hydrox/Simeth 30 ML UDC PO (01:34)
[2018-05-17 01:37] VITALS: BP 120/72; PULSE 84; RESP 18; O2SAT 98
[2018-05-17] MEDS: Morphine 4 MG/ML Syringe IV (01:56)
[2018-05-17 02:11] VITALS: RESP 14; O2SAT 98
== END 2018-05-17 02:23 | disposition home or self-care (01) ==
PROVIDERS: Emergency Provider Emergency Medicine; Family Provider Family Medicine; PCP Family Medicine
DX: R10.13 Epigastric pain (principal); R11.2 Nausea with vomiting, unspecified; K80.20 Calculus of gallbladder without cholecystitis without obstruction; K22.0 Achalasia of cardia; E28.2 Polycystic ovarian syndrome; Z79.84 Long term (current) use of oral hypoglycemic drugs
CPT/HCPCS: 74177; 80048; 80076; 83690; 85025; 96361; 96374; 96375; 96376; 99283; J7030; Q9967; A4216

== ENCOUNTER 2018-11-30 23:37 | Emergency (ER) | payer OTHER, SELFPAY ==
[2018-10-20 13:10] VITALS: BMI 35.9
[2018-11-30 23:38] VITALS: BP 131/80; PULSE 80; RESP 16; TEMP 36.6; O2SAT 100; BMI 32.7
--- NOTE | 2018-11-30 23:51 | ED.DCSUM_ITS ---
History of Present Illness Chief Complaint: Abd Pain Detail of Chief Complaint: Gallbladder attack Informant: Patient Onset: Today Current Severity: Moderate Maximum Severity: Moderate Narrative: Patient presents with right upper quadrant pain that she describes as a gallbladder attack. She states this is a second night in a row the pain has woken her up. She has nausea. She had surgery for achalasia in June. A CT scan in May revealed gallstones. She is currently awaiting an ultrasound of her gallbladder for further work-up and evaluation. Past Medical History - Allergies and Home Meds Allergies/Adverse Reactions: Allergies No Known Allergies Allergy (Verified 11/30/18 23:40) Primary Care Physician: Abebe Squires DO [Primary Care Provider] - Prior records reviewed: Yes Past Medical History: - - Reviewed Lives: Spouse/ Significant Other Smoking Status: Never smoker Review of Systems General: Denies: Chills, Fever Eyes: Denies: Visual changes - bilaterally ENT: Denies: Bilateral ear pain Cardiovascular: Denies: Chest pain Respiratory: Denies: Dyspnea, Cough Gastrointestinal: Reports: Abdominal pain, Nausea. Denies: Diarrhea, Constipation Genitourinary: Denies: Dysuria Musculoskeletal: Denies: Extremity Pain Skin: Denies: Rash Neurological: Denies: Headache Hematologic: Denies: Easy bruising Allergy: Denies: Uticaria Physical Exam Vital Signs/Narrative: Vital Signs Temp Pulse Resp BP Pulse Ox 11/30/18 23:38 97.9 F 80 16 131/80 H 100 Inital Vital Signs reviewed: Yes General: Well nourished, Well developed Head: Normocephalic ENT: Moist mucous membranes Neck: Supple Cardiovascular: Regular rate, Regular rhythm Respiratory: No distress, CTA bilaterally Abdomen: Soft, Tender - Upper quadrant tenderness to palpation.. Negative for: Guarding, Rebound tenderness Extremities: Nontender Skin: Normal color, No rash Neurological: Alert, Oriented x3 Psychological: Normal affect Diagnostic/Tx/Re-eval 12/01/18 01:50 US Gallbladder [Gallbladder] [US] Stat Laboratory Results 11/30/18 11/30/18 11/30/18 23:50 23:50 23:50 WBC 7.7 RBC 4.94 Hgb 11.4 L Hct 37.2 MCV 75.3 L MCH 23.1 L MCHC 30.6 L RDW Std Deviation 43.7 RDW Coeff of Darell 16.2 H Plt Count 180 MPV 12.2 H Immature Gran % (Auto) 0.300 Neut % (Auto) 53.1 Lymph % (Auto) 37.5 [place] % (Auto) 7.0 Eos % (Auto) 1.6 Baso % (Auto) 0.5 Absolute Neuts (auto) 4.1 Absolute Lymphs (auto) 2.90 Nucleated RBC % 0 Sodium 139 Potassium 3.5 Chloride 105 Carbon Dioxide 26.0 Anion Gap 8 BUN 19 H Creatinine 1.04 H Estim Creat Clear Calc 75.39 Est GFR (MDRD) Af Amer 81 Est GFR (MDRD) Non-Af 67 BUN/Creatinine Ratio 18.3 Glucose 88 Calcium 9.2 Total Bilirubin 0.30 Direct Bilirubin 0.10 AST 13 L ALT 35 Alkaline Phosphatase 43 L Total Protein 7.6 Albumin 3.6 Globulin 4.0 Lipase 147 Serum , Qual NEGATIVE - Medical Decision Making Patient was initially given morphine and Zofran for pain followed by a dose of Dilaudid. Lab results are discussed with her. I did perform bedside ultrasound. She does have gallstones. I did not appreciate any significant wall thickening or pericholecystic fluid. Patient presented during hours when I did not have ultrasound easily available. We discussed possibility of staying until morning and getting a formal right upper quadrant ultrasound in light of the fact that she does have known stones. She has agreed to this. Patient will receive ultrasound first thing in the morning with anticipated discharge following. If patient has any evidence of acute cholecystitis, oncoming physician will speak with surgeon. Patient will plan to follow-up with her physician in [place]. ED Disposition - Plan for ED Patient: Disposition: Home or Assisted Living Diagnosis: Right upper quadrant pain Instructions: Gallstones Prescriptions: Hydrocodone Bitart/Apap 5-325 [[place] 5MG-325MG] 1 tablet PO Q6H PRN PRN 3 Days #10 tablet PRN Reason: Pain proMETHazine tablet [Phenergan] 25 mg PO Q6H PRN PRN #10 tablet PRN Reason: Nausea Referrals: Abebe Squires DO [Primary Care Provider] - Additional Instructions: Follow-up with your surgeon in [place] as discussed.
[2018-11-30] MEDS: Morphine 4 MG/ML Syringe IV (23:59)
[2018-11-30] MEDS: Ondansetron 4 MG/2 ML Vial IV (23:59)
[2018-11-30] MEDS: 0.9% Normal Saline 1,000 ML 150 ML IV (23:59)
[2018-12-01 00:04] LABS: Absolute Neutrophil Count 4.1 X10^3/uL (2.0-7.7); Basophil# 0.04 X10^3/uL; Basophil% 0.5 % (0-1); Eosinophil# 0.12 X10^3/uL; Eosinophils% 1.6 % (0-5); Hematocrit 37.2 % (37-47); Hemoglobin 11.4 g/dL (12.0-15.0); Lymphocyte % 37.5 % (19-41); Mean Corp Hgb Conc 30.6 g/dL (32-36); Mean Corpuscular Hgb 23.1 pg (27.0-32.0); Mean Corpuscular Volume 75.3 fL (81-99); Mean Platelet Vol. 12.2 fl (6.2-12.0); Monocyte# 0.54 X10^3/uL; NRBC Flagged by Analyzer 0 % (0-5); Neutrophil # 4.12 X10^3/uL (2.7-7.7); Neutrophil % 53.1 % (47-70); Platelet Count 180 K/mm3 (150-450); RBC Distribution Width CV 16.2 % (11.6-14.6); RBC Distribution Width SD 43.7 fl (35.1-43.9); Red Blood Count 4.94 M/mm3 (4.2-5.4); White Blood Count 7.7 K/mm3 (4.4-11.0)
[2018-12-01 00:18] LABS: Internal QC Validated? YES +Cl - CLEAR BKGD; Pregnancy, Serum, hCG Quali. NEGATIVE Negative
[2018-12-01 00:20] LABS: AST(SGOT) 13 U/L (15-37); Alanine Aminotransfer ALT/SGPT 35 U/L (13-56); Albumin, Serum 3.6 g/dL (3.2-5.0); Alkaline Phosphatase 43 U/L (45-117); Anion Gap 8 (5-15); BUN 19 mg/dL (7-18); BUN/Creat Ratio 18.3 RATIO (10-20); Calcium,Total 9.2 mg/dL (8.5-10.1); Chloride 105 mmol/L (98-107); Creatinine, Serum 1.04 mg/dL (0.55-1.02); EST Glomerular Filtration Rate 67 mL/min (>60); Est Glom Filt Rate - Afr Amer 81 mL/min (>60); Estimated Creatinine Clearance 75.39 ml/min; Glucose 88 mg/dL (74-106); Lipase 147 U/L (73-393); Potassium 3.5 mmol/L (3.5-5.1); Protein, Total 7.6 g/dL (6.4-8.2); Sodium Level 139 mmol/L (136-145)
[2018-12-01] MEDS: HYDROmorphone 1 MG/ML Syringe IV (00:49)
--- NOTE | 2018-12-01 01:50 | US_ITS ---
STUDY: ABDOMINAL ULTRASOUND - RIGHT UPPER QUADRANT REASON FOR VISIT: Female, 28 years old 3 month history of right upper quadrant pain. History of cholelithiasis. TECHNIQUE: Ultrasound evaluation of the right upper quadrant was performed with real-time and static weiss-scale imaging. TECHNICAL QUALITY: Adequate. COMPARISON: None. FINDINGS: Liver: The liver measures 16.1 cm. There is normal echogenicity of the liver. The bile ducts are within normal limits. There is hepatic color flow. The direction of portal flow is hepatopetal. There is no demonstrated mass lesion. Gallbladder: Normal distended gallbladder. The gallbladder wall is thickened and measures 4 mm. There is a positive sonographic Garcia's sign. There is no pericholecystic fluid. There are no gallstones. Common Bile Duct (C.B.D.): The common bile duct is slightly dilated and measures 7.1 mm. Pancreas: Normal size of the head, body and tail of the pancreas. There is normal echogenicity of the pancreas. There is no demonstrated pancreatic mass or cyst. Right Kidney: Normal size of the right kidney. The right kidney measures 10.8 cm x 5.4 cm x 4.1 cm. Normal renal cortex. The right cortex measures 1.3 cm. There is no demonstrated renal mass or cyst. There is no right hydronephrosis. US/Abdomen Limited IMPRESSION: Multiple gallstones and thickened gallbladder wall. Mild dilatation of the common bile duct. Electronically Signed: Moises Owens, at 8:25 EDT , Service support ,
[2018-12-01 02:03] VITALS: BP 125/74; PULSE 79; RESP 18; O2SAT 99
[2018-12-01] MEDS: proMETHazine 25 MG/ML Syringe 12.5 MG IV (02:29)
[2018-12-01] MEDS: HYDROmorphone 0.5 MG/0.5 ML SYRINGE IV (02:29)
[2018-12-01] MEDS: 0.9% Normal Saline 1,000 ML 150 ML IV (06:35)
[2018-12-01 06:37] VITALS: BP 107/67; PULSE 63; RESP 16; O2SAT 95
[2018-12-01 08:31] VITALS: BP 108/63; PULSE 79; RESP 16; O2SAT 99
[2018-12-01 08:56] VITALS: BP 128/74; PULSE 65; RESP 18; O2SAT 99
== END 2018-12-01 08:57 | disposition home or self-care (01) ==
PROVIDERS: Emergency Provider Emergency Medicine; Family Provider Family Medicine; PCP Family Medicine
DX: K80.20 Calculus of gallbladder without cholecystitis without obstruction (principal)
CPT/HCPCS: 76705; 80048; 80076; 83690; 84703; 85025; 96361; 96374; 96375; 96376; 99283; J7030; A4216; J2405

== ENCOUNTER 2018-12-17 21:49 | Emergency (ER) | payer OTHER, SELFPAY ==
[2018-12-17 21:50] VITALS: BP 149/99; PULSE 88; RESP 14; TEMP 36.7; O2SAT 97; BMI 31.4
[2018-12-17] MEDS: 0.9% Normal Saline 1,000 ML 1000 ML IV (22:34)
[2018-12-17] MEDS: Ondansetron 4 MG/2 ML Vial IV (22:35)
[2018-12-17] MEDS: Morphine 4 MG/ML Syringe IV (22:35)
[2018-12-17 22:52] LABS: Absolute Lymphocyte Count 2.64 X10^3/uL (0.83-4.51); Absolute Neutrophil Count 3.7 X10^3/uL (2.0-7.7); Basophil# 0.04 X10^3/uL; Basophil% 0.6 % (0-1); Eosinophil# 0.13 X10^3/uL; Eosinophils% 1.8 % (0-5); Hematocrit 38.6 % (37-47); Hemoglobin 11.4 g/dL (12.0-15.0); Lymphocyte # 2.64 X10^3/ul (4.0); Lymphocyte % 37.5 % (19-41); Mean Corp Hgb Conc 29.5 g/dL (32-36); Mean Corpuscular Hgb 23.1 pg (27.0-32.0); Mean Corpuscular Volume 78.1 fL (81-99); Mean Platelet Vol. 12.1 fl (6.2-12.0); Monocyte# 0.51 X10^3/uL; Monocyte% 7.2 % (0-10); NRBC Flagged by Analyzer 0 % (0-5); Neutrophil % 52.6 % (47-70); Platelet Count 236 K/mm3 (150-450); RBC Distribution Width CV 16.3 % (11.6-14.6); RBC Distribution Width SD 46.3 fl (35.1-43.9); Red Blood Count 4.94 M/mm3 (4.2-5.4)
[2018-12-17 22:57] LABS: ALB/GLOB Ratio 0.9 RATIO (0.9-2.4); AST(SGOT) 18 U/L (15-37); Alanine Aminotransfer ALT/SGPT 41 U/L (13-56); Albumin, Serum 3.6 g/dL (3.2-5.0); Alkaline Phosphatase 51 U/L (45-117); Anion Gap 7 (5-15); BUN 12 mg/dL (7-18); BUN/Creat Ratio 14.5 RATIO (10-20); Chloride 108 mmol/L (98-107); Creatinine, Serum 0.83 mg/dL (0.55-1.02); EST Glomerular Filtration Rate 86 mL/min (>60); Est Glom Filt Rate - Afr Amer 105 mL/min (>60); Estimated Creatinine Clearance 94.47 ml/min; Glucose 97 mg/dL (74-106); Lipase 155 U/L (73-393); Potassium 3.6 mmol/L (3.5-5.1); Protein, Total 7.6 g/dL (6.4-8.2); Sodium Level 141 mmol/L (136-145)
--- NOTE | 2018-12-17 23:09 | ED.DCSUM_ITS ---
- ER Visit Summary Date of Service: 12/17/18 Chief Complaint: Right upper quadrant abdominal pain History of Present Illness: The patient is a 28 F who presents with right upper quadrant abdominal pain that began today. Patient states she ate dinner approximately 1730 tonight. Patient states her pain began approximately 2 hours after that. Patient states the pain is in the right upper quadrant. Patient states pain radiates to her right side. Patient admits to nausea but denies any vomiting. Patient denies any diarrhea, melena, or hematochezia. Patient denies any dysuria or hematuria. Physical Examination: Vital signs are stable. Patient is afebrile. Patient is in no acute distress. Oral mucosa is pink and moist. Neck is supple. Trachea is midline. There is no JVD. Heart was regular rate and rhythm. Lungs are clear and equal bilaterally. Abdomen is soft. Bowel sounds are normal. There is right upper quadrant tenderness. There is no rebound or guarding noted. There is a positive Garcia sign. Cranial nerves II through XII are intact. There are no focal motor or sensory deficits noted. Test Results: CBC and competence of metabolic profile within normal limits. Lipase was normal. Emergency Department Course and Treatment: Patient was given Zofran and morphine initially. Patient states her nausea has improved but her pain is still persistent. Patient was given a repeat dose of morphine. Patient was instructed to avoid fried foods, fatty foods, and greasy foods. She was instructed to follow-up with her primary care physician in 3 to 5 days. Patient was instructed to return if worse in any way. Patient understood and was agreeable with the plan. All questions were answered. Disposition: Discharge home Impression: 1. Right upper quadrant abdominal pain 2. Biliary colic This note was generated with [employer] dictation software. It may contain incorrect words, spelling, and punctuation that were not noted in review of the chart prior to signing ED Disposition - Plan for ED Patient: Disposition: Home or Assisted Living Diagnosis: Biliary colic symptom Instructions: BILIARY COLIC with Gallstone (Presumed) Referrals: Abebe Squires DO [Primary Care Provider] - 3-5 Days
[2018-12-17] MEDS: HYDROmorphone 0.5 MG/0.5 ML SYRINGE IV (23:43)
[2018-12-17 23:59] VITALS: BP 122/72; PULSE 67; RESP 18; O2SAT 99
== END 2018-12-18 | disposition home or self-care (01) ==
LOC: ED 22:11
PROVIDERS: Emergency Provider Emergency Medicine; Family Provider Family Medicine; PCP Family Medicine
DX: K80.50 Calculus of bile duct without cholangitis or cholecystitis without obstruction (principal)
CPT/HCPCS: 80053; 83690; 85025; 96361; 96374; 96375; 99283; J7030; J2405

== ENCOUNTER 2018-12-19 00:22 | Observation (INO) | payer OTHER, SELFPAY ==
[2018-12-19] VITALS (19 sets, daily range): BP systolic 101–145; BP diastolic 62–91; PULSE 61–100; RESP 12–18; TEMP 36.6–37.4; O2SAT 96–100; BMI 36.1; BMI 33.4; BMI 33.3
--- NOTE | 2018-12-19 00:49 | ED.VIS.GI ---
History of Present Illness Chief Complaint: Abd Pain Informant: Patient - Abdominal Pain/Flank Pain Onset: Today Context: Gradual Onset Timing: Continuous, Waxes and wanes Quality: - Location: RUQ Current Severity: Severe Maximum Severity: Severe Worsened by: Food Relieved by: Nothing - Nausea/Vomiting/Emesis GI Symptom: Nausea. Negative for: Vomiting - Diarrhea/Melena/Hematochezia GI Symptom: Negative for: Diarrhea, Melena, Hematochezia Associated Symptoms: Negative for: Dysuria, Frequency, Hematuria, Urgency Narrative: Patient has known gallstones, states she is awaiting appointments with an out of town surgeon, she has achalasia and so she has been trying to stick with the same surgical team who did her distal esophageal myomotomy. She was seen here the other day for biliary colic and states she is having the same pain again after eating a piece of pizza tonight. No new symptoms. No fevers. Nauseated but not vomiting. No jaundice or itching. Pain radiates around to her mid back. - Past Medical History (1) Achalasia Status: Chronic Past Medical History - Allergies and Home Meds Allergies/Adverse Reactions: Allergies No Known Allergies Allergy (Verified 12/19/18 00:22) Surgical History: - - Distal esophageal myomotomy Lives: Spouse/ Significant Other Smoking Status: Never smoker Review of Systems General: Denies: Chills, Fever, Sweats Eyes: Denies: Visual changes - bilaterally, Diplopia ENT: Denies: Rhinorrhea, Sore throat Cardiovascular: Denies: Chest pain, Palpitations Respiratory: Denies: Dyspnea, Cough, Dyspnea on exertion Gastrointestinal: Reports: Abdominal pain, Nausea. Denies: Vomiting, Diarrhea, Melena, Hematochezia Genitourinary: Denies: Dysuria, Hematuria, Frequency Musculoskeletal: Reports: Back pain. Denies: Extremity Pain Skin: Denies: Rash, Wounds Neurological: Denies: Headache, Weakness, Numbness Physical Exam Vital Signs/Narrative: Vital Signs Temp Pulse Resp BP Pulse Ox 12/19/18 00:24 98.3 F 82 14 145/89 H 100 Inital Vital Signs reviewed: Yes General: Well nourished, Well developed, No Acute Distress - But uncomfortable Head: Normocephalic, Atraumatic Eyes: Perrl, EOMI ENT: Moist mucous membranes, No rhinorrhea Neck: Supple, Nontender Cardiovascular: Regular rate, Regular rhythm, No murmurs Respiratory: No distress, CTA bilaterally, Chest nontender Abdomen: Soft, Nondistended, Normal bowel sounds, Tender - Very tender right upper quadrant only, otherwise benign abdomen. Negative for: Guarding, Rebound tenderness, Garcia's sign Back: Nontender, Normal Inspection. Negative for: CVA tenderness Extremities: Nontender, No edema. Negative for: Calf Tenderness Skin: Normal color, No rash, No Trauma Neurological: Alert, Oriented x3, Cranial nerves II-XII grossly intact, Normal Strength, Normal Sensation Psychological: Normal affect, Normal Mood Diagnostic/Tx/Re-eval Laboratory Tests 12/19/18 12/19/18 Range/Units 00:35 00:35 WBC 6.4 (4.4-11.0) K/mm3 RBC 4.59 (4.2-5.4) M/mm3 Hgb 10.8 L (12.0-15.0) g/dL Hct 34.9 L (37-47) % MCV 76.0 L (81-99) fL MCH 23.5 L (27.0-32.0) pg MCHC 30.9 L (32-36) g/dL RDW Std Deviation 44.4 H (35.1-43.9) fl RDW Coeff of Darell 16.3 H (11.6-14.6) % Plt Count 161 (150-450) K/mm3 MPV 12.3 H (6.2-12.0) fl Immature Gran % (Auto) 0.200 (0.0-0.9) % Neut % (Auto) 41.8 L (47-70) % Lymph % (Auto) 45.7 H (19-41) % Crane % (Auto) 9.2 (0-10) % Eos % (Auto) 2.5 (0-5) % Baso % (Auto) 0.6 (0-1) % Absolute Neuts (auto) 2.7 (2.0-7.7) X10^3/uL Absolute Lymphs (auto) 2.94 (0.83-4.51) X10^3/uL Nucleated RBC % 0 (0-5) % Sodium 140 (136-145) mmol/L Potassium 4.0 (3.5-5.1) mmol/L Chloride 108 H (98-107) mmol/L Carbon Dioxide 25.0 (21.0-32.0) mmol/L Anion Gap 7 (5-15) BUN 12 (7-18) mg/dL Creatinine 0.70 (0.55-1.02) mg/dL Estim Creat Clear Calc 103.32 ml/min Est GFR (MDRD) Af Amer 127 (>60) mL/min Est GFR (MDRD) Non-Af 105 (>60) mL/min BUN/Creatinine Ratio 17.1 (10-20) RATIO Glucose 79 (74-106) mg/dL Calcium 9.0 (8.5-10.1) mg/dL Total Bilirubin 0.20 (0.20-1.00) mg/dL AST 11 L (15-37) U/L ALT 31 (13-56) U/L Alkaline Phosphatase 43 L (45-117) U/L Total Protein 7.1 (6.4-8.2) g/dL Albumin 3.4 (3.2-5.0) g/dL Globulin 3.7 (2.2-4.2) g/dL Albumin/Globulin Ratio 0.9 (0.9-2.4) RATIO Lipase 164 (73-393) U/L - Rhythm Strip Rhythm Strip: Sinus Rhythm Rate: 80 Ectopy: None - EKG Initial EKG Interpretation: Sinus Rhythm, No Acute Injury Pattern - Medical Decision Making Patient was given morphine which really did not help very much, so she was then given fentanyl which did help a lot more. Although patient presented in the middle of the night when ultrasound is not available, they needed to be called in for another patient so they agreed to ultrasound her as well. I had trouble controlling her pain, especially after ultrasound. Work-up shows no evidence for acute cholecystitis. I discussed with surgery Dr. Ayala who reviewed the images and agreed to admit her for possible cholecystectomy due to intractable pain. ED Disposition - Plan for ED Patient: Disposition: Acute Care [facility] Diagnosis: Intractable pain, Recurrent biliary colic, Cholelithiasis
[2018-12-19] MEDS: Ondansetron 4 MG/2 ML Vial IV ×2 (00:57→16:08)
[2018-12-19] MEDS: Ketorolac 30 MG/ML Syringe IV ×2 (00:58→17:44)
[2018-12-19] MEDS: Morphine 4 MG/ML Syringe IV (00:59)
[2018-12-19 01:16] LABS: ALB/GLOB Ratio 0.9 RATIO (0.9-2.4); AST(SGOT) 11 U/L (15-37); Absolute Lymphocyte Count 2.94 X10^3/uL (0.83-4.51); Absolute Neutrophil Count 2.7 X10^3/uL (2.0-7.7); Alanine Aminotransfer ALT/SGPT 31 U/L (13-56); Albumin, Serum 3.4 g/dL (3.2-5.0); Alkaline Phosphatase 43 U/L (45-117); Anion Gap 7 (5-15); BUN 12 mg/dL (7-18); BUN/Creat Ratio 17.1 RATIO (10-20); Basophil# 0.04 X10^3/uL; Basophil% 0.6 % (0-1); Chloride 108 mmol/L (98-107); EST Glomerular Filtration Rate 105 mL/min (>60); Eosinophil# 0.16 X10^3/uL; Eosinophils% 2.5 % (0-5); Est Glom Filt Rate - Afr Amer 127 mL/min (>60); Estimated Creatinine Clearance 103.32 ml/min; Globulin 3.7 g/dL (2.2-4.2); Glucose 79 mg/dL (74-106); Hematocrit 34.9 % (37-47); Hemoglobin 10.8 g/dL (12.0-15.0); Lipase 164 U/L (73-393); Lymphocyte # 2.94 X10^3/ul (4.0); Lymphocyte % 45.7 % (19-41); Mean Corp Hgb Conc 30.9 g/dL (32-36); Mean Corpuscular Hgb 23.5 pg (27.0-32.0); Mean Platelet Vol. 12.3 fl (6.2-12.0); Monocyte# 0.59 X10^3/uL; Monocyte% 9.2 % (0-10); NRBC Flagged by Analyzer 0 % (0-5); Neutrophil # 2.69 X10^3/uL (2.7-7.7); Neutrophil % 41.8 % (47-70); Platelet Count 161 K/mm3 (150-450); Protein, Total 7.1 g/dL (6.4-8.2); RBC Distribution Width CV 16.3 % (11.6-14.6); RBC Distribution Width SD 44.4 fl (35.1-43.9); Red Blood Count 4.59 M/mm3 (4.2-5.4); Sodium Level 140 mmol/L (136-145); White Blood Count 6.4 K/mm3 (4.4-11.0)
--- NOTE | 2018-12-19 01:28 | US_ITS ---
STUDY: ABDOMINAL ULTRASOUND - RIGHT UPPER QUADRANT REASON FOR VISIT: Female, 28 years old right upper quadrant pain TECHNIQUE: Ultrasound evaluation of the right upper quadrant was performed with real-time and static weiss-scale imaging. TECHNICAL QUALITY: Adequate. COMPARISON: None. FINDINGS: Liver: The liver measures 16.5 cm. There is increased echogenicity consistent with fatty infiltration. The bile ducts are within normal limits. There is hepatic color flow. The direction of portal flow is hepatopetal. There is no demonstrated mass lesion. Gallbladder: Normal distended gallbladder. The gallbladder wall measures 2 mm. There is a positive sonographic Garcia's sign. There is no pericholecystic fluid. There are multiple echogenic structures within the gallbladder, consistent with multiple gallstones. Common Bile Duct (C.B.D.): The common bile duct measures 5.9 mm. Pancreas: Normal size of the head, body and tail of the pancreas. There is normal echogenicity of the pancreas. There is no demonstrated pancreatic mass or cyst. Right Kidney: Normal size of the right kidney. The right kidney measures 10.6 x 6 x 3.9 cm. Normal renal cortex. The right cortex measures 1.3 cm. There is no demonstrated renal mass or cyst. There is no right hydronephrosis. US/Gallbladder IMPRESSION: Fatty infiltration of the liver. Cholelithiasis. Electronically Signed: Christine Freeman, at 3:41 EST Tel , Service support ,
[2018-12-19] MEDS: fentaNYL 100 MCG/2 ML Ampul 50 MCG IV ×2 (01:45→02:42)
--- NOTE | 2018-12-19 03:10 | EKG12_ITS ---
Test Reason : PRE-OP Blood Pressure : / mmHG Vent. Rate : 083 BPM Atrial Rate : 083 BPM P-R Int : 136 ms QRS Dur : 108 ms QT Int : 388 ms P-R-T Axes : 023 051 050 degrees QTc Int : 455 ms Normal sinus rhythm with sinus arrhythmia Normal ECG Confirmed by COLT HANSEN, JUAN PABLO ([id number]), advertising editor HYAICNTH FORTUNE ([id number]) on 12/20/2018 9:58:40 AM Referred By: Marianne Ayala Confirmed By:JUAN PABLO GREGORY MD
[2018-12-19] MEDS: Lactated Ringers 1,000 ML 999 ML IV (05:33)
[2018-12-19] MEDS: HYDROmorphone 0.5 MG/0.5 ML SYRINGE IV ×4 (05:59→20:54)
[2018-12-19] MEDS: Dextrose 5%-Lactated Ringers 1,000 ML 150 ML IV ×2 (06:38→20:30)
--- NOTE | 2018-12-19 07:21 | HP.PCM_ITS ---
History of Present Illness Date of Admission: 12/19/18 The patient is a 28 year old F presented to the ER last night as well as night before due to right upper quadrant abdominal pain. Patient states she has been having these episodes since September as she is started keto diet. Patient has nausea denies any vomiting as she did have a Heller's myotomy in June at [facility] due to achalasia. Patient's ultrasound did show gallbladder wall of 2 mm, normal common bile, +berg's sign, cholelithiasis, LFTs were normal. Last night patient did attempt to take Vicodin for the pain however that did not improve so she presented to the ER, patient still reports that the right upper quadrant is little tender this morning after pain meds. Past Medical History Past Medical History (Chronic Problems): Chronic Problems (Last Reviewed 10/20/18 @ 13:03 by Keysha Deal) Achalasia (Chronic) Medical History: Medical History (Last Reviewed 10/20/18 @ 13:03 by Keysha Deal) PCOS (polycystic ovarian syndrome) E28.2 Allergies No Known Allergies Allergy (Verified 12/19/18 00:22) Home Medications: Ambulatory Orders Medication Instructions Recorded etonogestrel-ethinyl estradiol 1 vag ring VAGINAL Q4W #3 ea 10/20/18 0.12 mg -0.015 mg/24 hr vaginal ring Hydrocodone Bitart/Apap 5-325 1 tab PO Q6H PRN PRN 3 Days #10 tab 12/17/18 [[place] 5MG-325MG] Surgical History: Surgical History (Last Updated 10/20/18 @ 13:04 by Keysha Deal) S/P Z98.891 s/p hellarmyotomy Surgical History: - - esophageal myomotomy due to achalasia June 2018 at [facility], Psychiatric History: No pertinent psych hx 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 Lives: Spouse/ Significant Other Smoking Status: Never smoker Alcohol: Occasional - *Family History Maternal Family History: Family History (Last Reviewed 10/20/18 @ 13:03 by Keysha Deal) Father Diabetes Mother Cancer History Items: No pertinent history Review of Systems Constitutional: Reports: Anorexia Cardiovascular: Denies: Chest Pain Respiratory: Denies: Shortness of Breath Gastrointestinal: Reports: Abdominal Pain, Nausea VTE Information - Inpt Only VTE Present on Admission: Yes VTE Mechan Device Prophylaxis: SCD's Reason prophylaxis not ordered:: Medical Contraindication - surgery Patient Problems: Active and Suspected Problems (Last Reviewed 10/20/18 @ 13:03 by Keysha Deal) Intractable pain (Acute) Recurrent biliary colic (Acute) Cholelithiasis (Acute) - Physical Exam Vitals/I&O's: Vital Signs Temp Pulse Resp BP Pulse Ox 98.1 F 75 16 101/62 98 12/19/18 05:17 12/19/18 05:17 12/19/18 05:17 12/19/18 05:17 12/19/18 05:17 Oxygen Delivery Method Room Air Weight: 207 lb 3.752 oz Body Mass Index (BMI) 33.4 Intake and Output for Last 24 Hours 12/17/18 12/18/18 12/19/18 23:59 23:59 22:59 Intake Total 1121.75 / 1121.75 Balance 1121.75 / 1121.75 General: Alert, Oriented x3, Cooperative, No apparent distress HEENT: Atraumatic Lungs: Normal air movement Cardiovascular: Regular rate Abdomen: Soft, Non-Distended, Tender - RUQ, no PS Extremities: No clubbing, No cyanosis Neurological: Cranial nerves II-XII grossly intact Psych/Mental Status: Normal Affect Laboratory Results 12/19/18 00:35: WBC 6.4, RBC 4.59, Hgb 10.8 L, Hct 34.9 L, MCV 76.0 L, MCH 23.5 L, MCHC 30.9 L, RDW Std Deviation 44.4 H, RDW Coeff of Darell 16.3 H, Plt Count 161, MPV 12.3 H, Immature Gran % (Auto) 0.200, Neut % (Auto) 41.8 L, Lymph % (Auto) 45.7 H, Nelson % (Auto) 9.2, Eos % (Auto) 2.5, Baso % (Auto) 0.6, Absolute Neuts (auto) 2.7, Absolute Lymphs (auto) 2.94, Nucleated RBC % 0 12/19/18 00:35: Sodium 140, Potassium 4.0, Chloride 108 H, Carbon Dioxide 25.0, Anion Gap 7, BUN 12, Creatinine 0.70, Estim Creat Clear Calc 103.32, Est GFR (MDRD) Af Amer 127, Est GFR (MDRD) Non-Af 105, BUN/Creatinine Ratio 17.1, Glucose 79, Calcium 9.0, Total Bilirubin 0.20, AST 11 L, ALT 31, Alkaline Phosphatase 43 L, Total Protein 7.1, Albumin 3.4, Globulin 3.7, Albumin/Globulin Ratio 0.9, Lipase 164 Current Medications Hydromorphone HCl (Dilaudid Inj) 0.5 mg IV Q2H PRN PRN PRN Reason: Pain Score 1-11/25 Last Admin: 12/19/18 05:59 Dose: 0.5 mg Documented by: Dextrose/Lactated Ringer's () 1,000 mls @ 150 mls/hr IV .[id number] [facility] Last Admin: 12/19/18 06:38 Dose: 150 mls/hr Documented by: Pantoprazole Sodium 40 mg/ (Sodium Chloride) 110 mls @ 330 mls/hr IV Q24 [facility] Last Infusion: 12/19/18 06:15 Dose: Infused Documented by: Sodium Chloride () 250 mls @ 15 mls/hr IV .[id number] PRN PRN Reason: Saline Flush Last Infusion: 12/19/18 06:39 Dose: 0 mls/hr Documented by: Ondansetron HCl (Zofran) 4 mg IV Q8H PRN PRN PRN Reason: NAUSEA Sodium Chloride () 10 - 40 ml IV UD PRN PRN Reason: SALINE FLUSH Assessment/Plan All Active Problems (Last Reviewed 10/20/18 @ 13:03 by Keysha Deal) Intractable pain (Acute) Recurrent biliary colic (Acute) Cholelithiasis (Acute) Anemia during in third trimester (Resolved) screening encounter (Resolved) Decreased movement (Resolved) Failed vacuum extraction delivery (Resolved) bradycardia (Resolved) GBS (group B Streptococcus carrier), +RV culture, currently (Resolved) Post-dates (Resolved) Segmental and somatic dysfunction of lumbar region (Resolved) Segmental and somatic dysfunction of pelvic region (Resolved) Segmental and somatic dysfunction of sacral region (Resolved) Supervision of normal (Resolved) Variable deceleration (Resolved) 28-year-old female with right upper quadrant pain, cholelithiasis Reviewed the anatomy with the patient and discussed the procedure: laparoscopic cholecystectomy with possible cholangiograms, possible open. Review risks including but not limited to bleeding, infection, hernia, bile leak, retained gallstones requiring another procedure ERCP- Endoscopic Retrograde Cholangiopancreatography, injury to another organ (bile ducts, common bile duct, small bowel, etc.) which may require transfer to tertiary care facility and conversion to an open procedure. All questions were answered. Marianne Ayala M.D. Pager: [phone] [facility] [address] [place] [address] Office: [phone]
[2018-12-19 07:55] LABS: Internal QC Validated? YES +Cl - CLEAR BKGD; Pregnancy, Urine Negative Negative
--- NOTE | 2018-12-19 08:38 | RAD_ITS ---
STUDY: INTRAOPERATIVE CHOLANGIOGRAM. REASON FOR EXAM: Female, 28 years old. Laparoscopic cholecystectomy. FLUOROSCOPY TIME (if supplied): ( 8.8 seconds ) minutes/seconds TECHNIQUE: And intraoperative contrast medium was performed by the surgeon. A single image was submitted. COMPARISON: None. FINDINGS: Limited assessment seen on the submitted image. The common bile duct is not dilated. There is free flow of contrast into the duodenum. RAD/Cholangiogram/ O R,Initial IMPRESSION: Limited visualization. There is free flow of contrast into the duodenum. Electronically Signed: Moises Owens, at 8:04 EST , Service support ,
[2018-12-19] MEDS: Bupivacaine Mpf 0.5% 30 ML VIAL (09:45)
--- NOTE | 2018-12-19 09:47 | OP.PCM_ITS ---
Report of Operation Date of Procedure: 12/19/18 Pre-Operative Diagnosis: Cholelithiasis, acute cholecystitis Post-Operative Diagnosis: Same Surgery/Procedure Performed:: Laparoscopic cholecystectomy with cholangiograms Type of Anesthesia:: General/Supplemental Anesthesiologist: America Parnell Special Medications: Cefotetan 2 g IV x1 Specimen's removed: Gallbladder Estimated Blood Loss (mL): 20 cc Fluids Replaced: 1000 cc Description of Procedure: Indications this is a 28 year-old female who developed abdominal pain/nausea/vomiting and on workup was found to have cholelithiasis, with a normal common bile duct. Laparoscopic cholecystectomy was elected. Description procedure: The patient was placed on operating table in supine position. General Anesthesia was induced. A timeout was completed verifying correct patient, procedure, site, position and special equipment prior to beginning procedure. The abdomen was prepped and draped in usual sterile fashion. An incision was made in the natural skin line above the umbilicus. The fascia was elevated and incised. The peritoneum was elevated and incised. Entry into the peritoneum was confirmed visually and no bowel was noted in the vicinity of the incision. King trocar was placed. The abdomen was insufflated with carbon dioxide to a pressure of 12-15 mmHg. Patient tolerated insufflation well. The laparoscope was then inserted and abdomen inspected. No injuries from initial trocar placement were noted. Additional trochars were then inserted in the following locations 5 mm trocar in the epigastrium and 2 more 5 mm trochars along the right costal margin. The abdomen was inspected no abnormalities were found. The table is placed in reverse Trendelenburg position with the right side up. The adhesions between the gallbladder and omentum were lysed sharply. The dome of the gallbladder was grasped with atraumatic grasper passed through the lateral port and retracted over the dome of the liver. Infundibulum was then grasped with atraumatic grasper through the midclavicular port and retracted to the right lower quadrant. This maneuver exposed Calot's triangle. The peritoneum overlying the gallbladder infundibulum was then incised and cystic duct and artery identified and circumferentially dissected. Campbell catheter was used for cholangiograms. The cholangiogram showed good filling of the common bile duct into the duodenum with no filling defects, good filling of the right and left bile ducts as well. The cystic duct and artery were then doubly clipped and divided close to the gallbladder. The gallbladder then dissected from its peritoneal attachments by electrocautery. Hemostasis was checked and the gallbladder and contained stones were removed using the endoscopic retrieval bag through the umbilical port. The gallbladder is passed off table as specimen. The gallbladder fossa was stroboscope operator iously irrigated with saline and hemostasis obtained. There is no evidence of bleeding from the gallbladder fossa or cystic artery leakage of bile from the cystic duct stump. Secondary trochars removed under direct vision. No bleeding was noted the trocar sites. The laparoscope was withdrawn and umbilical trocar removed. The abdomen was allowed to collapse. The fascia of the 12 mm trocar was closed with a [id number] 0 Vicryl suture. The skin was closed with sutures of 4-0 Monocryl and Steri-Strips. The orogastric tube was removed and the patient was extubated. The patient tolerated procedure well and was taken to the postanesthesia care unit in stable condition. - Complications none
--- NOTE | 2018-12-19 09:51 | DCINST_ITS ---
Discharge Diet: Light diet - advance as tolerated Discharge Activity: May not drive while taking narcotic pain medications. May shower in (days): 1 - 24 hours from surgery Lifting Restrictions: No lifting greater in 20-30 lbs for 4 weeks, no strenuous exercise for 5 wk Call your doctor if your incision/area has: Continuous Slow Oozing, Sudden Increased Bleeding, Increased Pain/ Swelling, Increased Redness, Foul Smelling Discharge, Swelling at the incision site Call your doctor if you observe: Fever of 101 or Higher Remove Dressing in (days):: 1 - Okay to remove OpSite tomorrow, Steri-Strips stay on for 7 to 10 days if you do not follow-up in 10 days okay to remove Additional Instructions: Okay to take ibuprofen 400-600 mg PO q6hr PRN along with the Percocet. Avoid Tylenol since there is already Tylenol in the Percocet. Take all pain meds with food. Percocet can cause constipation recommend taking daily stool softener (i.e. Colace/docusate) while taking the pain meds. Recommend starting some MiraLAX 1 to 2 days if no bowel movement. If still no bowel movement the following day recommend taking magnesium citrate half the bottle and waiting 4-6 hours if still no results take the other half the bottle. Allergies/Adverse Reactions: Allergies No Known Allergies Allergy (Verified 12/19/18 00:22) Medications to take at Discharge etonogestrel-ethinyl estradiol 0.12 mg -0.015 mg/24 hr vaginal ring 1 vag ring VAGINAL Q4W #3 ea 10/20/18 Oxycodone HCl/Acetaminophen [Percocet 5/325] 1 - 2 tab PO Q6H PRN PRN 5 Days #20 tab 12/19/18 Primary Care Physician: Abebe Squires DO [Primary Care Provider] - Test Results: Test results from this visit will be discussed in further detail at your follow- up appointment, if applicable. Please Follow Up With: Marianne Ayala MD - After 5:00 on weekends call with any concerns When: Call for follow-up appointment in 2 weeks. Proposed Discharge Date: 12/19/18
[2018-12-19] MEDS: proMETHazine 25 MG/ML Syringe 12.5 MG IV (10:20)
[2018-12-19] MEDS: Lactated Ringers 1,000 ML 100 ML IV (10:25)
--- NOTE | 2018-12-19 11:00 | GALL_PTH ---
PATIENT: MARINO GUSTAFSON LOC: MS3 U#:[id number] AGE/SX: 28/F ROOM: MS316 RE12/19/[address]: Dr. Marianne Ayala MD : 1990 BED: 1 DIS: 12/20/2018 SPEC #: [id number] RECD: 12/20/18 07:25 STATUS: JOHN PAUL KEVIN #: [id number] KAVYA: 12/19/18 11:[address]: Marianne Ayala DEPT: SURGICAL PATHOLOGY RECD BY: Cyndee Espinal ENTERED: 12/20/18 08:48 SP TYPE: KRAIG MISHRA DR: Dr. Abebe Squires DO Tissues: Gallbladder, NOS Procedures: Surgery Specimen Level III HEADER OPERATION: Laparoscopic, cholecystectomy with IOC PRE-OP DIAGNOSIS: Recurrent biliary colic (acute), cholelithiasis (acute) TISSUE SUBMITTED: Gallbladder MICROSCOPIC DIAGNOSIS Gallbladder, cholecystectomy: Chronic cholecystitis, cholelithiasis and focal cholesterolosis. MARTIN:catie 12/21/18 MICROSCOPIC DESCRIPTION Slides are reviewed. GROSS DESCRIPTION Received is one container labeled with the patient's name and designated gallbladder. The specimen consists of a gallbladder measuring 8.5 cm in length and up to 3.5 cm in diameter. The external surface is pink-medrano, smooth and glistening for the most part. Focally it is granular, hemorrhagic and contains cautery artifact. The gallbladder contains green-yellow mucoid bile and multiple brown multifaceted stones and stone fragments measuring in aggregate 4 x 4.5 x 0.8 cm and 0.3 to 0.9 cm in greatest dimension. The mucosa is bile-stained and without any mass lesions. The gallbladder wall measures up to 0.3 cm in thickness. Prorate Clerk sections from the gallbladder and the cystic duct are submitted in one cassette. / MARTIN:catie 12/20/18 TC:3 CPT: 96863
[2018-12-19] MEDS: 0.9% Saline Lock 10 ML Syringe IV ×4 (13:25→20:32)
--- NOTE | 2018-12-19 17:42 | CT_ITS ---
HISTORY: RUQ PAIN POST-OP CHOLECYSTECTOMY TODAYHX:POLYCYSTIC OVARIAN SYNDROME,ACHALASISA TECHNIQUE: Helically acquired images were obtained of the abdomen and pelvis following the intravenous administration of 100ML ml of Gastrografin Tamp; 100mL Isovue-300 Iodinated contrast. 2D reformats. Oral contrast was administered. A radiation dose optimization technique was used for this scan. COMPARISON: An ultrasound is available from earlier today. Intraoperative cholangiogram through the cystic duct remnant is from earlier today. FINDINGS: # of images incl. paperwork: 401 LUNG BASES: Dependent atelectasis with tiny pleural effusions. Tiny pericardial effusion. Hiatal hernia with reflux of ingested gastric contrast into the distal esophagus with some distal esophageal wall thickening. CT abdomen: Bones are unremarkable. The gallbladder has been resected. A tiny amount of fluid, likely normal postoperative fluid is present within the gallbladder fossa. Liver, spleen, pancreas, and adrenal glands, are normal. The kidneys are normal. The aorta is normal. CT pelvis: Small amount of abdominal and pelvic ascites is present. The uterus and ovaries are not pathologically enlarged. The appendix is normal. Series 2 image 72. The bladder is normal. A pessary is present within the vagina. CT/Abdomen/Pelvis WITH Contrast IMPRESSION: Tiny amount of fluid within the gallbladder fossa is normal for the postop state. Minimal basilar atelectasis. Small volume of ascites normal for the postop state. Individualized dose optimization techniques were used for this CT. at 2054 Reported and signed by: Carmelo Hui MD Electronically Signed: Carmelo Hui MD at 20:53 EST Tel , Service support ,
[2018-12-19 18:35] LABS: Absolute Lymphocyte Count 0.71 X10^3/uL (0.83-4.51); Absolute Neutrophil Count 10.2 X10^3/uL (2.0-7.7); Basophil# 0.02 X10^3/uL; Basophil% 0.2 % (0-1); Hematocrit 36.9 % (37-47); Hemoglobin 10.9 g/dL (12.0-15.0); Lymphocyte # 0.71 X10^3/ul (4.0); Lymphocyte % 6.4 % (19-41); Mean Corp Hgb Conc 29.5 g/dL (32-36); Mean Corpuscular Hgb 23.3 pg (27.0-32.0); Mean Corpuscular Volume 78.8 fL (81-99); Mean Platelet Vol. 12.1 fl (6.2-12.0); Monocyte% 1.8 % (0-10); NRBC Flagged by Analyzer 0 % (0-5); Neutrophil % 91.2 % (47-70); Platelet Count 221 K/mm3 (150-450); RBC Distribution Width CV 16.3 % (11.6-14.6); RBC Distribution Width SD 47.1 fl (35.1-43.9); Red Blood Count 4.68 M/mm3 (4.2-5.4); White Blood Count 11.2 K/mm3 (4.4-11.0)
[2018-12-19] MEDS: Polyethylene Glycol 3350 17 GM PACKET PO ×2 (20:33→21:00)
[2018-12-19] MEDS: oxyCODONE 5 MG Tablet PO (22:38)
[2018-12-20] MEDS: HYDROmorphone 0.5 MG/0.5 ML SYRINGE IV (01:34)
[2018-12-20 01:40] VITALS: BP 110/69; PULSE 80; RESP 16; TEMP 36.8; O2SAT 99
[2018-12-20] MEDS: Dextrose 5%-Lactated Ringers 1,000 ML 150 ML IV (01:41)
[2018-12-20] MEDS: Magnesium Citrate 300 ML 150 ML PO (05:34)
[2018-12-20] MEDS: oxyCODONE 5 MG Tablet PO (05:39)
--- NOTE | 2018-12-20 07:34 | PN.SURG_ITS ---
Patient Problems: Active and Suspected Problems (Last Reviewed 10/20/18 @ 13:03 by Keysha Deal) Intractable pain (Acute) Recurrent biliary colic (Acute) Cholelithiasis (Acute) Subjective: Patient complained of right upper quadrant pain like her previous gallbladder pain last night did get a CT abdomen pelvis which only showed constipation in the right colon especially patient given MiraLAX x2 with no results and did just get half bottle magnesium citrate this morning. - Physical Exam Vitals/I&O's: Vital Signs Temp Pulse Resp BP Pulse Ox 98.2 F 80 16 110/69 99 12/20/18 01:40 12/20/18 01:40 12/20/18 01:40 12/20/18 01:40 12/20/18 01:40 Oxygen Delivery Method Room Air Weight: 207 lb 3.752 oz Body Mass Index (BMI) 33.3 Intake and Output for Last 24 Hours 12/19/18 12/19/18 12/20/18 00:59 23:59 23:59 Intake Total 2185.0 / 2185.0 Balance 2185.0 / 2185.0 General: Alert, Oriented x3, Cooperative, No apparent distress Lungs: Normal air movement Cardiovascular: Regular rate Abdomen: Soft, Distended - Mild, Tender - Near incisions, clean dry and intact with op sites Neurological: Cranial nerves II-XII grossly intact Psych/Mental Status: Normal Affect Laboratory Results 12/19/18 07:00: Urine Test Negative 12/19/18 18:15: WBC 11.2 H, RBC 4.68, Hgb 10.9 L, Hct 36.9 L, MCV 78.8 L, MCH 23.3 L, MCHC 29.5 L, RDW Std Deviation 47.1 H, RDW Coeff of Darell 16.3 H, Plt Count 221, MPV 12.1 H, Immature Gran % (Auto) 0.400, Neut % (Auto) 91.2 H, Lymph % (Auto) 6.4 L, [place] % (Auto) 1.8, Eos % (Auto) 0.0, Baso % (Auto) 0.2, Absolute Neuts (auto) 10.2 H, Absolute Lymphs (auto) 0.71 L, Nucleated RBC % 0 Current Medications Acetaminophen (Tylenol) 650 mg PO Q4H PRN PRN PRN Reason: Pain Score 1-10/10 Docusate Sodium (Colace) 100 mg PO DAILY [facility] Hydromorphone HCl (Dilaudid Inj) 0.5 mg IV Q2H PRN PRN PRN Reason: Pain Score 1-10/10 Last Admin: 12/20/18 01:34 Dose: 0.5 mg Documented by: Pantoprazole Sodium 40 mg/ (Sodium Chloride) 110 mls @ 330 mls/hr IV Q24 [facility] Last Infusion: 12/19/18 06:15 Dose: Infused Documented by: Sodium Chloride () 250 mls @ 15 mls/hr IV .[id number] PRN PRN Reason: Saline Flush Last Infusion: 12/19/18 06:39 Dose: 0 mls/hr Documented by: Ketorolac Tromethamine (Toradol) 30 mg IV Q6H PRN PRN PRN Reason: Pain Score 1-5/10 Stop: 12/24/18 11:09 Last Admin: 12/19/18 17:44 Dose: 30 mg Documented by: Ondansetron HCl (Zofran) 4 mg IV Q8H PRN PRN PRN Reason: NAUSEA Last Admin: 12/19/18 16:08 Dose: 4 mg Documented by: Oxycodone HCl (Oxyir) 5 - 10 mg PO Q4H PRN PRN PRN Reason: Pain Score 6-10/10 Last Admin: 12/20/18 05:39 Dose: 5 mg Documented by: Sodium Chloride () 10 - 40 ml IV UD PRN PRN Reason: SALINE FLUSH Last Admin: 12/19/18 20:32 Dose: 10 ml Documented by: Medical Necessity - Tobacco Use Smoking Status: Never smoker Assessment/Plan All Active Problems (Last Reviewed 10/20/18 @ 13:03 by Keysha Deal) Intractable pain (Acute) Recurrent biliary colic (Acute) Cholelithiasis (Acute) Anemia during in third trimester (Resolved) screening encounter (Resolved) Decreased movement (Resolved) Failed vacuum extraction delivery (Resolved) bradycardia (Resolved) GBS (group B Streptococcus carrier), +RV culture, currently (Resolved) Post-dates (Resolved) Segmental and somatic dysfunction of lumbar region (Resolved) Segmental and somatic dysfunction of pelvic region (Resolved) Segmental and somatic dysfunction of sacral region (Resolved) Supervision of normal (Resolved) Variable deceleration (Resolved) 28-year-old female with right upper quadrant pain, cholelithiasis Reviewed the anatomy with the patient and discussed the procedure: laparoscopic cholecystectomy with possible cholangiograms, possible open. Review risks including but not limited to bleeding, infection, hernia, bile leak, retained gallstones requiring another procedure ERCP- Endoscopic Retrograde Cholangiopancreatography, injury to another organ (bile ducts, common bile duct, small bowel, etc.) which may require transfer to tertiary care facility and conversion to an open procedure. All questions were answered. Marianne Ayala M.D. Pager: [phone] [facility] [address] [place] [address] [address] [place] [address] Office: [phone]
[2018-12-20 08:10] VITALS: BP 120/65; PULSE 82; RESP 14; TEMP 36.7; O2SAT 96
[2018-12-20] MEDS: Docusate Sodium 100 MG Capsule PO (08:13)
[2018-12-20 11:30] VITALS: BP 133/46; PULSE 88; RESP 16; TEMP 36.8; O2SAT 99
== END 2018-12-20 11:42 | disposition home health service (06) ==
LOC: ED 03:13 → MS3 03:50
PROVIDERS: Anesthesiology; Admitting Provider Surgery; Emergency Provider Emergency Medicine; Family Provider Family Medicine; PCP Family Medicine; Referring Provider Surgery; Visit Provider Surgery
PROC: (CPT 47610; principal; 2018-12-19 11:00)
DX: K80.12 Calculus of gallbladder with acute and chronic cholecystitis without obstruction (principal); E28.2 Polycystic ovarian syndrome; K59.00 Constipation, unspecified
CPT/HCPCS: 47563; 36415; 74177; 74300; 76000; 76705; 80053; 81025; 83690; 85025; 88304; 93005; 96361; 96365; 96375; 96376; 99218; 99285; J7050; J7120; Q9967; A4216; G0378; J1610; J2405

== ENCOUNTER → 2019-11-28 11:17 | Outpatient (CLI) | payer OTHER, SELFPAY ==
[2019-11-28 10:40] VITALS: BMI 33.3
[2019-11-28 11:51] LABS: Absolute Lymphocyte Count 1.54 X10^3/uL (0.83-4.51); Absolute Neutrophil Count 4.1 X10^3/uL (2.0-7.7); Basophil# 0.03 X10^3/uL; Basophil% 0.5 % (0-1); Eosinophil# 0.07 X10^3/uL; Eosinophils% 1.1 % (0-5); Hematocrit 36.5 % (37-47); Hemoglobin 11.4 g/dL (12.0-15.0); Lymphocyte # 1.54 X10^3/ul (4.0); Lymphocyte % 24.8 % (19-41); Mean Corp Hgb Conc 31.2 g/dL (32-36); Mean Corpuscular Hgb 26.9 pg (27.0-32.0); Mean Corpuscular Volume 86.1 fL (81-99); Mean Platelet Vol. 11.9 fl (6.2-12.0); Monocyte# 0.47 X10^3/uL; Monocyte% 7.6 % (0-10); NRBC Flagged by Analyzer 0 % (0-5); Neutrophil # 4.08 X10^3/uL (2.7-7.7); Neutrophil % 65.7 % (47-70); Platelet Count 160 K/mm3 (150-450); RBC Distribution Width CV 16.6 % (11.6-14.6); RBC Distribution Width SD 51.6 fl (35.1-43.9); Red Blood Count 4.24 M/mm3 (4.2-5.4); White Blood Count 6.2 K/mm3 (4.4-11.0)
[2019-11-28 13:16] LABS: Vitamin D,25 Hydroxy 43.5 ng/mL
[2019-11-28 13:43] LABS: Cholesterol 143 mg/dL (200); Glucose 78 mg/dL (74-106); High Density Lipoprotein 79 mg/dL; Thyroid Stim Hormone (TSH) 1.27 uIU/mL (0.358-3.74); Triglycerides 103 mg/dL; Very Low Density Lipoprotein 21 mg/dL (5-40)
[2019-11-30 16:09] LABS: Testosterone Free 0.8 pg/mL (0.0-4.2)
[2019-11-30 16:10] LABS: HPV Reflexed? NOT INDICATED
== END ==
PROVIDERS: PCP Family Medicine; Referring Provider Obstetrics & Gynecology; Visit Provider Obstetrics & Gynecology
DX: E28.2 Polycystic ovarian syndrome (principal); Z12.4 Encounter for screening for malignant neoplasm of cervix; L68.0 Hirsutism
CPT/HCPCS: 36415; 80061; 82306; 82947; 84402; 84443; 85025; 88175; G0145

== ENCOUNTER → 2020-03-07 09:41 | Outpatient (CLI) | payer OTHER, SELFPAY | PROVIDERS: PCP Family Medicine; Visit Provider Family Medicine | DX: Z20.828 Contact with and (suspected) exposure to other viral communicable diseases (principal) | CPT/HCPCS: 87635; U0005; U0003 ==

== ENCOUNTER 2020-05-30 08:26 | Emergency (ER) | payer OTHER, SELFPAY ==
[2020-05-30 08:28] VITALS: BP 145/71; PULSE 75; RESP 14; TEMP 35.7; O2SAT 100; BMI 26.4
--- NOTE | 2020-05-30 09:07 | ED.DCSUM_ITS ---
- ER Visit Summary Date of Service: 05/30/20 Chief Complaint: [Concerned about possible blood clot] History of Present Illness: The patient is a 30 F [presents to the emergency department complaining of some cramping that she had in the lower lungs yesterday that lasted a few seconds and then resolved. This was not associated with any activity. Patient states that she got the Ish & Ish vaccine a week ago and yesterday on the news heard that there were a blood clot issues and the vaccine has been temporarily suspended. Patient states that she has become very anxious about that and very hyper aware of her body. Patient states that she was on the palatine this morning and had some numbness and tingling to the left arm and she is not sure if it was related to the way that she was moving but immediately got off the bike and presented to the ER to be evaluated. Patient states that she got vacation coming up in a week and just wanted to make sure that she was okay. Patient denies any chest pain currently. Initially she denied any numbness to the left hand but as we continue to talk she started complaining of some numbness and tingling to the left hand from the mid forearm to the entire hand. Patient denies recent illness. No history of PE or DVT. Currently not having any chest pain or shortness of breath out of the ordinary. She is not had exertional dyspnea. Patient has history of achalasia.] Physical Examination: [HEENT-PERRLA, EOMI. Cranial nerves II through XII grossly intact. TMs clear. Mucous membranes moist. No adenopathy. Cardiovascular-regular rate and rhythm without murmur or ectopy Lungs-clear to auscultation, chest wall stable without crepitus or subcu emphysema Abdomen-normoactive bowel sounds, soft, nontender, no rebound or rigidity, no peritoneal signs. Extremities-intact ?4, normal range of motion, normal pulses, atraumatic] Test Results: [D-dimer obtained was normal at 0.31.] Emergency Department Course and Treatment: [Results discussed with patient. Patient states that she has history of anxiety and typically its worse in February and intermittently she will have anxious episodes once or twice a month. She is asking if I could write her a as needed prescription for something to help with anxiety because she feels like a lot of her symptoms may be anxiety related. Patient states that she has had that anxious feeling starting yesterday and then again today.] Treatment Plan: [We will be given a prescription for as needed Ativan. She is advised to follow-up with her primary care physician in 3 to 5 days.] Disposition: [Discharged home in stable condition] Impression: Atypical chest pain-etiology uncertain Anxiety] This note was generated with [employer] dictation software. It may contain incorrect words, spelling, and punctuation that were not noted in review of the chart prior to signing ED Disposition - Plan for ED Patient: Referrals: Abebe Squires DO [Primary Care Provider] -
[2020-05-30 09:26] LABS: D-Dimer Quantitative (DVT/PE) 0.31 FEU/ug/m (0.27-0.49)
--- NOTE | 2020-05-30 09:56 | ED.DEP ---
ED Disposition - Plan for ED Patient: Instructions: ED Panic Attack, ED Anxiety Reaction Prescriptions: Lorazepam [Ativan] 1 mg PO TID PRN #10 tablet PRN Reason: Anxiety Transmission Status: Sent to [facility] [id number] [facility] [employer] Referrals: Abebe Squires DO [Primary Care Provider] - 5-7 Days
[2020-05-30 10:11] VITALS: PULSE 86; RESP 16; O2SAT 98
--- NOTE | 2020-05-30 10:11 | ED.DEP ---
ED Disposition - Plan for ED Patient: Instructions: ED Anxiety Reaction, ED Panic Attack Prescriptions: Lorazepam [Ativan] 1 mg PO TID PRN #10 tab PRN Reason: Anxiety Transmission Status: Received by [facility] [id number] [facility] [employer] Lorazepam [Ativan] 1 mg PO TID PRN #10 tab PRN Reason: Anxiety Prescription Printed Referrals: Abebe Squires DO [Primary Care Provider] - 5-7 Days
--- NOTE | 2020-05-30 10:15 | ED.RN ---
PER DR. RODRIGUEZ ELECTRONIC SCRIPT TO BE CANCELLED AND A PAPER SCRIPT TO BE GIVEN TO THE PT DUE TO WRONG PHARMACY ENTERED INTO THE SYSTEM. [facility] IN [place] WAS CALLED BY THIS NURSE AND THE ELECTRONIC SCRIPT WAS CANCELLED.
== END 2020-05-30 10:14 | disposition home or self-care (01) ==
LOC: ED 09:26
PROVIDERS: Emergency Provider Emergency Medicine; PCP Family Medicine
DX: R07.89 Other chest pain (principal); F41.9 Anxiety disorder, unspecified
CPT/HCPCS: 85379; 99283

== ENCOUNTER → 2020-06-18 13:15 | Outpatient (CLI) | payer OTHER, SELFPAY ==
[2020-06-18 11:48] VITALS: BMI 26.4
== END ==
LOC: LABSPEC 13:16
PROVIDERS: PCP Family Medicine; Referring Provider Nurse Practitioner Women's Health; Visit Provider Nurse Practitioner Women's Health
DX: N89.8 Other specified noninflammatory disorders of vagina (principal)
CPT/HCPCS: 87070; 87077; 87205

== ENCOUNTER 2020-07-05 19:03 | Emergency (ER) | payer OTHER, SELFPAY ==
[2020-06-18 11:48] VITALS: BMI 26.4
[2020-07-05 19:04] VITALS: BP 122/85; PULSE 71; RESP 16; TEMP 36.9; O2SAT 98; BMI 25.2
--- NOTE | 2020-07-05 20:06 | CT_ITS ---
HISTORY: pelvic pain, mass between vaginal wall and rectum EXAMINATION: CT Abdomen And Pelvis W/ Contrast Injection TECHNIQUE: Helically acquired images were obtained of the abdomen and pelvis following IV contrast. A radiation dose optimization technique was used for this scan. IV Contrast dosage and agent: 100mL [id number] Oral contrast: None. COMPARISON: 12/19/18, 05/17/18 FINDINGS: LOWER CHEST: Lung bases are clear. No cardiomegaly or pericardial effusion. Stable patulous esophagus. LIVER: Homogeneous. No focal mass. GALLBLADDER AND BILIARY TREE: Cholecystectomy. No intra- or extrahepatic biliary ductal dilation. PANCREAS: No focal cystic or solid mass. SPLEEN: Normal size without focal cystic or solid mass. ADRENAL GLANDS: No nodules. KIDNEYS AND URETERS: Normal renal size and position. No hydronephrosis. PERITONEUM: No ascites or free air. BOWEL: Normal appendix. No stomach or bowel distension. Diffusely increased colonic fecal burden. No focal inflammatory bowel wall changes. LYMPH NODES: No enlarged mesenteric or retroperitoneal lymph nodes. VESSELS: Aorta is non-dilated. URINARY BLADDER: Unremarkable. REPRODUCTIVE ORGANS: 2.3 cm left ovarian cyst. Pessary again noted in place. Low-attenuation collection posterior to the lower uterine segment and vagina, anterior to the rectum measures 2.7 x 2.2 x 1.8 cm it appears decreased from the prior study. ABDOMINAL WALL: No discrete abdominal or pelvic wall hernia. BONES: Unremarkable. CT/Abdomen/Pelvis W IV Cont ONLY IMPRESSION: No acute findings in the abdomen or pelvis. Low-attenuation collection between the vagina and the rectum which has decreased from the prior study and currently measures up to 2.7 cm. The differential diagnosis would include a seroma, abscess, vaginal leiomyoma. Lesion may be further evaluated by pelvic MRI. Recommend gynecological consultation. Stable patulous esophagus. Individualized dose optimization techniques were used for this CT. at 2159 Reported and signed by: Kp Bourne MD Electronically Signed: Kp Bourne MD at 21:58 EDT Tel , Service support ,
--- NOTE | 2020-07-05 20:08 | EDS_ITS ---
HPI History of Present Illness Chief Complaint: Other, Pain/Inj Detail of Chief Complaint: Rectal pressure and concern for mass Informant: patient Narrative Narrative: Patient presents to the emergency department from her primary care physician's office after being seen in the office today. Patient tells me that about 2 weeks ago she developed some rectal pressure that made it difficult for her to sit. She subsequently went to [place] with her family and while walking into the park had a gush of fluid that soiled her shorts and it was yellowish in color and very foul-smelling and she believes it came from her vagina. Patient has never had anything like that before. Patient states that her rectal pressure then resolved. Patient subsequently came back to [place] and was seen by her [facility] office and had a pelvic exam that was unremarkable. Patient states that at the time of her rectal pressure she also noted some discoloration about her rectum and thought that maybe she had developed a hematoma because she rides her [employer] bike daily. 2 days ago patient started having more pain in the rectum and pressure and was seen today by primary care physician who did a pelvic exam and rectal exam and thought there may be a f ullness between the vaginal wall and rectal wall. Patient has not had any fevers. She has had no vomiting. She denies rectal bleeding. Prior similar symptoms: No PFSH PFSH Medical History (Updated 07/05/20 @ 22:[address] Mercedez Garcia, DO) PCOS (polycystic ovarian syndrome) Home Medications lorazepam 1 mg PO TID PRN #10 tab 05/30/20 [Rx Last Taken Unknown] hydrocodone-acetaminophen 1 tab PO Q4H PRN PRN 2 Days #15 tablet 07/05/20 [Rx Last Taken Unknown] Allergy/AdvReac Type Severity Reaction Status Date / Time No Known Allergies Allergy Verified 07/05/20 21:40 Family History Father Diabetes Mother Cancer skin Surgical History S/P s/p hellarmyotomy Social History (Updated 03/05/20 @ 09:[address] Terri Thomson, YEVGENIY) Smoking Status: Former smoker alcohol intake: never substance use type: does not use caffeine: Yes Type: carbonated beverages Number of servings: 2 what type of physical activity do you participate in: none seatbelt use: always do you feel safe at home: Yes additional social history: [employer]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 [employer] ED Constitutional Constitutional ED: Reports systems reviewed and no addt'l complaints, except as documented; Denies body ache(s), change in weight or chills Eyes Eyes: Denies acute decrease in peripheral vision, change in vision, double vision or loss of vision ENT ENT ED: Reports none; Denies ear pain, lip swelling, loss taste/smell, neck pain, otalgia or sore throat Cardiovascular Cardiovascular: Reports none; Denies abdominal pain, chest pain with activity, leg edema, lightheadedness, palpitations, rapid heart rate or syncope Respiratory/Chest Respiratory/Chest: Reports none; Denies change in mental status, dry cough, dysp tess, hemoptysis, shortness of breath at rest or shortness of breath with exertion Gastrointestinal Gastrointestinal: Reports none and other Details: Rectal pressure ; Denies abdominal pain, change in stool character, diarrhea, hematemesis, hematochezia, melena, rectal bleeding or vomiting Genitourinary Genitourinary ED: Reports none; Denies abdominal discomfort, anuria, dysuria, genital pain or polyuria Musculoskeletal Musculoskeletal: Reports none; Denies arthralgias, back pain, difficulty walking, extremity pain, muscle weakness or myalgias Integumentary Reports none; Denies abscess or rash Neurologic Neurologic: Reports none; Denies abnormal gait, confusion, focal weakness, frequent falls, headache(s), loss of vision, numbness, paresthesias, radicular pain, vertigo or weakness Psychiatric Psychiatric: Reports systems reviewed and no addt'l complaints, except as documented and none; Denies behavioral changes, confusion, difficulty concentrating, hallucinations, suicidal ideation, tactile hallucinations or visual hallucinations Endocrine Endocrinology: Denies none, cold intolerance, excessive sweating, fatigue or heat intolerance Hematologic/Lymphatic Hematologic/Lymphatic: Reports none; Denies anemia, easy bleeding or easy bru ising Allergic/Immunologic Allergic/Immunologic ED: Denies as per HPI, none, lip swelling, mouth swelling, throat swelling, tongue swelling or hives EXAM Physical Exam Const Vital Signs: 07/05/20 19:04 07/05/20 20:52 Temperature 98.4 F Temperature Source Temporal Pulse Rate 71 Respiratory Rate 16 Respiratory Effort Normal Non-Labored Respiratory Pattern Normal Blood Pressure 122/85 H Blood Pressure Mean 97 Pulse Ox 98 Oxygen Delivery Method Room Air Positive well nourished and well developed General Appearance ED: well developed and NAD HEENT Reports TM's clear and moist mucous membranes normocephalic and atraumatic; Negative for trauma or tenderness Tympanic Membrane ED: Yes TM's clear Eyes PERRL and EOMs intact bilaterally General Eye ED: Negative for pale conjunctiva or scleral icterus Neck no lymphadenopathy, supple and no JVD General: Negative for tenderness Chest Wall inspection of chest normal and palpation of chest normal Chest: Negative for tenderness Resp normal respiratory effort and clear to auscultation bilaterally Effort and Inspection: Negative for respiratory distress or pain with movement Auscultation: Negative for rhonchi, wheezes or diminished lung sounds Cardio regular rate, regular rhythm, S1 normal heart sound, S2 normal heart sound and no murmurs Peripheral Pulses: pulses 2+ throughout GI normal to inspection, nondistended, normoactive bowel sounds, soft to palpation, non-tender, non-distended and no masses Back/Spine no CVA tenderness and no thoracic nor lumbar tenderness Extremity normal to inspection General Extremety ED: Negative for edema General Extremity: Negative for edema Neuro oriented x3, CN's II-XII intact bilaterally, no sensory deficits noted and gait normal Sensorium / Orientation: awake, alert, oriented to person, oriented to place and oriented to time Motor Exam: strength 5/5 throughout and strength abnormal Psych mental status grossly normal Skin no rashes or lesions noted and no wounds MDM MDM MDM Narrative Medical decision making narrative: I discussed case with Dr. Sandhu who was on- call for [employer] and recommended follow-up with one of their physicians in the office tomorrow or the next day. At this point the etiology of the fullness between the vagina and rectum is unclear. I do not feel antibiotics are indicated at this time as patient's had no fever or sweats and has a normal white count. She is had no further vaginal discharge. Patient will be given a prescription for [place] for pain. Lab Data Attestation: I reviewed the patient's lab results. Labs: Laboratory Results - last 24 hr 07/05/20 07/05/20 07/05/20 20:15 20:15 20:15 WBC 8.1 RBC 4.21 Hgb 11.8 L Hct 37.1 MCV 88.1 MCH 28.0 MCHC 31.8 L RDW Std Deviation 46.5 H RDW Coeff of Darell 14.4 Plt Count 167 MPV 12.0 Immature Gran % (Auto) 0.200 Neut % (Auto) 71.9 H Lymph % (Auto) 20.1 Hendricks % (Auto) 6.2 Eos % (Auto) 1.2 Baso % (Auto) 0.4 Absolute Neuts (auto) 5.8 Absolute Lymphs (auto) 1.63 Nucleated RBC % 0 Sodium 137 Potassium 3.8 Chloride 106 Carbon Dioxide 27.0 Anion Gap 4 L BUN 14 Creatinine 0.90 Estim Creat Clear Calc 85.56 Est GFR (MDRD) Af Amer 95 Est GFR (MDRD) Non-Af 78 BUN/Creatinine Ratio 15.6 Glucose 97 Calcium 9.1 Serum , Qual NEGATIVE Urine Color Urine Clarity Urine pH Ur Specific [place] Urine Protein Urine Glucose (UA) Urine Ketones Urine Occult Blood Urine Nitrite Urine Bilirubin Urine Urobilinogen Ur Leukocyte Esterase Urine RBC Urine WBC Ur Squamous Epith Cells Urine Bacteria Urine Mucus 07/05/20 20:55 WBC RBC Hgb Hct MCV MCH MCHC RDW Std Deviation RDW Coeff of Darell Plt Count MPV Immature Gran % (Auto) Neut % (Auto) Lymph % (Auto) Hendricks % (Auto) Eos % (Auto) Baso % (Auto) Absolute Neuts (auto) Absolute Lymphs (auto) Nucleated RBC % Sodium Potassium Chloride Carbon Dioxide Anion Gap BUN Creatinine Estim Creat Clear Calc Est GFR (MDRD) Af Amer Est GFR (MDRD) Non-Af BUN/Creatinine Ratio Glucose Calcium Serum , Qual Urine Color Yellow Urine Clarity Sl. Cloudy Urine pH 6.5 Ur Specific [place] 1.010 Urine Protein Negative Urine Glucose (UA) Normal Urine Ketones Negative Urine Occult Blood Negative Urine Nitrite Negative Urine Bilirubin Negative Urine Urobilinogen Normal Ur Leukocyte Esterase Negative Urine RBC 0 SEEN Urine WBC 0 SEEN Ur Squamous Epith Cells 0 SEEN Urine Bacteria 0 SEEN Urine Mucus 0 SEEN Radiography Diagnostic Testing: Radiology Impression Abdomen/Pelvis CT 07/05/20 20:06 IMPRESSION: No acute findings in the abdomen or pelvis. Low-attenuation collection between the vagina and the rectum which has decreased from the prior study and currently measures up to 2.7 cm. The differential diagnosis would include a seroma, abscess, vaginal leiomyoma. Lesion may be further evaluated by pelvic MRI. Recommend gynecological consultation. Stable patulous esophagus. Individualized dose optimization techniques were used for this CT. at 2159 Reported and signed by: Kp Bourne MD Electronically Signed: Kp Bourne MD at 21:58 EDT Tel , Service support , Discharge Plan Triage Chief Complaint: Other, Pain/Inj ED Provider: Mercedez Garcia Dx/Rx/DC Orders Clinical Impression: Pelvic pain Instructions: ED Pain, Acute, Uncertain Cause, ED Pelvic Pain, Unknown Cause Prescriptions: New hydrocodone-acetaminophen [hydrocodone-acetaminophen] 1 TABLET tablet 1 tab PO Q4H PRN PRN (Reason: Pain) 2 Days Qty: 15 RF: 0 No Action lorazepam 1 MG tablet 1 mg PO TID PRN (Reason: Anxiety) Qty: 10 RF: 0 Primary Care Provider: Abebe Squires Referrals: Abebe Squires DO [Primary Care Provider] - Viki Lopez MD [STAFF PHYSICIAN] - 1 Day for another exam Disposition Disposition: Home, self care
[2020-07-05 20:25] LABS: Absolute Lymphocyte Count 1.63 X10^3/uL (0.83-4.51); Absolute Neutrophil Count 5.8 X10^3/uL (2.0-7.7); Basophil# 0.03 X10^3/uL; Basophil% 0.4 % (0-1); Eosinophils% 1.2 % (0-5); Hematocrit 37.1 % (37-47); Hemoglobin 11.8 g/dL (12.0-15.0); Lymphocyte # 1.63 X10^3/ul (0.83-4.51); Lymphocyte % 20.1 % (19-41); Mean Corp Hgb Conc 31.8 g/dL (32-36); Mean Corpuscular Volume 88.1 fL (81-99); Monocyte% 6.2 % (0-10); NRBC Flagged by Analyzer 0 % (0-5); Neutrophil # 5.81 X10^3/uL (2.7-7.7); Neutrophil % 71.9 % (47-70); Platelet Count 167 K/mm3 (150-450); RBC Distribution Width CV 14.4 % (11.6-14.6); RBC Distribution Width SD 46.5 fl (35.1-43.9); Red Blood Count 4.21 M/mm3 (4.2-5.4); White Blood Count 8.1 K/mm3 (4.4-11.0)
[2020-07-05] MEDS: 0.9% Normal Saline 1,000 ML 150 ML IV (20:25)
[2020-07-05] MEDS: LORazepam 2 MG/ML Syringe 1 MG IV (20:25)
[2020-07-05 20:54] LABS: Anion Gap 4 (5-15); BUN 14 mg/dL (7-18); BUN/Creat Ratio 15.6 RATIO (10-20); Calcium,Total 9.1 mg/dL (8.5-10.1); Chloride 106 mmol/L (98-107); EST Glomerular Filtration Rate 78 mL/min (>60); Est Glom Filt Rate - Afr Amer 95 mL/min (>60); Estimated Creatinine Clearance 85.56 ml/min; Glucose 97 mg/dL (74-106); Potassium 3.8 mmol/L (3.5-5.1); Sodium Level 137 mmol/L (136-145)
[2020-07-05 21:03] LABS: Bacteria 0 SEEN /hpf (None Seen); Mucous, Urine 0 SEEN /hpf (<or=2+); Red Blood Cells-Urine 0 SEEN /hpf (0-5); Squamous Epithelial Cells - UA 0 SEEN /hpf (5-10); White Blood Cells 0 SEEN /hpf (0-5)
[2020-07-05 21:05] LABS: Internal QC Validated? YES +Cl - CLEAR BKGD; Pregnancy, Serum, hCG Quali. NEGATIVE Negative
[2020-07-05 21:09] LABS: Color, Urine Yellow (Yellow); Glucose, Dipstick Normal (Normal); Ketone-Dipstick Negative (Negative); Leukocyte Esterase-Dipstick Negative /ul (Negative); Nitrite-Dipstick Negative (Negative); Occult Blood-Urine Negative /ul (Negative); Protein-Dipstick Negative (Negative); Urine Bilirubin Dipstick Negative (Negative); Urine Clarity Sl. Cloudy (Clear); Urine Urobilinogen Normal (Normal); Urine pH 6.5 (5.0 - 8.0)
== END 2020-07-05 22:53 | disposition home or self-care (01) ==
PROVIDERS: Emergency Provider Emergency Medicine; PCP Family Medicine
DX: R10.2 Pelvic and perineal pain (principal); Z87.891 Personal history of nicotine dependence
CPT/HCPCS: 74177; 80048; 81001; 84703; 85025; 96361; 96374; 99283; J7030; Q9967; A4216

== ENCOUNTER → 2020-07-18 06:31 | Outpatient (CLI) | payer OTHER, SELFPAY ==
[2020-07-05 19:04] VITALS: BMI 25.2
--- NOTE | 2020-07-18 06:40 | MRI_ITS ---
STUDY: MR PELVIS WITH T WITHOUT CONTRAST REASON FOR EXAM: Female, 30 years old. MASS between vagina and rectum TECHNIQUE: Standardized fat and water weighted pulse sequences were obtained in all 3 orthogonal planes, pre-and post contrast administration. IV 14ML DOTAREM was administered for the contrast portion of the examination. COMPARISON: CT 07/05/2020. FINDINGS: Normal urinary bladder. Normal visualized small intestine. Normal visualized colon. Slight interval decrease in size of complex rim-enhancing T2 hyperintense fluid collection in the cul-de-sac now measuring 3 x 1.3 x 2.8 cm, previously 3.1 x 1.6 x 3 cm. There is no solid pelvic mass lesion or lymphadenopathy. Normal visualized pelvic arteries. Normal osseous structures. Normal abdominal wall. MRI/Pelvis W/WO Contrast IMPRESSION: Slight interval decrease in size of 3 cm pelvic abscess in the cul-de-sac. Electronically Signed: Leif Rothman MD at 16:53 EDT Tel , Service support ,
== END ==
PROVIDERS: PCP Family Medicine; Referring Provider Family Medicine; Visit Provider Family Medicine
DX: R19.00 Intra-abdominal and pelvic swelling, mass and lump, unspecified site (principal)
CPT/HCPCS: 72197; A9575

== ENCOUNTER 2021-02-18 09:22 | Outpatient (CLI) | payer OTHER, SELFPAY ==
[2021-02-18 10:01] LABS: Glucose 89 mg/dL (74-106)
[2021-02-18 10:06] LABS: Hemoglobin A1c 5.1 % (3.8-5.6)
== END 2021-02-18 23:59 | disposition short-term general hospital (02) ==
LOC: PAVLAB 09:23
PROVIDERS: PCP Family Medicine; Referring Provider Obstetrics & Gynecology; Visit Provider Obstetrics & Gynecology
DX: E28.2 Polycystic ovarian syndrome (principal)
CPT/HCPCS: 36415; 82947; 83036

== ENCOUNTER 2021-05-16 14:04 | Outpatient (CLI) | payer OTHER, SELFPAY | END 2021-05-16 23:59 | disposition home or self-care (01) | LOC: LABSPEC 14:04 | PROVIDERS: PCP Family Medicine; Visit Provider Obstetrics & Gynecology | DX: R10.2 Pelvic and perineal pain (principal) | CPT/HCPCS: 87070; 87205 ==

== ENCOUNTER 2021-05-22 11:57 | Outpatient (CLI) | payer OTHER, SELFPAY ==
--- NOTE | 2021-05-22 12:05 | US_ITS ---
STUDY: ULTRASOUND OF THE FEMALE PELVIS - COMPLETE REASON FOR EXAM: Female, 31 years old. Pelvic pain LMP: 05/03/2021. TECHNIQUE: Transabdominal and Transvaginal TECHNICAL QUALITY: Adequate. COMPARISON: None. FINDINGS: The uterus is retroverted and is in a midline position. The uterus measures 7.3 cm x 4.3 cm x 5.3 cm. Normal uterine cervix. The endometrium measures 6 mm in thickness, and is hyperechoic. There is no demonstrated endometrial mass. There is no demonstrated myometrial mass. I.U.D. - The patient does not have an I.U.D. The right ovary is visualized. The right ovary measures 4 cm x 3.2 cm x 2.2 cm. A dominant follicle is seen within it measuring 1.2 cm x 1.4 cm x 1.1 There is no visualized right adnexal mass or complex lesion. There is normal arterial and normal venous vascularity. The left ovary is visualized. The left ovary measures 3.6 cm x 2.8 cm x 2 cm. There is no left ovarian cyst or ovarian mass. There is no visualized left adnexal mass or complex lesion. There is normal arterial and normal venous vascularity. There is minimal fluid in the cul-de-sac. There is a fluid collection in the inferior pelvis measuring 2.7 cm x 3.4 cm x 1.1 cm. The pre void volume of the bladder was 556 ml. US/Pelvic (Non ) IMPRESSION: Dominant follicle seen in the right ovary. Small amount of fluid in the cul-de-sac. Electronically Signed: Moises Owens MD at 13:47 EDT ,
--- NOTE | 2021-05-22 12:05 | US_ITS ---
STUDY: ULTRASOUND OF THE FEMALE PELVIS - COMPLETE REASON FOR EXAM: Female, 31 years old. Pelvic pain LMP: 05/03/2021. TECHNIQUE: Transabdominal and Transvaginal TECHNICAL QUALITY: Adequate. COMPARISON: None. FINDINGS: The uterus is retroverted and is in a midline position. The uterus measures 7.3 cm x 4.3 cm x 5.3 cm. Normal uterine cervix. The endometrium measures 6 mm in thickness, and is hyperechoic. There is no demonstrated endometrial mass. There is no demonstrated myometrial mass. I.U.D. - The patient does not have an I.U.D. The right ovary is visualized. The right ovary measures 4 cm x 3.2 cm x 2.2 cm. A dominant follicle is seen within it measuring 1.2 cm x 1.4 cm x 1.1 There is no visualized right adnexal mass or complex lesion. There is normal arterial and normal venous vascularity. The left ovary is visualized. The left ovary measures 3.6 cm x 2.8 cm x 2 cm. There is no left ovarian cyst or ovarian mass. There is no visualized left adnexal mass or complex lesion. There is normal arterial and normal venous vascularity. There is minimal fluid in the cul-de-sac. There is a fluid collection in the inferior pelvis measuring 2.7 cm x 3.4 cm x 1.1 cm. The pre void volume of the bladder was 556 ml. US/Transvaginal Non- IMPRESSION: Dominant follicle seen in the right ovary. Small amount of fluid in the cul-de-sac. Electronically Signed: Moises Owens MD at 13:47 EDT ,
== END 2021-05-22 23:59 | disposition home or self-care (01) ==
PROVIDERS: PCP Family Medicine; Referring Provider Obstetrics & Gynecology; Visit Provider Obstetrics & Gynecology
DX: R10.2 Pelvic and perineal pain (principal)
CPT/HCPCS: 76830; 76856; 93976

== ENCOUNTER → 2022-01-29 | Outpatient (CLI) | payer OTHER, SELFPAY | END | disposition home or self-care (01) | LOC: PAVLAB 13:36 | PROVIDERS: PCP Family Medicine; Referring Provider Obstetrics & Gynecology; Visit Provider Obstetrics & Gynecology | DX: Z00.00 Encounter for general adult medical examination without abnormal findings (principal); Z83.49 Family history of other endocrine, nutritional and metabolic diseases | CPT/HCPCS: 36415; 84439; 84443 ==

== ENCOUNTER → 2022-05-21 | Outpatient (CLI) | payer OTHER, SELFPAY ==
[2022-05-28 18:33] LABS: HPV APTIMA, High Risk Negative (Negative)
== END | disposition home or self-care (01) ==
LOC: LABSPEC 10:39
PROVIDERS: PCP Family Medicine; Referring Provider Advanced Practice Midwife; Visit Provider Advanced Practice Midwife
DX: Z12.4 Encounter for screening for malignant neoplasm of cervix (principal)
CPT/HCPCS: 87624; 88175; G0145

== ENCOUNTER → 2022-09-29 | Outpatient (CLI) | payer OTHER, SELFPAY ==
[2022-09-29 11:43] LABS: Hematocrit 39.6 % (37-47); Hemoglobin 12.7 g/dL (12.0-15.0)
[2022-09-29 12:16] LABS: ALB/GLOB Ratio 0.9 RATIO (0.9-2.4); AST(SGOT) 18 U/L (15-37); Alanine Aminotransfer ALT/SGPT 27 U/L (13-56); Albumin, Serum 3.4 g/dL (3.2-5.0); Alkaline Phosphatase 34 U/L (45-117); Anion Gap 5 (5-15); BUN 13 mg/dL (7-18); BUN/Creat Ratio 14.3 RATIO (10-20); Chloride 106 mmol/L (98-107); Cholesterol 163 mg/dL (200); Creatinine, Serum 0.91 mg/dL (0.55-1.02); EST Glomerular Filtration Rate 76 mL/min (>60); Est Glom Filt Rate - Afr Amer 92 mL/min (>60); Follicle Stimulating Hormone 5.6 mIU/mL; Globulin 3.6 g/dL (2.2-4.2); Glucose 91 mg/dL (74-106); High Density Lipoprotein 75 mg/dL; Luteinizing Hormone 9.6 mIU/mL; Potassium 3.9 mmol/L (3.5-5.1); Sodium Level 138 mmol/L (136-145); Thyroid Stim Hormone (TSH) 0.96 uIU/mL (0.358-3.74); Triglycerides 125 mg/dL; Very Low Density Lipoprotein 25 mg/dL (5-40)
[2022-10-04 19:07] LABS: Testosterone, % Free 1.53 % (0.50-2.80); Testosterone, Free 0.32 ng/dL (0.10-0.85); Testosterone, Total 21 ng/dL (8-60)
== END | disposition home or self-care (01) ==
PROVIDERS: PCP Family Medicine; Referring Provider Registered Nurse; Visit Provider Registered Nurse
DX: R53.83 Other fatigue (principal); R68.82 Decreased libido; R39.16 Straining to void
CPT/HCPCS: 36415; 80053; 80061; 82627; 82670; 83001; 83002; 84146; 84270; 84402; 84403; 84443; 85014; 85018; 82626

== ENCOUNTER → 2023-08-28 | Outpatient (CLI) | payer OTHER, SELFPAY ==
[2023-08-28 10:44] LABS: Absolute Lymphocyte Count 1.78 X10^3/uL (0.83-4.51); Absolute Neutrophil Count 4.1 X10^3/uL (2.0-7.7); Basophil# 0.04 X10^3/uL; Basophil% 0.6 % (0-1); Eosinophil# 0.12 X10^3/uL; Eosinophils% 1.8 % (0-5); Hematocrit 44.5 % (37-47); Hemoglobin 14.6 g/dL (12.0-15.0); Lymphocyte # 1.78 X10^3/ul (0.83-4.51); Lymphocyte % 26.7 % (19-41); Mean Corp Hgb Conc 32.8 g/dL (32-36); Mean Corpuscular Hgb 29.1 pg (27.0-32.0); Mean Corpuscular Volume 88.6 fL (81-99); Mean Platelet Vol. 11.9 fl (6.2-12.0); Monocyte# 0.58 X10^3/uL; Monocyte% 8.7 % (0-10); NRBC Flagged by Analyzer 0 % (0-5); Neutrophil # 4.12 X10^3/uL (2.7-7.7); Neutrophil % 61.9 % (47-70); Platelet Count 213 K/mm3 (150-450); RBC Distribution Width CV 13.2 % (11.6-14.6); RBC Distribution Width SD 42.8 fl (35.1-43.9); Red Blood Count 5.02 M/mm3 (4.2-5.4); White Blood Count 6.7 K/mm3 (4.4-11.0)
[2023-08-28 11:06] LABS: Vitamin B12 561 pg/mL (211-911); Vitamin D,25 Hydroxy 43.7 ng/mL
[2023-08-28 11:11] LABS: Cholesterol 205 mg/dL (200); Glucose 89 mg/dL (74-106); High Density Lipoprotein 85 mg/dL; Thyroid Stim Hormone (TSH) 1.71 uIU/mL (0.358-3.74); Triglycerides 83 mg/dL; Very Low Density Lipoprotein 17 mg/dL (5-40)
[2023-08-29 04:09] LABS: Thyroid Peroxidase AB 14 IU/mL (0-34)
== END | disposition home or self-care (01) ==
LOC: PAVLAB 10:28
PROVIDERS: PCP Family Medicine; Referring Provider Obstetrics & Gynecology; Visit Provider Obstetrics & Gynecology
DX: Z13.820 Encounter for screening for osteoporosis (principal); R53.83 Other fatigue; Z13.1 Encounter for screening for diabetes mellitus; Z13.21 Encounter for screening for nutritional disorder
CPT/HCPCS: 36415; 80061; 82306; 82607; 82947; 84443; 85025; 86376

== ENCOUNTER → 2023-09-14 | Outpatient (CLI) | payer OTHER, SELFPAY ==
--- NOTE | 2023-09-14 15:36 | US_ITS ---
STUDY: ULTRASOUND OF THE FEMALE PELVIS - COMPLETE REASON FOR EXAM: Female, 33 years old. Abnormal uterine bleeding . History of the polycystic ovary disease. LMP: August 31, 2023. TECHNIQUE: Transabdominal and Transvaginal TECHNICAL QUALITY: Adequate. COMPARISON: Comparison is made with prior study dated May 22, 2021. FINDINGS: The uterus is retroverted and is in a midline position. The uterus measures 8.3 cm x 6.1 cm x 4.4 cm. There is a Nabothian cyst of the cervix. The endometrium measures 7 mm in thickness, and is hyperechoic. There is no demonstrated endometrial mass. There is no demonstrated myometrial mass. I.U.D. - The patient does not have an I.U.D. The right ovary is visualized. The right ovary measures 4.2 cm x 2.8 cm x 2.5 cm. There is a 1.6 cm x 1.6 cm x 1.4 cm ovarian follicle. There is no visualized right adnexal mass or complex lesion. There is normal arterial and normal venous vascularity. The left ovary is visualized. The left ovary measures 4.3 cm x 3.2 cm x 2.4 cm. There is no left ovarian cyst or ovarian mass. There is no visualized left adnexal mass or complex lesion. There is normal arterial and normal venous vascularity. There is no fluid in the cul-de-sac. The pre void volume of the bladder was 316 ml. US/Pelvic w/ Transvaginal IMPRESSION: 1.6 cm x 1.6 cm x 1.4 cm right ovarian follicle. Electronically Signed: Moises Owens MD at 9:28 EDT ,
== END | disposition home or self-care (01) ==
PROVIDERS: PCP Family Medicine; Referring Provider Obstetrics & Gynecology; Visit Provider Obstetrics & Gynecology
DX: N93.9 Abnormal uterine and vaginal bleeding, unspecified (principal)
CPT/HCPCS: 76830; 76856

== ENCOUNTER 2023-10-06 21:07 | Emergency (ER) | payer OTHER, SELFPAY ==
[2023-10-06] VITALS (7 sets, daily range): BP systolic 121–136; BP diastolic 72–86; PULSE 91–110; RESP 16–22; TEMP 37.2–37.8; O2SAT 94–98; BMI 33.5
--- NOTE | 2023-10-06 21:22 | EKG12_ITS ---
Test Reason : DYSRHYTHMIA Blood Pressure : / mmHG Vent. Rate : 090 BPM Atrial Rate : 090 BPM P-R Int : 138 ms QRS Dur : 120 ms QT Int : 342 ms P-R-T Axes : 021 024 031 degrees QTc Int : 418 ms Normal sinus rhythm Right bundle branch block Cannot rule out Inferior infarct , age undetermined Abnormal ECG Confirmed by JEIMY HANSEN, LUISANA ([id number]), editor at large KAYY YU ([id number]) on 10/09/2023 6:40:26 AM Referred By: Confirmed By:CHEVY MUNSON MD
--- NOTE | 2023-10-06 21:55 | RAD_ITS ---
INDICATION: COUGH, SOB, LUNG PAIN EXAMINATION/TECHNIQUE: X-RAY - XR Chest 1 View COMPARISON: August 08, 2017. FINDINGS: LINES/DEVICES: None LUNGS: Increased airspace opacification in the left mid and lower lung.. No effusion. No pneumothorax. MEDIASTINUM AND CARDIOVASCULAR STRUCTURES: Cardiac silhouette not enlarged. Silhouetting of the left heart border. BONES AND SOFT TISSUES: Unremarkable. RAD/Chest 1 View (Portable) IMPRESSION: Large left lower lung consolidation concerning for pneumonia. Electronically Signed: Eloy Knight MD at 22:39 EDT ,
[2023-10-06 22:03] LABS: Absolute Lymphocyte Count 0.58 X10^3/uL (0.83-4.51); Absolute Neutrophil Count 3.3 X10^3/uL (2.0-7.7); Basophil# 0.02 X10^3/uL; Basophil% 0.5 % (0-1); Hematocrit 38.6 % (37-47); Hemoglobin 12.9 g/dL (12.0-15.0); Lymphocyte # 0.58 X10^3/ul (0.83-4.51); Lymphocyte % 14.1 % (19-41); Mean Corp Hgb Conc 33.4 g/dL (32-36); Mean Corpuscular Hgb 29.4 pg (27.0-32.0); Mean Corpuscular Volume 87.9 fL (81-99); Mean Platelet Vol. 11.6 fl (6.2-12.0); Monocyte% 4.9 % (0-10); NRBC Flagged by Analyzer 0 % (0-5); Neutrophil % 80.3 % (47-70); POSITIVE DIFFERENTIAL YES; Platelet Count 116 K/mm3 (150-450); RBC Distribution Width CV 13.2 % (11.6-14.6); RBC Distribution Width SD 43.1 fl (35.1-43.9); Red Blood Count 4.39 M/mm3 (4.2-5.4); White Blood Count 4.1 K/mm3 (4.4-11.0)
[2023-10-06] MEDS: Ipratropium/Albuterol Sulfate 3 ML AMPUL.NEB INHALATION (22:18)
[2023-10-06 22:22] LABS: Anion Gap 6 (5-15); BUN 8 mg/dL (7-18); BUN/Creat Ratio 9.7 RATIO (10-20); Calcium,Total 8.6 mg/dL (8.5-10.1); Chloride 105 mmol/L (98-107); Creatinine, Serum 0.82 mg/dL (0.55-1.02); EST Glomerular Filtration Rate 85 mL/min (>60); Est Glom Filt Rate - Afr Amer 102 mL/min (>60); Estimated Creatinine Clearance 108.95 ml/min; Glucose 110 mg/dL (74-106); Potassium 3.4 mmol/L (3.5-5.1); Sodium Level 137 mmol/L (136-145)
[2023-10-06] MEDS: MethylPREDNISolone 125 MG/2 ML Vial IV (22:55)
[2023-10-06] MEDS: 0.9% Normal Saline (1000mL) 1,000 ML 999 ML IV (22:57)
[2023-10-06] MEDS: Ceftriaxone 1 GM/50 ML BAG IV (23:08)
[2023-10-06] MEDS: Azithromycin 500 MG in Dextrose 5%-Water (250mL Bag) 250 ML 250 MG IV (23:54)
[2023-10-07] MEDS: Ibuprofen 200 MG Tablet 400 MG PO (00:02)
--- NOTE | 2023-10-07 00:13 | EX.ED.DYSGE1 ---
HPI History of Present Illness Chief Complaint: Shortness of Breath Informant: patient and spouse/S.O. Narrative Narrative: Patient is a 33-year-old female with past medical history of PCOS who states she has had fever reaching 103 with fatigue chills cough and shortness of breath for the past 3 to 4 days. She denies any known sick contacts and states no one else at home has her symptoms. She denies any history of breathing disorders such as asthma or COPD and she denies any smoking or vaping history. She states that as the days have passed she has noticed increased chest discomfort and shortness of breath which concerned her for an infectious process and therefore she comes in for evaluation. [facility] Medical History (Updated 10/07/23 @ 03:[address] Sergio Harry, DO) Anxiety ADHD PCOS (polycystic ovarian syndrome) Home Medications ?Medication ?Instructions ?Recorded ?Last Taken ?Type lorazepam 1 mg/0.5 mL oral syringe 1 mg PO BID PRN 05/21/22 Unknown History (FOR ORAL USE ONLY) spironolactone 50 mg tablet 50 mg PO DAILY 05/21/22 Unknown History albuterol sulfate 90 mcg/actuation 1 - 2 puff inhalation Q4H PRN PRN 10/07/23 Unknown Rx aerosol inhaler (Ventolin HFA) Wheezing/SOB #1 device azithromycin 250 mg tablet See Rx Instructions PO .COMPLEX #6 10/07/23 Unknown Rx (Zithromax Z-Silverio) tabs doxycycline hyclate 100 mg capsule 100 mg PO BID 10 days #20 caps 10/07/23 Unknown Rx hydrocodone-homatropine 5 mg-1.5 5 ml PO 4X/DAY PRN cough 7 days 10/07/23 Unknown Rx mg/5 mL (5 mL) oral syrup (Hycodan) #140 mL Allergy/AdvReac Type Severity Reaction Status Date / Time No Known Allergies Allergy Verified 10/06/23 21:08 Family History Father Diabetes Mother Cancer skin Surgical History S/P s/p hellarmyotomy Social History Smoking Status: Never smoker alcohol intake: never substance use type: does not use caffeine: Yes Type: carbonated beverages Number of servings: 2 what type of physical activity do you participate in: none seatbelt use: always do you feel safe at home: Yes additional social history: [employer]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 CORTES ROS ED Constitutional Constitutional ED: Reports chills and fever(s) ENT ENT ED: Denies rhinorrhea or sore throat Cardiovascular Cardiovascular: Reports chest pain; Denies palpitations or racing heartbeat Respiratory/Chest Respiratory/Chest: Reports cough and dyspnea Gastrointestinal Gastrointestinal: Denies abdominal pain, diarrhea, nausea or vomiting Genitourinary Genitourinary ED: Denies dysuria Musculoskeletal Musculoskeletal: Reports myalgias Integumentary Denies rash Neurologic Neurologic: Denies headache(s) Hematologic/Lymphatic Hematologic/Lymphatic: Denies easy bleeding or easy bruising Allergic/Immunologic Allergic/Immunologic ED: Denies mouth swelling or tongue swelling EXAM Physical Exam Const Vital Signs: 10/06/23 21:08 10/06/23 21:17 10/06/23 21:19 Temperature 98.9 F Temperature Source Temporal Pulse Rate 110 H Pulse Rate [Lying] Pulse Rate [Sitting (for 1 minute prior to obtaining)] Pulse Rate [Standing (for 1 minute prior to obtaining)] Respiratory Rate 16 Respiratory Effort Normal Non-Labored Normal Non-Labored Respiratory Depth Normal Respiratory Pattern Normal Normal Blood Pressure 129/86 H Blood Pressure [Lying] Blood Pressure [Sitting (for 1 minute prior to obtaining)] Blood Pressure [Standing (for 1 minute prior to obtaining)] Blood Pressure Mean 100 Blood Pressure Mean [Lying] Blood Pressure Mean [Sitting (for 1 minute prior to obtaining)] Blood Pressure Mean [Standing (for 1 minute prior to obtaining)] Pulse Ox 98 Oxygen Delivery Method Room Air Room Air 10/06/23 21:23 10/06/23 21:40 10/06/23 21:52 Temperature Temperature Source Pulse Rate Pulse Rate [Lying] 91 Pulse Rate [Sitting (for 1 minute prior to obtaining)] 100 Pulse Rate [Standing (for 1 minute prior to obtaining)] 108 H Respiratory Rate 22 H Respiratory Effort Respiratory Depth Respiratory Pattern Blood Pressure Blood Pressure [Lying] 124/78 H Blood Pressure [Sitting (for 1 minute prior to obtaining)] 121/75 H Blood Pressure [Standing (for 1 minute prior to obtaining)] 131/85 H Blood Pressure Mean Blood Pressure Mean [Lying] 93 Blood Pressure Mean [Sitting (for 1 minute prior to obtaining)] 90 Blood Pressure Mean [Standing (for 1 minute prior to obtaining)] 100 Pulse Ox 97 Oxygen Delivery Method Room Air Room Air 10/06/23 22:08 10/06/23 22:18 10/06/23 23:00 Temperature Temperature Source Pulse Rate 100 104 H 97 Pulse Rate [Lying] Pulse Rate [Sitting (for 1 minute prior to obtaining)] Pulse Rate [Standing (for 1 minute prior to obtaining)] Respiratory Rate 22 H 18 19 H Respiratory Effort Respiratory Depth Respiratory Pattern Normal Blood Pressure 136/79 H 124/73 H Blood Pressure [Lying] Blood Pressure [Sitting (for 1 minute prior to obtaining)] Blood Pressure [Standing (for 1 minute prior to obtaining)] Blood Pressure Mean 98 90 Blood Pressure Mean [Lying] Blood Pressure Mean [Sitting (for 1 minute prior to obtaining)] Blood Pressure Mean [Standing (for 1 minute prior to obtaining)] Pulse Ox 94 97 Oxygen Delivery Method Room Air Room Air 10/06/23 23:59 10/07/23 01:14 Temperature 100.1 F H 100 F H Temperature Source Oral Pulse Rate 99 94 Pulse Rate [Lying] Pulse Rate [Sitting (for 1 minute prior to obtaining)] Pulse Rate [Standing (for 1 minute prior to obtaining)] Respiratory Rate 22 H 18 Respiratory Effort Respiratory Depth Respiratory Pattern Blood Pressure 131/72 H 99/53 L Blood Pressure [Lying] Blood Pressure [Sitting (for 1 minute prior to obtaining)] Blood Pressure [Standing (for 1 minute prior to obtaining)] Blood Pressure Mean 91 68 Blood Pressure Mean [Lying] Blood Pressure Mean [Sitting (for 1 minute prior to obtaining)] Blood Pressure Mean [Standing (for 1 minute prior to obtaining)] Pulse Ox 96 96 Oxygen Delivery Method Room Air Positive well nourished and well developed General Appearance ED: well developed; Negative for pallor HEENT Reports moist mucous membranes HEENT Narrative: No tongue or lip swelling no oral lesions no airway edema or compromise Mild cobblestoning is noted in the posterior pharynx consistent with sinus drainage No secondary findings to suggest infection Eyes PERRL and EOMs intact bilaterally General Eye ED: Negative for scleral icterus Neck supple and no JVD Neck Narrative: No nuchal rigidity or meningeal signs noted Chest Wall palpation of chest normal Chest Narrative: No bony deformity or crepitance present Resp normal respiratory effort Resp Narrative: Breath sounds are diminished throughout. Patient has rhonchi present in the left upper and lower lobe. No nasal flaring retractions tachypnea or accessory muscle use. Cardio regular rhythm Rate: tachycardic and other Other Details: Tachycardic rate with regular rhythm. Radial and carotid pulses equal and symmetric No murmurs rubs or gallops Extremity normal to inspection Extremity Narrative: No asymmetric edema no pitting edema negative Homans' sign bilaterally Neuro oriented x3, CN's II-XII intact bilaterally and no sensory deficits noted Sensorium / Orientation: alert Motor Exam: strength 5/5 throughout Psych mental status grossly normal Skin no rashes or lesions noted and no wounds General Skin Exam: Negative for jaundice or pallor MDM MDM MDM Narrative Medical decision making narrative: Patient arrived to the ER slightly tachycardic but otherwise with stable vitals. She reported a fever reaching 103 at home however she was normal upon arrival but does admit to taking Tylenol. With report of fever shortness of breath and chest discomfort there is concern for pneumonia versus pneumothorax versus viral infection such as COVID versus influenza versus RSV. The patient reported she took 3 home COVID test which were all negative and therefore does not want a repeat COVID test obtained. With concern for pneumonia chest x-ray was ordered. This did show edema/haziness in the left lower lobe consistent with infection. The patient's white count is slightly low but her absolute neutrophil count is normal and she does not have signs of acute blood loss anemia or acute kidney injury. She does not have a history of immunosuppression. Nor does she have increased work of breathing or require supplemental oxygen. Therefore this time patient does have pneumonia and with her negative home COVID test that is most likely bacterial but as she is not hypoxic or showing signs of septicemia there is no need for admission and she can be discharged home on antibiotics History & Record Review Discussion w/independent historian: Patient and Significant other Lab Data Attestation: I reviewed the patient's lab results. Labs: Laboratory Results - last 24 hr 10/06/23 21:49 WBC 4.1 L RBC 4.39 Hgb 12.9 Hct 38.6 MCV 87.9 MCH 29.4 MCHC 33.4 RDW Std Deviation 43.1 RDW Coeff of Darell 13.2 Plt Count 116 L MPV 11.6 Immature Gran % (Auto) 0.200 Neut % (Auto) 80.3 H Lymph % (Auto) 14.1 L [place] % (Auto) 4.9 Eos % (Auto) 0.0 Baso % (Auto) 0.5 Absolute Neuts (auto) 3.3 Absolute Lymphs (auto) 0.58 L Nucleated RBC % 0 Sodium 137 Potassium 3.4 L Chloride 105 Carbon Dioxide 26.0 Anion Gap 6 BUN 8 Creatinine 0.82 Estim Creat Clear Calc 108.95 Est GFR (MDRD) Af Amer 102 Est GFR (MDRD) Non-Af 85 BUN/Creatinine Ratio 9.7 L Glucose 110 H Calcium 8.6 Radiography Diagnostic Testing: Clinical Impression(s) from Imaging Studies Chest X-Ray 10/06/23 21:55 IMPRESSION: Large left lower lung consolidation concerning for pneumonia. Electronically Signed: Eloy Knight MD at 22:39 EDT Reading Location ID and State: [facility] [place] Tel , Service support , Chest x-ray as interpreted by the emergency medicine physician reveals consolidation/haziness in the left mid to lower lobes consistent with pneumonia Discharge Plan Triage Chief Complaint: Shortness of Breath Other Complaint: Fever ED Provider: Sergio Harry Dx/Rx/DC Orders Clinical Impression: Left lower lobe pneumonia, PCOS (polycystic ovarian syndrome) Instructions: ED Pneumonia (Adult) Prescriptions: New albuterol sulfate [Ventolin HFA] 90 mcg/actuation HFA aerosol inhaler 1 - 2 puff inhalation Q4H PRN PRN (Reason: Wheezing/SOB) Qty: 1 0RF hydrocodone-homatropine [Hycodan] 5-1.5 mg/5 mL (5 mL) syrup 5 ml PO 4X/DAY PRN (Reason: cough) 7 Days Qty: 140 0RF azithromycin [Zithromax Z-Silverio] 250 mg tablet See Rx Instructions .ROUTE .COMPLEX Qty: 6 0RF Rx Instructions: For 250 mg dose pack: take 500 mg today (day 1), then 250 mg for 4 days (days 2-5) doxycycline hyclate 100 mg capsule 100 mg PO BID 10 Days Qty: 20 0RF No Action spironolactone 50 mg tablet 50 mg PO DAILY lorazepam 1 mg/0.5 mL syringe 1 mg PO BID PRN Primary Care Provider: Abebe Squires Referrals: Abebe Squires DO [Primary Care Provider] - Activity Restrictions/Additional Instructions: Your x-ray showed left-sided pneumonia which does correlate with your chest discomfort and shortness of breath. Take the antibiotics as directed to resolve this. It would typically take 48 to 72 hours for symptoms to improve. Continue Tylenol and/or Motrin for fever and pain control and return to the ER if you have any further concerns or worsening of symptoms Print Language: Urdu Disposition Disposition: Home, Self Care Discharge Date/Time: 10/07/23 01:16
[2023-10-07 01:14] VITALS: BP 99/53; PULSE 94; RESP 18; TEMP 37.7; O2SAT 96
== END 2023-10-07 01:16 | disposition home or self-care (01) ==
PROVIDERS: Emergency Provider Emergency Medicine; PCP Family Medicine; Visit Provider Emergency Medicine
DX: J18.9 Pneumonia, unspecified organism (principal); E28.2 Polycystic ovarian syndrome
CPT/HCPCS: 71045; 80048; 85025; 93005; 94640; 94760; 96365; 96367; 96375; 99285; J7030; J7050; A4216

== ENCOUNTER → 2023-11-18 | Outpatient (CLI) | payer OTHER, SELFPAY ==
--- NOTE | 2023-11-18 10:50 | RAD_ITS ---
INDICATION: FU PNA EXAMINATION/TECHNIQUE: X-RAY - XR Chest 2 Views COMPARISON: 10/06/2023 chest radiograph. Findings: Frontal and lateral views of the chest. LUNG PARENCHYMA: No acute focal airspace disease or mass lesion. PLEURA: No pleural effusion. No pneumothorax. HEART/GREAT VESSELS: Cardiomediastinal silhouette is unremarkable. BONES: Osseous structures are unremarkable for age. RAD/Chest PA and Lateral IMPRESSION: Chest with no acute disease. Electronically Signed: Trace Castillo MD at 21:14 EDT ,
== END | disposition home or self-care (01) ==
PROVIDERS: PCP Family Medicine; Referring Provider Family Medicine; Visit Provider Family Medicine
DX: J18.9 Pneumonia, unspecified organism (principal)
CPT/HCPCS: 71046

== ENCOUNTER → 2024-04-18 | Outpatient (CLI) | payer OTHER, SELFPAY ==
[2024-04-18 13:56] LABS: Amphetamine Urine PRESUMTIVE POSITIVE (<1000 ng/mL); Barbiturate Urine NEGATIVE (< 200 ng/mL); Benzodiazepine Urine NEGATIVE (< 200 ng/mL); Buprenorphine Urine NEGATIVE (< 200 ng/mL); Cocaine Urine NEGATIVE (< 300 ng/mL); Fentanyl, Urine NEGATIVE; Methadone Urine NEGATIVE (< 300 ng/mL); Opiates Urine NEGATIVE (< 300 ng/mL); Oxycodone, Urine NEGATIVE (< 100 ng/mL); PCP Urine NEGATIVE (< 25 ng/mL); THC Urine NEGATIVE (< 50 ng/mL)
== END | disposition home or self-care (01) ==
LOC: LABSPEC 10:12
PROVIDERS: PCP Family Medicine; Referring Provider Family Medicine; Visit Provider Family Medicine
DX: Z79.899 Other long term (current) drug therapy (principal)
CPT/HCPCS: 80307

== ENCOUNTER → 2024-12-07 | Outpatient (CLI) | payer OTHER, SELFPAY ==
--- NOTE | 2024-12-07 09:15 | CT_ITS ---
PROCEDURE: CTA HEAD W/WO CONTRAST 12/07/2024 REASON FOR EXAM: VELAZQUEZ/VISUAL DISTURBANCE TECHNIQUE: Procedure Code: CTCTAHWW Modality: CT Procedure: CTA HEAD W/WO CONTRAST Multiplanar Sagittal and Coronal images were obtained. CONTRAST: VOLUME: mL One or more dose reduction techniques were used (e.g., Automated exposure control, adjustment of the mA and/or kV according to patient size, use of iterative reconstruction technique). FINDINGS: HEAD: The intracranial segments of the bilateral ICAs appear unremarkable. The bilateral ACAs appear unremarkable. The anterior communicating artery is patent. Hypoplastic P1 segment of the right MELTER CASTER with a patent and somewhat prominent right posterior communicating artery, compatible with a origin of the right MELTER CASTER, normal variant. Otherwise the bilateral MCAs appear unremarkable. The intracranial segments of the bilateral vertebral arteries (V4) appear unremarkable. The basilar artery is unremarkable. The bilateral music department chair are unremarkable. The bilateral ophthalmic arteries are visualized and patent. CT/CTA Head W/WO Contrast IMPRESSION: No hemodynamically significant stenosis, major vessel occlusion, or aneurysm gr eater than 3 mm. Reading Location: [id number]
--- NOTE | 2024-12-07 09:15 | CT_ITS ---
PROCEDURE: BRAIN/HEAD WITHOUT CONTRAST 12/07/2024 REASON FOR EXAM: VELAZQUEZ/VISUAL DISTURBANCE TECHNIQUE: Procedure Code: CTBR Modality: CT Procedure: BRAIN/HEAD WITHOUT CONTRAST Coronal and Sagittal reconstruction series were provided. One or more dose reduction techniques were used (e.g., Automated exposure control, adjustment of the mA and/or kV according to patient size, use of iterative reconstruction technique. RADIATION DOSE SUMMARY: CTDlvol: 10.74 mGy DLP: 230.32 mGycm COMPARISON: CTA head with and without contrast, 12/07/2024. There and thank you very much FINDINGS: There is no evidence of acute intracranial hemorrhage or infarction. There are no abnormal intracranial masses or mass effects. The ventricular system and basilar cisterns are unremarkable. The skull base and calvarium are normal. There is mild nasal septal deviation to the left. The paranasal sinuses and mastoid air cells are unremarkable. The intraorbital contents are normal. The visualized extracranial soft tissues are normal. CT/Brain/Head without Contrast IMPRESSION: No evidence of intracranial pathology. Other findings as noted. Reading Location: [place] [id number]
== END | disposition home or self-care (01) ==
LOC: CT 09:13
PROVIDERS: PCP Family Medicine; Referring Provider Family Medicine; Visit Provider Family Medicine
DX: R51.9 Headache, unspecified (principal); H53.9 Unspecified visual disturbance
CPT/HCPCS: 70450; 70470; 70496; Q9967